=== PATIENT | female | born 2005 | race Two or more races ===

== ENCOUNTER 2024-05-07 06:35 | Emergency (ER) | payer BC, OTHER ==
[~2024-05-07] VITALS: Ht 154.9 cm; Wt 72.2 kg
[2024-05-07 08:07] LABS: Urine Bacteria FEW /hpf (None Seen); Urine Blood 2+ /uL (Negative); Urine Color Yellow (Yellow); Urine Mucus FEW (None Seen); Urine Protein, UAD 1+ (Negative); Urine Specific Gravity 1.035 (1.001-1.035); Urine Urobilinogen Normal (Negative); Urine WBC 1 /hpf (0 - 5); Urine pH 7.5 (5.0-9.0)
[2024-05-07 08:10] LABS: Urine Clarity Hazy (Clear)
[2024-05-07 08:28] LABS: Basophils # (auto) 0 10 ^3/uL (0-0.2); Basophils % (auto) 0.5 % (0.0-2.0); Eosinophils # (auto) 0 10 ^3/uL (0-0.8); Hematocrit 35.9 % (36.0-46.0); Hemoglobin 12.1 g/dL (12.2-16.2); Lymphocytes # (auto) 0.8 10 ^3/uL (0.4-5.4); Lymphocytes % (auto) 8.3 % (10.0-50.0); Mean Corpuscular Hemoglobin 30.1 pg (28.0-32.0); Mean Corpuscular Hgb Conc. 33.7 g/dL (32.0-36.0); Mean Corpuscular Volume 89.2 fL (80.0-100.0); Monocytes # (auto) 0.3 10 ^3/uL (0-1.3); Monocytes % (auto) 3.3 % (0.0-12.0); Neutrophils % (auto) 87.9 % (37.0-80.0); Red Blood Cells 4.03 10^6/uL (4.0-5.20); Red Cell Distribution Width 14.3 % (11.8-14.3); White Blood Cell 9.1 10^3/uL (4.4-10.8)
[2024-05-07] MEDS: SODIUM CHLORIDE 0.9% 1,000 ML IV ONE (08:37)
[2024-05-07] MEDS: ONDANSETRON HCL 4 MG/2 ML VIAL IV ONE (08:37)
[2024-05-07] MEDS ORDERED: ZOFR4T PO (09:04)
[2024-05-07] MEDS ORDERED: METR-344 PO (09:04)
[2024-05-07] MEDS: MORPHINE SULFATE INJ 2 MG/ml SYRG IV ONE (10:39)
[2024-05-07 10:40] VITALS: BP 115/71; PULSE 92; RESP 20; O2SAT 99
== END 2024-05-07 11:22 | disposition home or self-care (01) ==
LOC: ER 06:35
DX: K52.9 Noninfective gastroenteritis and colitis, unspecified (principal); F17.210 Nicotine dependence, cigarettes, uncomplicated
CPT/HCPCS: 36415; 81001; 85025; 96361; 96374; 96375; 99284; J2270; J2405; J7030

== ENCOUNTER 2024-05-07 23:54 | Emergency (ER) | payer BC ==
[~2024-05-07] VITALS: Ht 175.3 cm; Wt 71.7 kg
[~2024-05-07 23:54] MED LIST: METR-344 PO; ZOFR4T PO
[2024-05-08] VITALS: BP 111/70; PULSE 93; RESP 16; O2SAT 99
[2024-05-08 01:05] LABS: Urine Bacteria None Seen /hpf (None Seen)
[2024-05-08 01:36] LABS: Urine Blood TRACE /uL (Negative); Urine Clarity Clear (Clear); Urine Color Yellow (Yellow); Urine Mucus FEW (None Seen); Urine Protein, UAD 1+ (Negative); Urine Specific Gravity 1.034 (1.001-1.035); Urine Urobilinogen Normal (Negative); Urine WBC 6 /hpf (0 - 5); Urine pH 6.5 (5.0-9.0)
== END 2024-05-08 05:17 | disposition left against medical advice (07) ==
LOC: ER 23:54
DX: R10.10 Upper abdominal pain, unspecified (principal); R11.2 Nausea with vomiting, unspecified; F12.90 Cannabis use, unspecified, uncomplicated; Z53.21 Procedure and treatment not carried out due to patient leaving prior to being seen by health care provider
CPT/HCPCS: 81001

== ENCOUNTER 2024-05-10 10:24 | Emergency (ER) | payer BC ==
[~2024-05-10] VITALS: Ht 157.5 cm; Wt 69.6 kg
[2024-05-10 11:50] VITALS: TEMP 98.3
[2024-05-10] MEDS: SODIUM CHLORIDE 0.9% 1,000 ML IVB ONE (11:56)
[2024-05-10 11:57] LABS: Alanine Aminotransferase 17 U/L (7-40); Albumin 4.6 g/dL (3.2-4.8); Alkaline Phosphatase 151 U/L (46-116); Anion Gap 11 (5-15); Aspartate Aminotransferase 15 U/L (13-40); BUN/Creatinine Ratio 11.9 (10.0-20.0); Blood Urea Nitrogen 10 mg/dL (9-23); Calcium 9.2 mg/dL (8.7-10.4); Carbon Dioxide 23 mmol/L (20-30); Chloride 105 mmol/L (98-107); Glucose 90 mg/dL (74-106); Lipase 29 U/L (12-53); Sodium 139 mmol/L (136-145)
[2024-05-10 11:58] LABS: Bilirubin, Total 0.7 mg/dL (0.2-1.0); Total Protein 7.8 g/dL (5.7-8.2)
[2024-05-10 12:02] VITALS: PULSE 75; RESP 15; O2SAT 95
[2024-05-10] MEDS: PANTOPRAZOLE 40 MG/10 ML VIAL INJ IV ONE (12:02)
[2024-05-10] MEDS: PROCHLORPERAZINE EDISYLATE 5 MG/ML 2ML VIAL IV ONE (12:02)
[2024-05-10 13:13] LABS: Urine Bacteria FEW /hpf (None Seen); Urine Blood Negative /uL (Negative); Urine Clarity Turbid (Clear); Urine Color Yellow (Yellow); Urine Mucus MODERATE (None Seen); Urine Protein, UAD 1+ (Negative); Urine Specific Gravity 1.027 (1.001-1.035); Urine Urobilinogen Normal (Negative); Urine WBC 4 /hpf (0 - 5); Urine pH 6.5 (5.0-9.0)
[2024-05-10] MEDS ORDERED: ZOFR4T PO (13:55)
[2024-05-10] MEDS ORDERED: CIPR-173 PO (13:55)
[2024-05-10] MEDS: POTASSIUM CHL 20 Meq TABLET PO ONE (14:28)
[2024-05-10 14:35] VITALS: BP 124/73; PULSE 81; RESP 16; O2SAT 100
== END 2024-05-10 14:42 | disposition home or self-care (01) ==
LOC: ER 10:24
DX: N39.0 Urinary tract infection, site not specified (principal); R11.2 Nausea with vomiting, unspecified; F15.90 Other stimulant use, unspecified, uncomplicated; Z79.899 Other long term (current) drug therapy
CPT/HCPCS: 36415; 80053; 81001; 81025; 83690; 96361; 96374; 96375; 99284; J0780; J2470; J7030

== ENCOUNTER 2024-06-30 19:29 | Inpatient (IN) | payer BC ==
[~2024-06-30] VITALS: Ht 154.9 cm; Wt 74.8 kg
[2024-06-30] MEDS: SODIUM CHLORIDE 0.9% 1,000 ML IV ONE ×2 (00:32→21:15)
[~2024-06-30 19:29] MED LIST changes: +CIPR-173 PO
[2024-06-30 19:50] LABS: Urine Bacteria None Seen /hpf (None Seen)
[2024-06-30 20:00] LABS: Urine Blood 3+ /uL (Negative); Urine Clarity Clear (Clear); Urine Color Light-Orange (Yellow); Urine Mucus FEW (None Seen); Urine Protein, UAD 1+ (Negative); Urine Urobilinogen Normal (Negative); Urine WBC 25 /hpf (0 - 5)
[2024-06-30 20:45] VITALS: PULSE 80; RESP 18; O2SAT 98
[2024-06-30 21:20] LABS: Basophils # (auto) 0.1 10 ^3/uL (0-0.2); Basophils % (auto) 0.9 % (0.0-2.0); Eosinophils # (auto) 0 10 ^3/uL (0-0.8); Eosinophils % (auto) 0.1 % (0.0-7.0); Hematocrit 36.6 % (36.0-46.0); Hemoglobin 12.1 g/dL (12.2-16.2); Lymphocytes # (auto) 2.4 10 ^3/uL (0.4-5.4); Lymphocytes % (auto) 22.4 % (10.0-50.0); Mean Corpuscular Hemoglobin 29.5 pg (28.0-32.0); Mean Corpuscular Hgb Conc. 33.1 g/dL (32.0-36.0); Mean Corpuscular Volume 89.1 fL (80.0-100.0); Monocytes # (auto) 0.8 10 ^3/uL (0-1.3); Neutrophils # (auto) 7.3 10 ^3/uL (1.6-8.6); Neutrophils % (auto) 68.6 % (37.0-80.0); Platelet Count (auto) 360 10^3/uL (140-450); Red Blood Cells 4.11 10^6/uL (4.0-5.20); Red Cell Distribution Width 14.7 % (11.8-14.3); White Blood Cell 10.6 10^3/uL (4.4-10.8)
[2024-06-30 21:37] LABS: Alanine Aminotransferase 23 U/L (7-40); Alkaline Phosphatase 149 U/L (46-116); Anion Gap 10 (5-15); Aspartate Aminotransferase 18 U/L (13-40); BUN/Creatinine Ratio 12.4 (10.0-20.0); Blood Urea Nitrogen 12 mg/dL (9-23); Calcium 9.8 mg/dL (8.7-10.4); Carbon Dioxide 22 mmol/L (20-30); Chloride 105 mmol/L (98-107); Glucose 94 mg/dL (74-106); Potassium 3.5 mmol/L (3.5-5.1); Sodium 137 mmol/L (136-145)
[2024-06-30 21:38] LABS: Bilirubin, Total 0.8 mg/dL (0.2-1.0); Total Protein 8.3 g/dL (5.7-8.2)
[2024-07-01] MEDS ORDERED: HYDROcodone-ACET 5/325MG TAB PO PRN
[2024-07-01] MEDS ORDERED: NITROGLYCERIN 0.4 MG SL TAB SL PRN
[2024-07-01] MEDS ORDERED: ACETAMINOPHEN 325 MG TAB PO PRN
[2024-07-01] MEDS ORDERED: MORPHINE SULFATE INJ 2 MG/ml SYRG IV PRN
[2024-07-01] MEDS ORDERED: DOCUSATE SOD 100 MG CAP PO PRN
[2024-07-01] MEDS: cefTRIAXone 1GM/50ML D5W 50 ML IV ONE (00:30)
[2024-07-01] MEDS: ONDANSETRON HCL 4 MG/2 ML VIAL IV ONE (00:30)
[2024-07-01] MEDS: MORPHINE SULFATE INJ 2 MG/ml SYRG IV ONE (00:32)
[2024-07-01 02:54] VITALS: BP 125/84; PULSE 75; RESP 18; TEMP 98.3; O2SAT 98
[2024-07-01] MEDS ORDERED: PANT40TA2 PO (03:13)
[2024-07-01] MEDS: D5W/SOD CHLO 0.9% 1,000 ML IV SCH (03:15)
[2024-07-01] MEDS: ONDANSETRON HCL 4 MG/2 ML VIAL IV PRN (04:41)
[2024-07-01] MEDS: MORPHINE SULFATE INJ 2 MG/ml SYRG IV PRN (04:54)
[2024-07-01 05:00] VITALS: BP 116/84; PULSE 78; RESP 15; TEMP 98.9; O2SAT 100
[2024-07-01 06:39] LABS: Basophils # (auto) 0 10 ^3/uL (0-0.2); Basophils % (auto) 0.4 % (0.0-2.0); Eosinophils # (auto) 0 10 ^3/uL (0-0.8); Eosinophils % (auto) 0.1 % (0.0-7.0); Hematocrit 32.3 % (36.0-46.0); Hemoglobin 11.3 g/dL (12.2-16.2); Lymphocytes # (auto) 1.5 10 ^3/uL (0.4-5.4); Lymphocytes % (auto) 19.2 % (10.0-50.0); Mean Corpuscular Hemoglobin 31.5 pg (28.0-32.0); Mean Corpuscular Hgb Conc. 34.9 g/dL (32.0-36.0); Mean Corpuscular Volume 90.1 fL (80.0-100.0); Monocytes # (auto) 0.7 10 ^3/uL (0-1.3); Monocytes % (auto) 8.5 % (0.0-12.0); Neutrophils # (auto) 5.6 10 ^3/uL (1.6-8.6); Neutrophils % (auto) 71.8 % (37.0-80.0); Platelet Count (auto) 282 10^3/uL (140-450); Red Blood Cells 3.58 10^6/uL (4.0-5.20); Red Cell Distribution Width 14.6 % (11.8-14.3); White Blood Cell 7.8 10^3/uL (4.4-10.8)
[2024-07-01 06:50] LABS: Alanine Aminotransferase 17 U/L (7-40); Alkaline Phosphatase 125 U/L (46-116); Anion Gap 8 (5-15); BUN/Creatinine Ratio 13.2 (10.0-20.0); Blood Urea Nitrogen 10 mg/dL (9-23); Calcium 8.3 mg/dL (8.7-10.4); Carbon Dioxide 22 mmol/L (20-30); Chloride 109 mmol/L (98-107); Glucose 96 mg/dL (74-106); Potassium 3.3 mmol/L (3.5-5.1); Sodium 139 mmol/L (136-145)
[2024-07-01 06:51] LABS: Albumin 4.2 g/dL (3.2-4.8); Aspartate Aminotransferase 12 U/L (13-40); Bilirubin, Total 0.5 mg/dL (0.2-1.0); Total Protein 6.9 g/dL (5.7-8.2)
[2024-07-01 09:00] VITALS: BP 110/71; PULSE 64; RESP 20; TEMP 97.9; O2SAT 99
[2024-07-01] MEDS: POTASSIUM EFFERVESENT TAB 25 MEQ PO ONE (09:00)
[2024-07-01] MEDS: cefTRIAXone 1GM/50ML D5W 50 ML IV SCH (09:23)
[2024-07-01] MEDS: POTASSIUM CHL 20MEQ/100ML 100 ML IV ONE (11:41)
[2024-07-01 13:00] VITALS: BP 119/75; PULSE 80; RESP 20; TEMP 98.3; O2SAT 98
[2024-07-01 17:00] VITALS: BP 116/79; PULSE 67; RESP 20; TEMP 98.3; O2SAT 96
[2024-07-01 21:00] VITALS: BP 101/52; PULSE 64; RESP 16; TEMP 98.6; O2SAT 98
[2024-07-02 01:00] VITALS: BP 101/68; PULSE 67; RESP 16; TEMP 98.4; O2SAT 97
[2024-07-02 05:00] VITALS: BP 105/70; PULSE 63; RESP 16; TEMP 97.6; O2SAT 97
[2024-07-02 06:31] LABS: Alanine Aminotransferase 14 U/L (7-40); Alkaline Phosphatase 120 U/L (46-116); Anion Gap 10 (5-15); Aspartate Aminotransferase 12 U/L (13-40); Basophils # (auto) 0.1 10 ^3/uL (0-0.2); Basophils % (auto) 0.9 % (0.0-2.0); Calcium 8.5 mg/dL (8.7-10.4); Carbon Dioxide 20 mmol/L (20-30); Chloride 108 mmol/L (98-107); Eosinophils # (auto) 0.1 10 ^3/uL (0-0.8); Eosinophils % (auto) 0.7 % (0.0-7.0); Glucose 95 mg/dL (74-106); Hematocrit 33.5 % (36.0-46.0); Hemoglobin 11.4 g/dL (12.2-16.2); Lymphocytes # (auto) 2.7 10 ^3/uL (0.4-5.4); Lymphocytes % (auto) 39.5 % (10.0-50.0); Mean Corpuscular Hemoglobin 31.2 pg (28.0-32.0); Mean Corpuscular Hgb Conc. 33.9 g/dL (32.0-36.0); Mean Corpuscular Volume 91.9 fL (80.0-100.0); Monocytes # (auto) 0.6 10 ^3/uL (0-1.3); Monocytes % (auto) 8.2 % (0.0-12.0); Neutrophils # (auto) 3.5 10 ^3/uL (1.6-8.6); Neutrophils % (auto) 50.7 % (37.0-80.0); Nucleated Red Blood Cells % 0.1 %; Platelet Count (auto) 268 10^3/uL (140-450); Potassium 3.3 mmol/L (3.5-5.1); Red Blood Cells 3.64 10^6/uL (4.0-5.20); Red Cell Distribution Width 14.4 % (11.8-14.3); Sodium 138 mmol/L (136-145); White Blood Cell 6.8 10^3/uL (4.4-10.8)
[2024-07-02 06:32] LABS: Bilirubin, Total 0.7 mg/dL (0.2-1.0); Total Protein 6.6 g/dL (5.7-8.2)
[2024-07-02 06:36] LABS: BUN/Creatinine Ratio 6.9 (10.0-20.0); Blood Urea Nitrogen < 5 mg/dL (9-23)
[2024-07-02 09:00] VITALS: BP 111/76; PULSE 71; RESP 16; TEMP 98.4; O2SAT 97
[2024-07-02] MEDS: POTASSIUM CHLORIDE 40 MEQ, LIDOCAINE 1% (LOCAL ANESTH.) 4 ML in SODIUM CHL 0.9% 250 ML IV ONE (11:08)
[2024-07-02 12:59] LABS: Hepatitis B Surface Antibody Negative (Negative)
[2024-07-02 13:00] VITALS: BP 124/81; PULSE 57; RESP 17; TEMP 98.3; O2SAT 98
[2024-07-02 13:01] LABS: Hepatitis B Surface Antigen Negative (Negative)
[2024-07-02 13:23] LABS: Hepatitis C Antibody Negative (Negative)
[2024-07-02] MEDS: PANTOPRAZOLE 40 MG/10 ML VIAL INJ IV ONE (13:48)
[2024-07-02] MEDS: metroNIDAZOLE 500MG/100ML 100 ML IV SCH (15:40)
[2024-07-02 17:00] VITALS: BP 116/70; PULSE 63; RESP 17; TEMP 98.5; O2SAT 98
[2024-07-02 21:00] VITALS: BP 130/93; PULSE 85; RESP 22; TEMP 98; O2SAT 98
[2024-07-03 01:00] VITALS: BP 109/71; PULSE 60; RESP 22; TEMP 97.4; O2SAT 100
[2024-07-03 05:00] VITALS: BP 112/75; PULSE 61; RESP 22; TEMP 97.6; O2SAT 99
[2024-07-03 06:26] LABS: Basophils # (auto) 0 10 ^3/uL (0-0.2); Basophils % (auto) 0.7 % (0.0-2.0); Eosinophils # (auto) 0.1 10 ^3/uL (0-0.8); Hematocrit 36.6 % (36.0-46.0); Hemoglobin 12.2 g/dL (12.2-16.2); Lymphocytes # (auto) 1.9 10 ^3/uL (0.4-5.4); Lymphocytes % (auto) 30.9 % (10.0-50.0); Mean Corpuscular Hemoglobin 29.8 pg (28.0-32.0); Mean Corpuscular Hgb Conc. 33.3 g/dL (32.0-36.0); Mean Corpuscular Volume 89.7 fL (80.0-100.0); Monocytes # (auto) 0.5 10 ^3/uL (0-1.3); Monocytes % (auto) 7.6 % (0.0-12.0); Neutrophils # (auto) 3.6 10 ^3/uL (1.6-8.6); Neutrophils % (auto) 59.8 % (37.0-80.0); Platelet Count (auto) 293 10^3/uL (140-450); Red Blood Cells 4.08 10^6/uL (4.0-5.20); Red Cell Distribution Width 14.7 % (11.8-14.3)
[2024-07-03 06:39] LABS: INR 1.09 (0.9-1.15); Partial Thromboplastin Time 28.8 SEC (24.5-34.5); Prothrombin Time 11.5 sec (9.3-11.8)
[2024-07-03 06:47] LABS: Chloride 106 mmol/L (98-107); Potassium 3.1 mmol/L (3.5-5.1); Sodium 139 mmol/L (136-145)
[2024-07-03 06:48] LABS: Anion Gap 8 (5-15); Calcium 9.4 mg/dL (8.7-10.4); Carbon Dioxide 25 mmol/L (20-30)
[2024-07-03 06:53] LABS: Glucose 89 mg/dL (74-106)
[2024-07-03 06:54] LABS: Magnesium 2.2 mg/dL (1.6-2.6)
[2024-07-03 06:55] LABS: BUN/Creatinine Ratio 6.8 (10.0-20.0); Blood Urea Nitrogen < 5 mg/dL (9-23)
[2024-07-03 07:06] LABS: RPR Non Reactive (Non Reactive)
[2024-07-03 08:05] VITALS: BP 145/73; PULSE 71; RESP 18; TEMP 98.4; O2SAT 97
[2024-07-03] MEDS: POTASSIUM CHLORIDE 60 MEQ, LIDOCAINE 1% (LOCAL ANESTH.) 6 ML in SODIUM CHL 0.9% 500 ML IV ONE (08:15)
[2024-07-03] MEDS: PANTOPRAZOLE 40 MG/10 ML VIAL INJ IV SCH (09:16)
[2024-07-03 12:05] VITALS: BP 137/89; PULSE 63; RESP 18; TEMP 98.3; O2SAT 97
[2024-07-03] MEDS ORDERED: PANT40TA2 PO (15:24)
[2024-07-03 16:10] VITALS: BP 123/92; PULSE 77; RESP 18; TEMP 98.2; O2SAT 98
[2024-07-03 17:16] VITALS: BP 137/89; PULSE 63; RESP 18; TEMP 98.3; O2SAT 97
== END 2024-07-03 18:47 | disposition home or self-care (01) | DRG 392 ==
LOC: ER 19:29 → OVERFLOW 23:50 → CENTRAL 07-01 02:25
PROVIDERS: ADMIT Internal Medicine; ATTEND Emergency Medicine
DX: K52.9 Noninfective gastroenteritis and colitis, unspecified (principal); N39.0 Urinary tract infection, site not specified; D64.9 Anemia, unspecified; F12.10 Cannabis abuse, uncomplicated; E87.6 Hypokalemia; E87.8 Other disorders of electrolyte and fluid balance, not elsewhere classified; E66.9 Obesity, unspecified; Z79.2 Long term (current) use of antibiotics; Z79.899 Other long term (current) drug therapy; Z83.3 Family history of diabetes mellitus; Z87.440 Personal history of urinary (tract) infections; Z90.49 Acquired absence of other specified parts of digestive tract; Z71.51 Drug abuse counseling and surveillance of drug abuser; Z68.31 Body mass index [BMI] 31.0-31.9, adult
CPT/HCPCS: 36415; 74176; 76705; 80048; 80053; 81001; 81025; 83735; 85025; 85610; 85730; 86592; 86703; 86706; 86803; 87086; 87340; 99291; G0378; J2001; J2405; J2470; J3480; J3490; J7042

== ENCOUNTER 2024-09-06 19:29 | Emergency (ER) | payer BC ==
[~2024-09-06] VITALS: Ht 157.5 cm; Wt 71.1 kg
[~2024-09-06 19:29] MED LIST changes: +PANT40TA2 PO
--- NOTE | 2024-09-06 20:00 | ED.PDOC ---
GI ASSESSMENT HPI Comments 18 year old female came to ER due to abdominal pain. Patient states for the past 2 days she has been having intermittent episodes of left lower quadrant abdominal pain, associated with bouts of nausea, vomiting and loose non bloody diarrhea. States she could not keep anything in. Was given Zofran but offered no relief. Denies being . Denies any abdominal surgeries, Chief Complaint: Abdominal Pain Time Seen by MD: 19:58 Primary Care Provider: UNKNOWN Reviewed Notes: Nurses Notes Allergies: Coded Allergies: NO KNOWN ALLERGIES (Unverified , 05/07/24) Home Meds Active Scripts Pantoprazole Sodium Sesquihydr (Protonix) 40 Mg Tab, 40 MG PO DAILY for 30 Days, #30 TAB Prov:KARLEY CANDELARIO MD 07/03/24 Ciprofloxacin Hcl (Cipro) 500 Mg Tab, 1 TAB PO BID, #14 TAB Prov:ALEX OLIVER MD 05/10/24 Ondansetron Odt 4MG Tab (ZOFRAN PO) 4 Mg Tb, 4 MG PO DAILY for 5 Days, #5 TAB ODT TAB-DISSOLVE IN MOUTH, THEN SWALLOW Prov:ALEX OLIVER MD 05/10/24 Metronidazole (Flagyl) 500 Mg Tab, 1 TAB PO TID for 5 Days, #15 TAB Prov:CISCO MONTANEZ MD 05/07/24 Reported Medications Pantoprazole Sodium Sesquihydr (Protonix) 40 Mg Tab, PO DAILY, #30 TAB 07/01/24 Information Source: Patient Mode of Arrival: Ambulatory Timing: Hours Duration: Since onset Prehospital treatment: None Quality: Aching Vomitus: Watery Stool: Loose, Watery Severity: Moderate Recent: Possible spoiled food Recent Hx of: None Pain Location: LLQ Modifying Factors: Nothing Associated sign and symptoms: Nausea, Vomiting, Diarrhea, Abdominal Pain Past Medical History PAST MEDICAL HISTORY: UTI'S Surgical History: Denies all surgeries 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 Family History Family History: Family hx of DM Social History Smoker: Non-Smoker Alcohol: Occasionally Drugs: Marijuana Lives In: Home Constitutional: denies: chills, diaphoresis, fatigue, fever, malaise, sweats, weakness, others EENTM: denies: blurred vision, double vision, ear bleeding, ear discharge, ear drainage, ear pain, ear ringing, eye pain, eye redness, hearing loss, mouth pain, mouth swelling, nasal discharge, nose bleeding, nose congestion, nose mervin n, photophobia, tearing, throat pain, throat swelling, voice changes, others Respiratory: denies: cough, hemoptysis, orthopnea, SOB at rest, shortness of breath, SOB with excertion, stridor, wheezing, others Cardiovascular: denies: chest pain, dizzy spells, diaphoresis, Dyspnea on exertion, edema, irregular heart beat, left arm pain, lightheadedness, palpitations, PND, syncope, others Gastrointestinal: reports: abdominal pain, diarrhea, nausea, vomiting; denies: abdomen distended, blood streaked bowels, constipated, dysphagia, difficulty swallowing, hematemesis, melena, poor appetite, poor fluid intake, rectal bleeding, rectal pain, others Genitourinary: denies: abnormal vagina bleeding, burning, dyspareunia, dysuria, flank pain, frequency, hematuria, incontinence, pain, , vagina discharge, urgency, others Neurological: denies: dizziness, fainting, headache, left sided numbness, left sided weakness, numbness, paresthesia, pre-existing deficit, right sided numbness, right sided weakness, seizure, speech problems, tingling, tremors, weakness, others Musculoskeletal: denies: back pain, gout, joint pain, joint swelling, muscle pain, muscle stiffness, neck pain, others Integumetry: denies: bruises, change in color, change in hair/nails, dryness, laceration, lesions, lumps, rash, wounds, others Allergic/Immunocompromised: denies: Difficulty Healing, Frequent Infections, Hives, Itching, others Hematologic/Lymphatic: denies: anemia, blood clots, easy bleeding, easy bruising, swollen glands, others Endocrine: denies: excessive hunger, excessive sweating, excessive thirst, excessive urination, flushing, intolerance to cold, intolerance to heat, unexplained weight gain, unexplained weight loss, others Psychiatric: denies: anxiety, bipolar disorder, depression, hopeless, panic disorder, schizophrenia, sleepless, suicidal, others Physical Exam General Appearance: No Apparent Distress, Normal HEENT: Normal ENT Inspection, Pharynx Normal, TMs Normal Neck: Full Range of Motion, Non-Tender, Normal, Normal Inspection Respiratory: Chest Non-Tender, Lungs Clear, No Accessory Muscle Use, No Respiratory Distress, Normal Breath Sounds Cardiovascular: No Edema, No JVD, No Murmur, No Gallop, Normal Peripheral Pulses, Regular Rate/Rhythm Breast Exam: Deferred Gastrointestinal: LLQ, No Organomegaly, No Pulsatile Mass, Normal Bowel Sounds, Soft, Tenderness Genitalia: Deferred Pelvic: Deferred Rectal: Deferred Extremities: No calf tenderness, Normal capillary refill, Normal inspection, Normal range of motion, Non-tender, No pedal edema Musculoskeletal : Apperance: Normal Neurologic: Alert, services tech II-XII nml as Tested, No Motor Deficits, Normal Affect, Normal Mood, No Sensory Deficits Cerebellar Function: Normal Reflexes: Normal Skin: Dry, Normal Color, Warm Lymphatic: No Adenopathy Was a procedure done? Was a procedure done?: No GI differential Dx Differential Diagnosis: Diverticular disease, Gastritis/PUD, Gastroenteritis, Ovarian cyst/torsion, Pancreatitis, UTI, Urolithiasis, Dehydration X-Ray, Labs, Meds, VS Vital Signs Date Time Temp Pulse Resp B/P (MAP) Pulse Ox O2 Delivery O2 Flow Rate FiO2 09/06/24 22:28 Room Air* 0 21 09/06/24 22:19 98.9 72 18 114/69 (84) 98 98.9 09/06/24 19:36 99.3 112 18 109/67 (81) 99 Lab Test 09/06/24 20:10 09/06/24 19:42 Range/Units White Blood Count 11.5 H 4.4-10.8 10^3/uL Red Blood Count 4.28 4.0-5.20 10^6/uL Hemoglobin 12.4 12.2-16.2 g/dL Hematocrit 37.5 36.0-46.0 % Mean Corpuscular Volume 87.6 80.0-100.0 fL Mean Corpuscular Hemoglobin 28.8 28.0-32.0 pg Mean Corpuscular Hemoglobin Concent 32.9 32.0-36.0 g/dL Red Cell Distribution Width 14.7 H 11.8-14.3 % Platelet Count 372 140-450 10^3/uL Mean Platelet Volume 8.5 6.9-10.8 fL Neutrophils (%) (Auto) 80.4 H 37.0-80.0 % Lymphocytes (%) (Auto) 11.8 10.0-50.0 % Monocytes (%) (Auto) 7.5 0.0-12.0 % Eosinophils (%) (Auto) 0.0 0.0-7.0 % Basophils (%) (Auto) 0.3 0.0-2.0 % Neutrophils # (Auto) 9.3 H 1.6-8.6 10 ^3/uL Lymphocytes # (Auto) 1.4 0.4-5.4 10 ^3/uL Monocytes # (Auto) 0.9 0-1.3 10 ^3/uL Eosinophils # (Auto) 0 0-0.8 10 ^3/uL Basophils # (Auto) 0 0-0.2 10 ^3/uL Nucleated Red Blood Cells 0.0 % Sodium Level 140 136-145 mmol/L Potassium Level 3.2 L 3.5-5.1 mmol/L Chloride Level 102 98-107 mmol/L Carbon Dioxide Level 26 20-31 mmol/L Anion Gap 12 5-15 Blood Urea Nitrogen 12 9-23 mg/dL Creatinine 0.82 0.550-1.02 mg/dL Glomerular Filtration Rate Calc 106 >90 mL/min BUN/Creatinine Ratio 14.6 10.0-20.0 Serum Glucose 107 H 74-106 mg/dL Calcium Level 9.8 8.7-10.4 mg/dL Urine Color Yellow Yellow Urine Clarity Clear Clear Urine pH 6.0 5.0-9.0 Urine Specific [place] 1.033 1.001-1.035 Urine Protein 1+ H Negative Urine Ketones 4+ H Negative Urine Blood 3+ H Negative /uL Urine Nitrite Negative Negative Urine Bilirubin Negative Negative Urine Urobilinogen Normal Negative mg/dL Urine Leukocyte Esterase Trace Negative /uL Urine RBC 115 0 - 4 /hpf Urine WBC 5 0 - 5 /hpf Urine Squamous Epithelial Cells Few <5 /hpf Urine Bacteria None seen None Seen /hpf Urine Mucus Few None Seen Urine Glucose Normal Normal mg/dL Current Medications Medications (Trade) Dose Ordered Sig/Nikki Route Start Time Stop Time Status Last Admin Sodium Chloride 1,000 ml @ 1,000 mls/hr Q1H ONCE IV 09/06/24 20:00 09/06/24 21:04 DC 09/06/24 22:22 Ondansetron HCl (Zofran) 4 mg ONCE ONCE IV 09/06/24 20:00 11/14/24 20:01 DC 09/06/24 22:23 Famotidine (Pepcid Injection) 20 mg ONCE ONCE IV 09/06/24 20:00 09/06/24 20:01 DC 09/06/24 22:23 Ketorolac Tromethamine (Toradol Injection) 15 mg ONCE ONCE IV 09/06/24 20:00 09/06/24 20:01 DC 09/06/24 22:23 Time of 1ST Reevaluation: 19:53 Reevaluation 1ST: Unchanged Patient Education/Counseling: Diagnosis, Treatment Family Education/Counseling: No Family Present Departure 1 Departure Time of Disposition: 23:08 (Patient with diagnosed with COVID less than a week ago. Patient's symptoms are consistent with a viral syndrome. Patient went benign labs and benign UA. We will discharge patient home with outpatient follow up) Impression: Primary Impression: Acute viral syndrome Additional Impressions: COVID-19 Nausea and vomiting Qualified Codes: R11.2 - Nausea with vomiting, unspecified Abdominal pain Qualified Codes: R10.84 - Generalized abdominal pain Disposition: 01 HOME / SELF CARE / HOMELESS Condition: Stable Additional Instructions: You likely have a viral illness. It is important to stay well rested and well hydrated. You can take Tylenol and Motrin as needed for pain and fever. For a sore throat you can drink warm tea with honey. You can take [id number] pseudoephedrine for nasal congestion. He should follow up with your regular doctor within 1 week to ensure you are doing better. If your symptoms worsen or you have any other concerns please return to the emergency room. Discharged With: Self Critical Care Note Critical Care Time?: No Stability Stability form required: No Heart Score Heart Score: Heart Score Response (Comments) Value History N/A 0 EKG N/A 0 Age N/A 0 Risk Factors N/A 0 Troponin N/A 0 Total 0 I personally scribed for TISHA LANDRY MD ([email or web address]) on 09/06/24 at 20:00. Electronically submitted by Steve Edwards ([facility]). TISHA LANDRY MD Sep 06, 2024 20:00
[2024-09-06 20:14] LABS: Urine Bacteria None Seen /hpf (None Seen)
[2024-09-06 20:38] LABS: Urine Blood 3+ /uL (Negative); Urine Clarity Clear (Clear); Urine Color Yellow (Yellow); Urine Mucus FEW (None Seen); Urine Protein, UAD 1+ (Negative); Urine Specific Gravity 1.033 (1.001-1.035); Urine Urobilinogen Normal (Negative); Urine WBC 5 /hpf (0 - 5)
[2024-09-06 20:40] LABS: Basophils # (auto) 0 10 ^3/uL (0-0.2); Basophils % (auto) 0.3 % (0.0-2.0); Eosinophils # (auto) 0 10 ^3/uL (0-0.8); Hematocrit 37.5 % (36.0-46.0); Hemoglobin 12.4 g/dL (12.2-16.2); Lymphocytes # (auto) 1.4 10 ^3/uL (0.4-5.4); Lymphocytes % (auto) 11.8 % (10.0-50.0); Mean Corpuscular Hemoglobin 28.8 pg (28.0-32.0); Mean Corpuscular Hgb Conc. 32.9 g/dL (32.0-36.0); Mean Corpuscular Volume 87.6 fL (80.0-100.0); Monocytes # (auto) 0.9 10 ^3/uL (0-1.3); Monocytes % (auto) 7.5 % (0.0-12.0); Neutrophils # (auto) 9.3 10 ^3/uL (1.6-8.6); Neutrophils % (auto) 80.4 % (37.0-80.0); Platelet Count (auto) 372 10^3/uL (140-450); Red Blood Cells 4.28 10^6/uL (4.0-5.20); Red Cell Distribution Width 14.7 % (11.8-14.3); White Blood Cell 11.5 10^3/uL (4.4-10.8)
[2024-09-06 20:50] LABS: Chloride 102 mmol/L (98-107); Potassium 3.2 mmol/L (3.5-5.1); Sodium 140 mmol/L (136-145)
[2024-09-06 20:51] LABS: Anion Gap 12 (5-15); Carbon Dioxide 26 mmol/L (20-31)
[2024-09-06 20:52] LABS: Calcium 9.8 mg/dL (8.7-10.4)
[2024-09-06 20:56] LABS: BUN/Creatinine Ratio 14.6 (10.0-20.0); Blood Urea Nitrogen 12 mg/dL (9-23); Glucose 107 mg/dL (74-106)
[2024-09-06] MEDS: SODIUM CHLORIDE 0.9% 1,000 ML IV ONE (22:22)
[2024-09-06] MEDS: KETOROLAC TROMETH 30 MG/ML 1ML VIAL IV ONE (22:23)
[2024-09-06] MEDS: FAMOTIDINE (10MG/ML) 2ML VL IV ONE (22:23)
[2024-09-06] MEDS: ONDANSETRON HCL 4 MG/2 ML VIAL IV ONE (22:23)
[2024-09-06 23:25] VITALS: BP 106/70; PULSE 70; RESP 16; TEMP 99.1; O2SAT 99
== END 2024-09-06 23:55 | disposition home or self-care (01) ==
LOC: ER 19:29
DX: U07.1 COVID-19 (principal); B34.9 Viral infection, unspecified; R11.2 Nausea with vomiting, unspecified; R10.9 Unspecified abdominal pain
CPT/HCPCS: 36415; 80048; 81001; 85025; 96361; 96374; 96375; 99284; J1885; J2405; J3490; J7030

== ENCOUNTER 2024-10-04 08:55 | Inpatient (IN) | payer BC ==
[~2024-10-04] VITALS: Ht 157.5 cm; Wt 75.1 kg
--- NOTE | 2024-10-04 09:09 | ED.PDOC ---
GI ASSESSMENT HPI Comments 18 y.o pale appearing female presents to the ED for a chief complaint of abdominal pain associated with nausea, vomiting, diarrhea, and SOB that started 2 days ago. Patient reports pain has been constant, localized to the mid upper region that does not radiate and has no modifying factors. Patient denies eating any out of her usual, hematuria, bloody stool, hematemesis, fever, chills. Chief Complaint: Nausea/Vomiting Time Seen by MD: 09:02 Primary Care Provider: UNKNOWN Reviewed Notes: Nurses Notes, Medications, Allergies Allergies: Coded Allergies: NO KNOWN ALLERGIES (Unverified , 05/07/24) Home Meds Active Scripts Pantoprazole Sodium Sesquihydr (Protonix) 40 Mg Tab, 40 MG PO DAILY for 30 Days, #30 TAB Prov:KARLEY CANDELARIO MD 07/03/24 Ciprofloxacin Hcl (Cipro) 500 Mg Tab, 1 TAB PO BID, #14 TAB Prov:ALEX OLIVER MD 05/10/24 Ondansetron Odt 4MG Tab (ZOFRAN PO) 4 Mg Tb, 4 MG PO DAILY for 5 Days, #5 TAB ODT TAB-DISSOLVE IN MOUTH, THEN SWALLOW Prov:ALEX OLIVER MD 05/10/24 Metronidazole (Flagyl) 500 Mg Tab, 1 TAB PO TID for 5 Days, #15 TAB Prov:CISCO MONTANEZ MD 05/07/24 Reported Medications Pantoprazole Sodium Sesquihydr (Protonix) 40 Mg Tab, PO DAILY, #30 TAB 07/01/24 Information Source: Patient Mode of Arrival: Ambulatory Timing: Days (2) Duration: Since onset Quality: Aching Vomitus: Hard Stool: Loose Severity: Moderate Recent: None Recent Hx of: None Pain Location: Diffuse, Epigastric Modifying Factors: Nothing Associated sign and symptoms: Nausea, Vomiting, Diarrhea, Abdominal Pain Past Medical History PAST MEDICAL HISTORY: UTI'S Surgical History: Denies all surgeries 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 Family History Family History: Family hx of DM Social History Smoker: Non-Smoker Alcohol: Occasionally Drugs: Marijuana Lives In: Home Constitutional: denies: chills, diaphoresis, fatigue, fever, malaise, sweats, weakness, others EENTM: denies: blurred vision, double vision, ear bleeding, ear discharge, ear drainage, ear pain, ear ringing, eye pain, eye redness, hearing loss, mouth pain, mouth swelling, nasal discharge, nose bleeding, nose congestion, nose pain, photophobia, tearing, throat pain, throat swelling, voice changes, others Respiratory: reports: shortness of breath; denies: cough, hemoptysis, orthopnea, SOB at rest, SOB with excertion, stridor, wheezing, others Cardiovascular: denies: chest pain, dizzy spells, diaphoresis, Dyspnea on exertion, edema, irregular heart beat, left arm pain, lightheadedness, palpitations, PND, syncope, others Gastrointestinal: reports: abdominal pain, diarrhea, nausea, vomiting; denies: abdomen distended, blood streaked bowels, constipated, dysphagia, difficulty swallowing, hematemesis, melena, poor appetite, poor fluid intake, rectal bleeding, rectal pain, others Genitourinary: denies: abnormal vagina bleeding, burning, dyspareunia, dysuria, flank pain, frequency, hematuria, incontinence, pain, , vagina discharge, urgency, others Neurological: denies: dizziness, fainting, headache, left sided numbness, left sided weakness, numbness, paresthesia, pre-existing deficit, right sided numbness, right sided weakness, seizure, speech problems, tingling, tremors, weakness, others Musculoskeletal: denies: back pain, gout, joint pain, joint swelling, muscle pain, muscle stiffness, neck pain, others Integumetry: reports: change in color (pale appearing ); denies: bruises, sheron nge in hair/nails, dryness, laceration, lesions, lumps, rash, wounds, others Allergic/Immunocompromised: denies: Difficulty Healing, Frequent Infections, Hives, Itching, others Hematologic/Lymphatic: denies: anemia, blood clots, easy bleeding, easy bruising, swollen glands, others Endocrine: denies: excessive hunger, excessive sweating, excessive thirst, excessive urination, flushing, intolerance to cold, intolerance to heat, unexplained weight gain, unexplained weight loss, others Psychiatric: denies: anxiety, bipolar disorder, depression, hopeless, panic disorder, schizophrenia, sleepless, suicidal, others All Other Systems: Reviewed and Negative Physical Exam General Appearance: Moderate Distress HEENT: Normal ENT Inspection, Pharynx Normal, TMs Normal Neck: Full Range of Motion, Non-Tender, Normal, Normal Inspection Respiratory: Chest Non-Tender, Lungs Clear, No Accessory Muscle Use, No Respiratory Distress, Normal Breath Sounds Cardiovascular: No Edema, No JVD, No Murmur, No Gallop, Normal Peripheral Pulses, Regular Rate/Rhythm Breast Exam: Deferred Gastrointestinal: No Organomegaly, Non Tender, No Pulsatile Mass, Normal Bowel Sounds, Soft Genitalia: Deferred Pelvic: Deferred Rectal: Deferred Extremities: No calf tenderness, Normal capillary refill, Normal inspection, Normal range of motion, Non-tender, No pedal edema Musculoskeletal : Apperance: Normal Neurologic: Alert, counting machine operator II-XII nml as Tested, No Motor Deficits, Normal Affect, Normal Mood, No Sensory Deficits Cerebellar Function: NOT DONE Reflexes: NOT DONE Skin: Pallor Peripheral Pulses: 3+ Radial (R), 3+ Radial (L) Lymphatic: No Adenopathy Was a procedure done? Was a procedure done?: No GI differential Dx Differential Diagnosis: Constipation, Diverticular disease, Esophagitis, Gastritis/PUD, Gastroenteritis, UTI, Dehydration, Electrolyte Imbalance, Food Poisoning, , Viral X-Ray, Labs, Meds, VS Vital Signs Date Time Temp Pulse Resp B/P (MAP) Pulse Ox O2 Delivery O2 Flow Rate FiO2 10/04/24 09:31 84 16 125/63 10/04/24 09:12 84 18 96 Room Air 10/04/24 09:12 84 18 125/63 (83) 98 10/04/24 09:02 97.9 84 18 108/65 (79) 99 Lab Test 10/04/24 11:04 10/04/24 09:25 Range/Units Hepatitis A IgM Antibody Pending Hepatitis B Surface Antigen Pending Hepatitis B Core IgM Antibody Pending Hepatitis C Antibody Pending HIV (1&2) Antibody Pending White Blood Count 11.7 H 4.4-10.8 10^3/uL Red Blood Count 4.15 4.0-5.20 10^6/uL Hemoglobin 12.0 L 12.2-16.2 g/dL Hematocrit 36.5 36.0-46.0 % Mean Corpuscular Volume 87.9 80.0-100.0 fL Mean Corpuscular Hemoglobin 28.8 28.0-32.0 pg Mean Corpuscular Hemoglobin Concent 32.8 32.0-36.0 g/dL Red Cell Distribution Width 15.1 H 11.8-14.3 % Platelet Count 329 140-450 10^3/uL Mean Platelet Volume 8.8 6.9-10.8 fL Neutrophils (%) (Auto) 86.0 H 37.0-80.0 % Lymphocytes (%) (Auto) 10.9 10.0-50.0 % Monocytes (%) (Auto) 2.8 0.0-12.0 % Eosinophils (%) (Auto) 0.1 0.0-7.0 % Basophils (%) (Auto) 0.2 0.0-2.0 % Neutrophils # (Auto) 10.0 H 1.6-8.6 10 ^3/uL Lymphocytes # (Auto) 1.3 0.4-5.4 10 ^3/uL Monocytes # (Auto) 0.3 0-1.3 10 ^3/uL Eosinophils # (Auto) 0 0-0.8 10 ^3/uL Basophils # (Auto) 0 0-0.2 10 ^3/uL Nucleated Red Blood Cells 0.0 % Sodium Level 139 136-145 mmol/L Potassium Level 3.4 L 3.5-5.1 mmol/L Chloride Level 104 98-107 mmol/L Carbon Dioxide Level 20 20-31 mmol/L Anion Gap 15 5-15 Blood Urea Nitrogen 9 9-23 mg/dL Creatinine 0.77 0.550-1.02 mg/dL Glomerular Filtration Rate Calc 114 >90 mL/min BUN/Creatinine Ratio 11.7 10.0-20.0 Serum Glucose 161 H 74-106 mg/dL Calcium Level 10.2 8.7-10.4 mg/dL Current Medications Medications (Trade) Dose Ordered Sig/Nikki Route Start Time Stop Time Status Last Admin Sodium Chloride 1,000 ml @ 1,000 mls/hr Q1H ONCE IV 10/04/24 09:30 10/04/24 10:29 DC 10/04/24 09:29 Morphine Sulfate 2 mg ONCE ONCE IV 10/04/24 09:30 10/04/24 09:31 DC 10/04/24 09:31 Ondansetron HCl (Zofran) 4 mg ONCE ONCE IV 10/04/24 09:30 10/04/24 09:31 DC 10/04/24 09:30 Patient alert. Complaining of abdominal pain. Vitals stable. Answering all questions. Establish intravenous access. Was given fluids. Was given morphine. Was given Zofran. Reviewed her history. Explained to the patient. Continue cardiac monitoring. Time of 1ST Reevaluation: 09:08 Reevaluation 1ST: Unchanged Patient Education/Counseling: Diagnosis, Treatment, Prognosis Family Education/Counseling: No Family Present Additional Information I reviewed the following notes from the pt's past medical encounters: 09/06/24- acute viral syndrome 06/30/24- acute abdominal pain The following tests were ordered, and results were reviewed by me: PHA and LAB Reviewed Results- LAB I reviewed and agreed with the following test results read by other providers: (xray, CT, US) I discussed treatments and results with medical personnel and patient Departure 1 Departure Time of Disposition: 09:19 Impression: Primary Impression: Acute abdominal pain Additional Impressions: Nausea and vomiting Qualified Codes: R11.2 - Nausea with vomiting, unspecified Gastroenteritis Disposition: ADMITTED INPATIENT Admit to: Med Surg Condition: Guarded Critical Care Note Critical Care Time?: Yes (45 min-critical care time only) Stability Stability form required: No I personally scribed for CISCO MONTANEZ MD ([email or web address]) on 10/04/24 at 09:09. Electronically submitted by Rubia Dasilva ([facility]). I personally scribed for CISCO MONTANEZ MD ([email or web address]) on 10/04/24 at 10:59. Electronically submitted by Rubia Dasilva ([facility]). I personally scribed for CISCO MONTANEZ MD ([email or web address]) on 10/04/24 at 11:51. Electronically submitted by Rubia Dasilva ([facility]). CISCO MONTANEZ MD Oct 04, 2024 09:09
[2024-10-04] MEDS: SODIUM CHLORIDE 0.9% 1,000 ML IV ONE ×2 (09:26→09:29)
[2024-10-04] MEDS: ONDANSETRON HCL 4 MG/2 ML VIAL IV ONE (09:30)
[2024-10-04] MEDS: MORPHINE SULFATE INJ 2 MG/ml SYRG IV ONE (09:31)
[2024-10-04 09:51] LABS: Basophils # (auto) 0 10 ^3/uL (0-0.2); Basophils % (auto) 0.2 % (0.0-2.0); Eosinophils # (auto) 0 10 ^3/uL (0-0.8); Eosinophils % (auto) 0.1 % (0.0-7.0); Hematocrit 36.5 % (36.0-46.0); Lymphocytes # (auto) 1.3 10 ^3/uL (0.4-5.4); Lymphocytes % (auto) 10.9 % (10.0-50.0); Mean Corpuscular Hemoglobin 28.8 pg (28.0-32.0); Mean Corpuscular Hgb Conc. 32.8 g/dL (32.0-36.0); Mean Corpuscular Volume 87.9 fL (80.0-100.0); Monocytes # (auto) 0.3 10 ^3/uL (0-1.3); Monocytes % (auto) 2.8 % (0.0-12.0); Platelet Count (auto) 329 10^3/uL (140-450); Red Blood Cells 4.15 10^6/uL (4.0-5.20); Red Cell Distribution Width 15.1 % (11.8-14.3); White Blood Cell 11.7 10^3/uL (4.4-10.8)
[2024-10-04 10:31] LABS: Anion Gap 15 (5-15); Carbon Dioxide 20 mmol/L (20-31); Chloride 104 mmol/L (98-107); Sodium 139 mmol/L (136-145)
[2024-10-04 10:32] LABS: Calcium 10.2 mg/dL (8.7-10.4)
[2024-10-04 10:37] LABS: BUN/Creatinine Ratio 11.7 (10.0-20.0); Blood Urea Nitrogen 9 mg/dL (9-23)
[2024-10-04 10:38] LABS: Glucose 161 mg/dL (74-106); Potassium 3.4 mmol/L (3.5-5.1)
[2024-10-04 12:15] LABS: Hepatitis B Surface Antigen Negative (Negative)
[2024-10-04 12:18] LABS: Urine Bacteria None Seen /hpf (None Seen)
[2024-10-04 12:36] LABS: Hepatitis A Ab IgM Negative; Hepatitis B Core IgM Negative (Negative)
[2024-10-04 12:37] LABS: Hepatitis C Antibody Negative (Negative)
[2024-10-04 13:06] LABS: Amphetamine Screen, Urine Neg (NEGATIVE); Barbiturate Scree,Urine Neg (NEGATIVE); Benzodiazephine Screen, Urine Neg (NEGATIVE); Cannabinoid Screen, Urine Pos (NEGATIVE); Cocaine Screen, Urine Neg (NEGATIVE); Opiate Scree,Urine Pos (NEGATIVE); Phencyclidine Screen, Urine Neg (NEGATIVE)
[2024-10-04 13:09] LABS: Urine Blood 3+ /uL (Negative); Urine Clarity Clear (Clear); Urine Mucus FEW (None Seen); Urine Protein, UAD 1+ (Negative); Urine Specific Gravity 1.046 (1.001-1.035); Urine Urobilinogen Normal (Negative); Urine WBC 1 /hpf (0 - 5); Urine pH 6.5 (5.0-9.0)
[2024-10-04 13:10] LABS: Urine Color Yellow (Yellow)
[2024-10-04] MEDS ORDERED: LORazepam 0.5 MG TAB PO PRN (13:30)
[2024-10-04] MEDS ORDERED: DOCUSATE SOD 100 MG CAP PO PRN (13:30)
[2024-10-04] MEDS ORDERED: ACETAMINOPHEN 325 MG TAB PO PRN (13:30)
[2024-10-04] MEDS ORDERED: HYDROcodone-ACET 5/325MG TAB PO PRN (13:30)
[2024-10-04] MEDS ORDERED: TEMAZEPAM 15 MG CAP PO PRN (13:30)
[2024-10-04] MEDS ORDERED: MAALOX PLUS or MAALOX 30 ML PO PRN (13:30)
--- NOTE | 2024-10-04 13:44 | DVHHP2 ---
History of Present Illness Reason for Visit: Stomach pain History of Present Illness 18 year old with no stated past medical history other than recurrent UTIs comes to the ED for evaluation of severe abdominal pain nausea vomiting and diarrhea for the past 2 days patient states that she feels the pain mostly in the right upper quadrant it does not radiate or go anywhere but it does have association with having pain and diarrhea patient denies any other acute distress was evaluated in the ED and recommended that the patient should be admitted for further evaluation she does have a history of both smoking marijuana and using other [id number] medications the plan as of now is to admit for further evaluation and management inpatient Review of Systems Constitutional: Yes: Weakness; No: Fever, Chills, Sweats, Malaise, Other Eyes: No: Pain, Vision change, Conjunctivae inflammation, Eyelid inflammation, Other, Redness ENT: No: Ear pain, Ear discharge, Nose pain, Nose discharge, Nose congestion, Mouth pain, Mouth swelling, Throat pain, Throat swelling, Other Respiratory: No: Cough, Dry, Shortness of breath, SOB with excertion, Wheezing, Hemoptysis, Pleuritic Pain, Sputum, Wheezing, Other Cardiovascular: No: Chest Pain, Palpitations, Orthopnea, Paroxysmal Noc. Dyspnea, Edema, Lt Headedness, Other Gastrointestinal: Nausea, Vomiting, Abdominal Pain; No: Diarrhea, Constipation, Melena, Hematochezia, Other Genitourinary: No Dysuria, No Frequency, No Incontinence, No Hematuria, No Retention, No Other Musculoskeletal: No: other, neck pain, shoulder pain, arm pain, back pain, hand pain, leg pain, foot pain Skin: No: Rash, Lesions, Jaundice, Bruising, Other Neurological: No: Weakness, Numbness, Incoordination, Change in speech, Confusion, Seizures, Other Allergies: Coded Allergies: NO KNOWN ALLERGIES (Unverified , 05/07/24) Exam Vital Signs Vital Signs Date Time Temp Pulse Resp B/P (MAP) Pulse Ox O2 Delivery O2 Flow Rate FiO2 10/04/24 09:31 84 16 125/63 10/04/24 09:12 96 Room Air 10/04/24 09:02 97.9 General Appearance: Alert, Oriented X3, Cooperative HEENT: Atraumatic, PERRLA Respiratory: Clear to auscultation, Normal air movement Cardiovascular: Regular rate, Normal S1 Abdominal: Normal bowel sounds, Soft, No tenderness Extremities: No clubbing, No cyanosis Skin: No rashes, No breakdown Neuro: Normal gait, Normal speech Psych/Mental Status: Mood NL Labs/Xrays Labs Test 10/04/24 11:15 10/04/24 11:04 10/04/24 09:25 Range/Units Urine Color Yellow Yellow Urine Clarity Clear Clear Urine pH 6.5 5.0-9.0 Urine Specific [place] 1.046 H 1.001-1.035 Urine Protein 1+ H Negative Urine Ketones 3+ H Negative Urine Blood 3+ H Negative /uL Urine Nitrite Negative Negative Urine Bilirubin Negative Negative Urine Urobilinogen Normal Negative mg/dL Urine Leukocyte Esterase Negative Negative /uL Urine RBC 603 0 - 4 /hpf Urine WBC 1 0 - 5 /hpf Urine Squamous Epithelial Cells Few <5 /hpf Urine Bacteria None seen None Seen /hpf Urine Mucus Few None Seen Urine Glucose Trace Normal mg/dL Urine Opiates Screen Pos NEGATIVE Urine Fentanyl Screen Neg NEGATIVE Urine Barbiturates Screen Neg NEGATIVE Urine Phencyclidine Screen Neg NEGATIVE Urine Amphetamines Screen Neg NEGATIVE Urine Benzodiazepines Screen Neg NEGATIVE Urine Cocaine Screen Neg NEGATIVE Urine Cannabinoids Screen Pos NEGATIVE Hepatitis A IgM Antibody Negative Hepatitis B Surface Antigen Negative Negative Hepatitis B Core IgM Antibody Negative Negative Hepatitis C Antibody Negative Negative HIV (1&2) Antibody Negative Negative White Blood Count 11.7 H 4.4-10.8 10^3/uL Red Blood Count 4.15 4.0-5.20 10^6/uL Hemoglobin 12.0 L 12.2-16.2 g/dL Hematocrit 36.5 36.0-46.0 % Mean Corpuscular Volume 87.9 80.0-100.0 fL Mean Corpuscular Hemoglobin 28.8 28.0-32.0 pg Mean Corpuscular Hemoglobin Concent 32.8 32.0-36.0 g/dL Red Cell Distribution Width 15.1 H 11.8-14.3 % Platelet Count 329 140-450 10^3/uL Mean Platelet Volume 8.8 6.9-10.8 fL Neutrophils (%) (Auto) 86.0 H 37.0-80.0 % Lymphocytes (%) (Auto) 10.9 10.0-50.0 % Monocytes (%) (Auto) 2.8 0.0-12.0 % Eosinophils (%) (Auto) 0.1 0.0-7.0 % Basophils (%) (Auto) 0.2 0.0-2.0 % Neutrophils # (Auto) 10.0 H 1.6-8.6 10 ^3/uL Lymphocytes # (Auto) 1.3 0.4-5.4 10 ^3/uL Monocytes # (Auto) 0.3 0-1.3 10 ^3/uL Eosinophils # (Auto) 0 0-0.8 10 ^3/uL Basophils # (Auto) 0 0-0.2 10 ^3/uL Nucleated Red Blood Cells 0.0 % Sodium Level 139 136-145 mmol/L Potassium Level 3.4 L 3.5-5.1 mmol/L Chloride Level 104 98-107 mmol/L Carbon Dioxide Level 20 20-31 mmol/L Anion Gap 15 5-15 Blood Urea Nitrogen 9 9-23 mg/dL Creatinine 0.77 0.550-1.02 mg/dL Glomerular Filtration Rate Calc 114 >90 mL/min BUN/Creatinine Ratio 11.7 10.0-20.0 Serum Glucose 161 H 74-106 mg/dL Calcium Level 10.2 8.7-10.4 mg/dL Assessment/Plan Assessment/Plan Admit to [facility] Suspected UTI Acute abdominal pain unknown etiology hepatitis panel is pending Possible infectious gastroenteritis IV hydration P.r.n. medications for pain management IV antibiotics for coverage Plan discussed with: Patient My Orders Orders - ROBB HENSLEY MD Procedure Category Date Status Time Test, Urine LAB 10/04/24 In Process 13:22 Metronidazole PHA 10/04/24 Logged 500mg/100ml (Flagyl 13:30 Pantoprazole PHA 10/04/24 Logged (Protonix) 13:30 Abdomen Complete US 10/04/24 Logged Sonogram 13:23 Admit ADMIT 10/04/24 Transmitted 13:23 Code Status CODE 10/04/24 Transmitted 13:23 Vital Signs VOLODYMYR 10/04/24 In Process 13:23 Review Orders With VOLODYMYR 10/04/24 In Process Adm. 13:23 Regular Diet DIET 10/04/24 Transmitted Lunch Sodium Chloride 0.9% PHA 10/04/24 Logged 13:30 Lorazepam Tablet PHA 10/04/24 Logged (Ativan Tablet) 13:30 Alum & Mag PHA 10/04/24 Logged Hydrox-Simethicone 13:[address] [facility] 10/04/24 Logged Capsule (Colace 13:30 Acetaminophen Tablet PHA 10/04/24 Logged (Tylenol Tablet) 13:30 Temazepam (Restoril) PHA 10/04/24 Logged 13:30 Notify Md Of Changes [facility] 10/04/24 In Process From Base 13:23 Advance Directive VOLODYMYR 10/04/24 In Process 13:23 Basic Metabolic Panel LAB 10/05/24 Verified 04:00 Complete Blood Count LAB 10/05/24 Verified 04:00 Patient Condition ORDERS 10/04/24 Transmitted 13:[address] [facility] 10/04/24 In Process 13:23 Hydrocodone-Acet [facility] 10/04/24 Logged 5/325mg Tab ([place] 13:[address] [facility] 10/04/24 Transmitted (Zofran) 13:30 Morphine 2mg Iv Q4hprn [facility] 10/04/24 Transmitted 13:30 Notify Md Of Changes [facility] 10/04/24 In Process From Base 13:23 Oxygen By Nasal RT 10/04/24 Transmitted Cannula 13:23 Problem List: (1) Vomiting (2) UTI (urinary tract infection) (3) Abdominal pain (4) Acute abdominal pain (5) Gastroenteritis (6) Nausea and vomiting Date of Service: Oct 04, 2024 Billing Provider: ROBB HENSLEY MD Common Visit Codes: 72750-[id number] INP/OBS CARE (HIGH) ROBB HENSLEY MD Oct 04, 2024 13:44
--- NOTE | 2024-10-04 14:22 | DVH ---
_ Procedure: US ABDOMEN COMPLETE SONOGRAM Study Date and Requested Time: 10/04/2024 02:01 PM History: focus ruq pain evaluation Comparison: CT abdomen and pelvis 06/30/2024 Technique: Multiple high resolution soriaon-scale images obtained of the abdomen with color Doppler for evaluation of the abdominal aorta, inferior vena cava, and portal vein as indicated. Findings: Liver normal in size, measuring 13.7 cm in length, with homogenous echotexture and normal contours. N o evidence of focal hepatic lesions, intrahepatic or extrahepatic ductal dilatation. Common bile duct measures 0.3 cm in diameter. Gallbladder unremarkable with no evidence of abnormal wall thickening, gallstones, biliary sludge, or pericholecystic fluid. Negative sonographic Oliver's sign. Pancreas is unremarkable. Spleen normal in size, measuring 9.5 cm in length, with homogenous echotexture and normal contours. Right kidney measures 11 cm in length. Left kidney measures 11.3 cm in length. Normal renal contours, echotexture, and cortical thickness bilaterally. No evidence of hydronephrosis, calculi, cystic or s olid renal lesions. Partially visualized aorta and inferior vena cava are unremarkable. No evidence of ascites. Impression: Unremarkable sonographic study of the abdomen.
[2024-10-04] MEDS: metroNIDAZOLE 500MG/100ML 100 ML IV SCH (16:46)
[2024-10-04] MEDS: PANTOPRAZOLE 40 MG/10 ML VIAL INJ IV SCH (16:47)
[2024-10-04 17:30] VITALS: BP 121/78; PULSE 95; RESP 18; TEMP 98.5; O2SAT 98
[2024-10-04 18:00] VITALS: BP 121/78; PULSE 95; RESP 18; TEMP 98.5; O2SAT 98
[2024-10-04] MEDS: SODIUM CHLORIDE 0.9% 1,000 ML IV SCH (19:37)
[2024-10-04] MEDS: ONDANSETRON HCL 4 MG/2 ML VIAL IV PRN (20:21)
[2024-10-04] MEDS: MORPHINE SULFATE INJ 2 MG/ml SYRG IV PRN (20:23)
[2024-10-04 21:00] VITALS: BP 109/67; PULSE 72; RESP 20; TEMP 98.2; O2SAT 98
[2024-10-05 01:00] VITALS: BP 94/54; PULSE 74; RESP 20; TEMP 98.3; O2SAT 98
[2024-10-05 05:00] VITALS: BP 127/86; PULSE 101; RESP 20; TEMP 97.6; O2SAT 99
[2024-10-05 07:53] LABS: Chloride 106 mmol/L (98-107); Sodium 138 mmol/L (136-145)
[2024-10-05 07:54] LABS: Anion Gap 9 (5-15); Carbon Dioxide 23 mmol/L (20-31)
[2024-10-05 07:59] LABS: BUN/Creatinine Ratio 10.3 (10.0-20.0); Glucose 106 mg/dL (74-106)
[2024-10-05 08:01] LABS: Blood Urea Nitrogen 7 mg/dL (9-23); Potassium 3.2 mmol/L (3.5-5.1)
[2024-10-05 08:09] LABS: Basophils # (auto) 0 10 ^3/uL (0-0.2); Basophils % (auto) 0.4 % (0.0-2.0); Eosinophils # (auto) 0 10 ^3/uL (0-0.8); Hematocrit 33.4 % (36.0-46.0); Lymphocytes # (auto) 0.7 10 ^3/uL (0.4-5.4); Lymphocytes % (auto) 8.4 % (10.0-50.0); Mean Corpuscular Hgb Conc. 32.9 g/dL (32.0-36.0); Mean Corpuscular Volume 88.4 fL (80.0-100.0); Monocytes # (auto) 0.4 10 ^3/uL (0-1.3); Monocytes % (auto) 4.8 % (0.0-12.0); Neutrophils # (auto) 7.5 10 ^3/uL (1.6-8.6); Neutrophils % (auto) 86.4 % (37.0-80.0); Platelet Count (auto) 281 10^3/uL (140-450); Red Blood Cells 3.78 10^6/uL (4.0-5.20); White Blood Cell 8.7 10^3/uL (4.4-10.8)
[2024-10-05] MEDS ORDERED: CEPH500C PO (08:24)
[2024-10-05] MEDS ORDERED: ONDA-188 PO (08:24)
[2024-10-05 09:00] VITALS: BP 120/86; PULSE 67; RESP 16; TEMP 98.3; O2SAT 99
[2024-10-05] MEDS: POTASSIUM EFFERVESENT TAB 25 MEQ PO ONE (10:01)
[2024-10-05] MEDS: cefTRIAXone 1GM/50ML D5W 50 ML IV ONE (10:02)
[2024-10-05 11:11] LABS: Alanine Aminotransferase 14 U/L (7-40); Albumin 4.6 g/dL (3.2-4.8); Anion Gap 11 (5-15); Aspartate Aminotransferase 19 U/L (13-40); BUN/Creatinine Ratio 8.5 (10.0-20.0); Blood Alcohol < 3.0 mg/dL (<10); Calcium 9.4 mg/dL (8.7-10.4); Carbon Dioxide 21 mmol/L (20-31); Chloride 105 mmol/L (98-107); Glucose 106 mg/dL (74-106); Magnesium 2.1 mg/dL (1.6-2.6); Sodium 137 mmol/L (136-145); Total Protein 7.6 g/dL (5.7-8.2)
[2024-10-05 11:12] LABS: Blood Urea Nitrogen 6 mg/dL (9-23); Potassium 3.3 mmol/L (3.5-5.1)
[2024-10-05 11:13] LABS: Alkaline Phosphatase 126 U/L (46-116)
[2024-10-05 11:26] LABS: Bilirubin, Total 0.5 mg/dL (0.2-1.0)
[2024-10-05 13:00] VITALS: BP 127/79; PULSE 88; RESP 16; TEMP 97.9; O2SAT 99
[2024-10-05 13:47] VITALS: BP 120/86; PULSE 67; RESP 16; TEMP 98.3; O2SAT 99
--- NOTE | 2024-10-05 14:52 | DVHDSRES ---
Discharge Summary Date of Admission Resident Creating Document: DANIS CLARK RESIDENT Oct 04, 2024 at 13:23 Date of Discharge: Oct 05, 2024 Admitting Diagnosis # Likely Acute gastroenteritis # Leukocytosis likely reactive # Probable UTI Labs/Diagnostic Data: Laboratory Results Test 10/05/24 10:29 10/05/24 07:12 10/04/24 11:15 10/04/24 11:04 Sodium Level 137 mmol/L (136-145) Potassium Level 3.3 mmol/L (3.5-5.1) Chloride Level 105 mmol/L (98-107) Carbon Dioxide Level 21 mmol/L (20-31) Anion Gap 11 (5-15) Blood Urea Nitrogen 6 mg/dL (9-23) Creatinine 0.71 mg/dL (0.550-1.02) Glomerular Filtration Rate Calc 126 mL/min (>90) BUN/Creatinine Ratio 8.5 (10.0-20.0) Serum Glucose 106 mg/dL (74-106) Lactic Acid Level 1.2 mmol/L (0.4-2.0) Calcium Level 9.4 mg/dL (8.7-10.4) Magnesium Level 2.1 mg/dL (1.6-2.6) Total Bilirubin 0.5 mg/dL (0.2-1.0) Aspartate Amino Transferase (AST) 19 U/L (13-40) Alanine Aminotransferase (ALT) 14 U/L (7-40) Alkaline Phosphatase 126 U/L (46-116) Total Protein 7.6 g/dL (5.7-8.2) Albumin 4.6 g/dL (3.2-4.8) Vitamin B12 Level 482 pg/mL (211-911) Vitamin D 25-Hydroxy 7.2 ng/mL (30.0-100) Thyroid Stimulating Hormone (TSH) 0.24 uIU/mL (0.55-4.78) Plasma/Serum Blood Alcohol < 3.0 mg/dL (<10) White Blood Count 8.7 10^3/uL (4.4-10.8) Red Blood Count 3.78 10^6/uL (4.0-5.20) Hemoglobin 11.0 g/dL (12.2-16.2) Hematocrit 33.4 % (36.0-46.0) Mean Corpuscular Volume 88.4 fL (80.0-100.0) Mean Corpuscular Hemoglobin 29.0 pg (28.0-32.0) Mean Corpuscular Hemoglobin Concent 32.9 g/dL (32.0-36.0) Red Cell Distribution Width 15.0 % (11.8-14.3) Platelet Count 281 10^3/uL (140-450) Mean Platelet Volume 8.9 fL (6.9-10.8) Neutrophils (%) (Auto) 86.4 % (37.0-80.0) Lymphocytes (%) (Auto) 8.4 % (10.0-50.0) Monocytes (%) (Auto) 4.8 % (0.0-12.0) Eosinophils (%) (Auto) 0.0 % (0.0-7.0) Basophils (%) (Auto) 0.4 % (0.0-2.0) Neutrophils # (Auto) 7.5 10 ^3/uL (1.6-8.6) Lymphocytes # (Auto) 0.7 10 ^3/uL (0.4-5.4) Monocytes # (Auto) 0.4 10 ^3/uL (0-1.3) Eosinophils # (Auto) 0 10 ^3/uL (0-0.8) Basophils # (Auto) 0 10 ^3/uL (0-0.2) Nucleated Red Blood Cells 0.0 % Urine Color Yellow (Yellow) Urine Clarity Clear (Clear) Urine pH 6.5 (5.0-9.0) Urine Specific [place] 1.046 (1.001-1.035) Urine Protein 1+ (Negative) Urine Ketones 3+ (Negative) Urine Blood 3+ /uL (Negative) Urine Nitrite Negative (Negative) Urine Bilirubin Negative (Negative) Urine Urobilinogen Normal mg/dL (Negative) Urine Leukocyte Esterase Negative /uL (Negative) Urine RBC 603 /hpf (0 - 4) Urine WBC 1 /hpf (0 - 5) Urine Squamous Epithelial Cells Few /hpf (<5) Urine Bacteria None seen /hpf (None Seen) Urine Mucus Few (None Seen) Urine Glucose Trace mg/dL (Normal) Urine Test Negative (Negative) Urine Opiates Screen Pos (NEGATIVE) Urine Fentanyl Screen Neg (NEGATIVE) Urine Barbiturates Screen Neg (NEGATIVE) Urine Phencyclidine Screen Neg (NEGATIVE) Urine Amphetamines Screen Neg (NEGATIVE) Urine Benzodiazepines Screen Neg (NEGATIVE) Urine Cocaine Screen Neg (NEGATIVE) Urine Cannabinoids Screen Pos (NEGATIVE) Hepatitis A IgM Antibody Negative Hepatitis B Surface Antigen Negative (Negative) Hepatitis B Core IgM Antibody Negative (Negative) Hepatitis C Antibody Negative (Negative) HIV (1&2) Antibody Negative (Negative) Other Laboratory Tests 10/05/24 10:29 10/05/24 07:12 Brief Hx & Hospital Course: Mariely Gaffney is a 18-year-old female with no significant past medical or surgical history who presented to the ED with chief complaints of abdominal pain, vomiting, and diarrhea for three days prior to admission. The patient reported that she started having menses and took Midol for pain, which was followed by severe nausea, vomiting, and non-bloody diarrhea. She visited [facility], where she was diagnosed with a UTI and received Keflex, but her symptoms did not resolve, prompting her visit to the ED. On assessment, the patient denied fever, chest pain, palpitations, shortness of breath, diaphoresis, and other acute associated symptoms. She reported being sexually active with one male partner and using protection. Patient diagnosed as probable acute gastroenteritis with reactive leukocytosis, probable UTI. She is received intravenous fluids (IVF), Flagyl, and Rocephin. A stool culture was ordered, and an abdominal ultrasound showed no acute changes. The patient was seen and examined at the bedside, reporting improvement in her symptoms since admission and no new complaints. hypokalemia, which is being repleted. Supportive treatment and monitored lab. patient condition was improved, hemodynamically stable and in condition to be discharged home with optimal medical treatment. Patient will advised about healthy lifestyle habits including diet, exercise to follow up with PCP General Appearance: Alert, Oriented X3, Cooperative, Not in acute distress HEENT: Atraumatic, Mucous membranes moist/pink Respiratory: Clear to auscultation, Normal air movement, No added sounds Cardiovascular: Regular rate, Normal S1, Normal S2, No murmurs Abdominal: Generalized abdominal tenderness along with suprapubic tenderness Extremities: No edema, Normal pulses, No tenderness/swelling Skin: No Significant rash Neuro: Normal speech, sensorimotor deficits none Psych/Mental Status: Mental status NL, Mood NL Nurse was there as sharperone during examination Operations or Procedures Abdominal ultrasound showed no acute sonographic changes. Condition at Discharge: Stable Final Diagnosis/Problems List # Likely Acute gastroenteritis # Leukocytosis likely reactive # Probable UTI # Hypokalemia # Vit D deficiency Discharge Disposition: Home Discharge Instruct/Medications Diet: See Comment Diet comment: Gradually advance diet as tolerated Activity: No Restrictions, As Tolerated Follow Up/Referral: pcp Medications: per emr Discharge Statement: "Patient was advised to return to the ER or call 911 if any headaches, dizziness, shortness of breath, chest pain, abdominal pain, bleeding, fevers, or worsening of medical condition. Patient was counseled about treatment plan, medications, possible side effects, patientverbalized understanding. All questions were answered to the best of my ability. This discharge took greater then 30 minutes in planning, reviewing documentation, counseling the patient, and discussing with other team members." ASSESSMENT ASSESSMENT Assessment Probable gastroenteritis DANIS CLARK RESIDENT Oct 05, 2024 14:52
[2024-10-05] MEDS ORDERED: ERGOCALCIFEROL 50,000 UNIT(1.25MG) CAP PO SCH (15:00)
[2024-10-05] MEDS ORDERED: ERGO1CAP23 PO (15:56)
[2024-10-06] MEDS ORDERED: cefTRIAXone 1GM/50ML D5W 50 ML IV SCH (09:00)
== END 2024-10-05 14:38 | disposition home or self-care (01) | DRG 690 ==
LOC: ER 08:55 → OVERFLOW 13:23 → WEST WING 17:06
PROVIDERS: ADMIT Internal Medicine Geriatric Medicine; ATTEND Emergency Medicine
DX: N39.0 Urinary tract infection, site not specified (principal); K52.9 Noninfective gastroenteritis and colitis, unspecified; D72.829 Elevated white blood cell count, unspecified; F12.90 Cannabis use, unspecified, uncomplicated; E87.6 Hypokalemia; E55.9 Vitamin D deficiency, unspecified; Z87.440 Personal history of urinary (tract) infections; Z83.3 Family history of diabetes mellitus
CPT/HCPCS: 36415; 76700; 80048; 80053; 80074; 80307; 80320; 81001; 81025; 82306; 82607; 83605; 83735; 84443; 85025; 86703; 99291; G0378; J2405; J2470; J3490

== ENCOUNTER 2025-04-19 10:13 | Emergency (ER) | payer BC ==
[~2025-04-19] VITALS: Ht 154.9 cm; Wt 75.1 kg
[~2025-04-19 10:13] MED LIST changes: +CEPH500C PO; -CIPR-173 PO; +ERGO1CAP23 PO; -METR-344 PO; +ONDA-188 PO; -PANT40TA2 PO; -ZOFR4T PO
--- NOTE | 2025-04-19 10:35 | ECG ---
[facility] Test Date: 2025-04-19 Test Time: 10:34:28 Pat Name: SONY MARIE Department: ER Room: Gender: F Guest Services Lead: ELISEO : 2005 Requested By: CHARLES VILLALBA Order Number: [id number] Reading MD: Manny Medina Measurements Intervals [place] Rate: 94 P: 67 MN: 117 QRS: 70 QRSD: 74 T: 46 QT: 351 QTc: 439 Interpretive Statements Sinus rhythm Borderline short MN interval Electronically Signed On 04-20-2025 20:12:19 PDT by Manny Medina Please click the below link to view image of tracing.
--- NOTE | 2025-04-19 10:36 | ED.PDOC ---
GI ASSESSMENT HPI Comments Ronda: HPI: Glo Historian. 19y F who presents to the ED for chief complaint of nausea, vomiting and diarrhea. - pt states she has been having nausea, vomiting and diarrhea for the past 3 days - pt states she has started to mid epigastric chest pressure and came to the ED for evaluation - pt states she has been having 15x episodes of vomiting daily in this time period describing the vomiting as yellow and greenish in color - pt has been having diarrhea with 10x episodes daily for the past 3 days describing the diarrhea as brownish in color - pt denies any sick contacts or changes to diet - pt otherwise states she did visit [facility] 1x month prior - pt has been to multiple times for similar symptoms and hospitalized with the following discharge summary: - Mariely Marie is a 18-year-old female with no significant past medical or surgical history who presented to the ED with chief complaints of abdominal pain, vomiting, and diarrhea for three days prior to admission. The patient reported that she started having menses and took Midol for pain, which was f ollowed by severe nausea, vomiting, and non-bloody diarrhea. She visited [facility], where she was diagnosed with a UTI and received Keflex, but her symptoms did not resolve, prompting her visit to the ED. On assessment, the patient denied fever, chest pain, palpitations, shortness of breath, diaphoresis, and other acute associated symptoms. She reported being sexually active with one male partner and using protection. Patient diagnosed as probable acute gastroenteritis with reactive leukocytosis, probable UTI. She is received intravenous fluids (IVF), Flagyl, and Rocephin. A stool culture was ordered, and an abdominal ultrasound showed no acute changes. The patient was seen and examined at the bedside, reporting improvement in her symptoms since admission and no new complaints. hypokalemia, which is being repleted. Supportive treatment and monitored lab. patient condition was improved, hemodynamically stable and in condition to be discharged home with optimal medical treatment. Patient will advised about healthy lifestyle habits including diet, exercise to follow up with PCP. Past Medical history: denies Past surgical history:denies allergies: denies medications: denies social history: denies tobacco use, denies ETOH use, endorses drug use (marijuana) REVIEW OF SYSTEMS: CONSTITUTIONAL: Denies acute: fever, diaphoresis, chills, generalized weakness. HEAD: Denies acute: headache, photophobia Eyes: Denies acute: Double vision, vision loss, eye pain, eye discharge. EARS: Denies acute: tinnitus, hearing loss, ear discharge, ear pain, THROAT: Denies acute: sore throat, swelling, difficulty swallowing , pain with swallowing, change in voice. NECK: Denies acute: neck pain, neck swelling, stiff neck. HEART: Denies acute : palpitations, LUNGS: Denies acute: SOB, wheezing, cough, hemoptysis ABDOMEN: Denies acute: melena , hematemesis, hematochezia SKIN: Denies acute: rash, redness, lesions, itchiness. EXTREMITIES: Denies acute: calf pain, numbness, tingling, weakness, denies pain in extremity. Denies acute: Low back pain. Neuro: Denies acute: focal neurological deficit, motor or sensory focal neurological deficit, tremors, seizure like activity, confusion, dizziness, change in mental status, loss of bowel or bladder function, cauda equina like symptoms. : Denies acute: dysuria, hematuria, flank pain, increase in urinary frequency. PSYCH: Denies acute: hallucination, suicidal ideation, homicidal ideation. FEMALE: Denies acute: abnormal vaginal bleeding, foul odor, unusual discharge. PHYSICAL EXAM: General: -----mild---acute distress, awake and alert. Head: normocephalic, atraumatic. Neck: supple, trachea is midline, no swelling. Throat: Normal phonation. Eyes:, no erythema, no purulent discharge, no proptosis, no icterus. Heart: regular rate, regular rhythm, no significant murmur appreciated. Lungs: no apparent respiratory distress, Able to speak in full sentences. No wheezing, no rhonchi, no crackles. No stridors Clear to auscultation bilaterally. Abdomen: non tender to palpation, non distended, soft, no guarding, no rebound, + bowel sounds. Neuro: Awake, Alert, oriented to name, self, situation, follows commands GCS=15. Speech is normal. Skin: no petechia, no purpura, no cyanosis, non-pale, not jaundice. Lower extremities: --no - Pitting edema no deformity, no focal swelling, no calf TTP. Makes eye contact. moves all four extremities. Face: no apparent facial droop. Ambulating in the ED independently. ED COURSE: DISCLAIMER: This medical document was created using an electronic medical record system with voice recognition software and computerized dictation system. Although this document has been carefully reviewed, there might still be some phonetic and typographical errors. Occasional wrong-word or "sound-alike" substitutions may have occurred due to the inherent limitations of voice recognition software. These areas are purely typographical due to imperfections of the software programs and do not reflect any compromise in the patient's medical care. Please read the chart carefully and recognize, using context, where these substitutions have occurred. Time Seen by MD: 10:18 Primary Care Provider: UNKNOWN Reviewed Notes: Nurses Notes, Allergies Allergies: Coded Allergies: NO KNOWN ALLERGIES (Unverified , 05/07/24) Home Meds Active Scripts Ondansetron Odt 4MG Tab (ZOFRAN PO) 4 Mg Tb, 4 MG PO Q8HPRN PRN for 3 Days, #9 TAB ODT TAB-DISSOLVE IN MOUTH, THEN SWALLOW Prov:CHARLES VILLALBA DO 04/19/25 Ergocalciferol (VITAMIN D 12137 UNIT) 50,[address] [place], [address] UNIT PO QWEEKLY for 30 Days, #10 CAP Prov:YESSICA AWAD RESIDENT 10/05/24 Reported Medications Ondansetron HCl (Ondansetron Hydrochloride) 4 Mg Tab, 1 TAB PO DAILY 10/05/24 Cephalexin Monohydrate (Cephalexin) 500 Mg Cap, 1 CAP PO QID 10/05/24 Information Source: Patient Mode of Arrival: Ambulatory Past Medical History PAST MEDICAL HISTORY: UTI'S Surgical History: Denies all surgeries DIRECTOR PAID MEDIA History: No Pertinent DIRECTOR PAID MEDIA History Family History Family History: Family hx of DM Social History Smoker: Non-Smoker Alcohol: Occasionally Drugs: Marijuana Lives In: Home Was a procedure done? Was a procedure done?: No GI differential Dx Differential Diagnosis: Gastritis/PUD, Gastroenteritis, Hepatitis, Food Poisoning, Bacterial, Parasitic, Viral, Other (DDX include Diverticulitis, colitis, gastroenteritis, acute abdomen, SBO, enteritis, constipation, volvulus, appendicitis, Gallbladder disease, choledocolithiasis, ascending cholangitis, pancreatitis, intraAbdominal mass/neoplasm, hepatitis, UTI, pylonephritis, kidney stone, aneurysm, dissection, Inflammatory bowel disease, gastroparesis, ischemic bowel, ovarian torsion, ovarian cyst/mass, tubo-ovarian abscess, , ectopic , PID, STD.) X-Ray, Labs, Meds, VS Vital Signs Date Time Temp Pulse Resp B/P (MAP) Pulse Ox O2 Delivery O2 Flow Rate FiO2 04/19/25 14:05 98.6 96 16 107/68 (81) 98 98.6 04/19/25 11:06 84 19 98 Room Air* 0 21 04/19/25 10:39 86 16 100 Room Air 04/19/25 10:39 98.7 86 16 117/72 (87) 100 98.7 04/19/25 10:34 94 04/19/25 10:21 98.0 109 14 109/62 (78) 97 98.0 Lab Test 04/19/25 12:18 04/19/25 10:55 Range/Units Urine Color Light-yellow Yellow Urine Clarity Turbid H Clear Urine pH 7.5 5.0-9.0 Urine Specific Cope 1.025 1.001-1.035 Urine Protein Trace H Negative Urine Ketones 1+ H Negative Urine Blood 2+ H Negative /uL Urine Nitrite Negative Negative Urine Bilirubin Negative Negative Urine Urobilinogen Normal Negative mg/dL Urine Leukocyte Esterase Negative Negative /uL Urine RBC 171 0 - 4 /hpf Urine Microscopic WBC 3 0-5 /HPF Urine Squamous Epithelial Cells Few <5 /hpf Urine Bacteria None seen None Seen /hpf Urine Mucus Few None Seen Urine Glucose Normal Normal mg/dL Urine Test Negative Negative Urine Opiates Screen Neg NEGATIVE Urine Fentanyl Screen Neg NEGATIVE Urine Barbiturates Screen Neg NEGATIVE Urine Phencyclidine Screen Neg NEGATIVE Urine Amphetamines Screen Neg NEGATIVE Urine Benzodiazepines Screen Neg NEGATIVE Urine Cocaine Screen Neg NEGATIVE Urine Cannabinoids Screen Pos NEGATIVE White Blood Count 11.2 H 4.4-10.8 10^3/uL Red Blood Count 4.55 4.0-5.20 10^6/uL Hemoglobin 12.9 12.2-16.2 g/dL Hematocrit 39.4 36.0-46.0 % Mean Corpuscular Volume 86.6 80.0-100.0 fL Mean Corpuscular Hemoglobin 28.4 28.0-32.0 pg Mean Corpuscular Hemoglobin Concent 32.8 32.0-36.0 g/dL Red Cell Distribution Width 15.2 H 11.8-14.3 % Platelet Count 403 140-450 10^3/uL Mean Platelet Volume 7.9 6.9-10.8 fL Neutrophils (%) (Auto) 87.8 H 37.0-80.0 % Lymphocytes (%) (Auto) 8.6 L 10.0-50.0 % Monocytes (%) (Auto) 3.2 0.0-12.0 % Eosinophils (%) (Auto) 0.0 0.0-7.0 % Basophils (%) (Auto) 0.4 0.0-2.0 % Neutrophils # (Auto) 9.9 H 1.6-8.6 10 ^3/uL Lymphocytes # (Auto) 1.0 0.4-5.4 10 ^3/uL Monocytes # (Auto) 0.4 0-1.3 10 ^3/uL Eosinophils # (Auto) 0 0-0.8 10 ^3/uL Basophils # (Auto) 0 0-0.2 10 ^3/uL Nucleated Red Blood Cells 0.0 % Sodium Level 139 136-145 mmol/L Potassium Level 3.2 L 3.5-5.1 mmol/L Chloride Level 104 98-107 mmol/L Carbon Dioxide Level 24 20-31 mmol/L Anion Gap 11 5-15 Blood Urea Nitrogen 12 9-23 mg/dL Creatinine 0.71 0.550-1.02 mg/dL Glomerular Filtration Rate Calc 125 >90 mL/min BUN/Creatinine Ratio 16.9 10.0-20.0 Serum Glucose 109 H 74-106 mg/dL Lactic Acid Level 1.7 0.4-2.0 mmol/L Calcium Level 9.0 8.7-10.4 mg/dL Total Bilirubin 0.4 0.2-1.0 mg/dL Aspartate Amino Transferase (AST) 22 <34 U/L Alanine Aminotransferase (ALT) 22 7-40 U/L Alkaline Phosphatase 161 H 46-116 U/L Total Protein 8.3 H 5.7-8.2 g/dL Albumin 4.9 H 3.2-4.8 g/dL Lipase 27 12-53 U/L [facility] [id number] [facility] [address] Ph: [phone] DIAGNOSTIC IMAGING Diagnostic Imaging Report : [id number] Signed PATIENT: CHARLETTE MARIECCT: [id number] UNIT: [id number] : 2005 LOC: ER ROOM / BED: / AGE / SEX: 19 / F ADM STATUS: REG ER SERVICE 1024 ORDERING PHYSICIAN: CHARLES VILLALBA DO PROCEDURE(s): ABPL - CT AB PEL WO CON-NO ORAL OR IV REASON: n/v/d epig pain ORDER NUMBER(s): [id number], ACCESSION NUMBER(s): [id number] Exam: CT CT AB PEL WO CON-NO ORAL OR IV History: n/v/d epig pain Comparison Study: CT CT AB PEL WO CON-NO ORAL OR IV on DOS: 06/30/24 Technique: Multidetector spiral CT of the abdomen and pelvis was performed from lung bases to pubic symphysis. Imaging was performed without IV contrast. Axial, coronal and sagittal multiplanar reformats were obtained from the axial data set by the technologist. Radiation dose : Abdomen/Pelvis: CTDIvol 10 mGy, DLP 543 mGy*cm. Findings: Evaluation of solid organs is limited due to lack of intravenous contrast use. Lung Bases: No acute or significant lung base finding. Normal heart size. No pleural or pericardial effusion. Liver: The liver is normal in size. No focal lesions. Gallbladder and biliary Tree: Unremarkable Spleen: Unremarkable Pancreas: The pancreas is grossly normal in appearance. Adrenal Glands: Unremarkable Kidneys: Kidneys are grossly normal without calculi or hydronephrosis. Bladder: Grossly unremarkable for degree of distention. Bowel: The stomach is grossly normal in appearance. Small bowel and colon are normal in caliber and distribution. Normal appendix is visualized in the right lower quadrant without findings of appendicitis. Ascites: Absent Lymphadenopathy: No mesenteric, retroperitoneal or periportal lymphadenopathy. Abdominal wall and Mesentery: Unremarkable. Vasculature: The visualized abdominal aorta is normal in size and caliber. Evaluation of abdominal and pelvic vessels is limited due to lack of intravenous contrast. Pelvic Organs: Unremarkable Musculoskeletal: No aggressive focal bony lesions, acute fractures or dislocation. IMPRESSION: 1. No acute abdominal or pelvic findings. Radiation optimization: All CT scans at this facility use at least one of these dose optimization techniques: Automated exposure control mA and/or kV adjustment per patient size (includes targeted exams where dose is matched to clinical indication) or iterative reconstruction. HS:Y ATED BY: SKINNY FRIED MD DICTATED DATE/TIME: 04/19/25 1347 SIGNED BY: SKINNY FRIED MD SIGNED DATE/TIME: 04/19/25 134 CC: Time of 1ST Reevaluation: 00:00 Reevaluation 1ST: N/A Patient Education/Counseling: Diagnosis, Treatment Family Education/Counseling: No Family Present Departure 1 Departure Time of Disposition: 14:51 Impression: Primary Impression: Nausea vomiting and diarrhea Disposition: 01 HOME / SELF CARE / HOMELESS Condition: Stable Additional Instructions: Additional instructions: You MUST follow-up with your primary care/family doctor in 1 to 2 days. If you are unable to see your primary care/family doctor, please return to our emergency room for re-assessment and re-evaluation in 1 to 2 days. Return to the emergency room here in our facility or to the nearest ER [facility] if your symptoms change or worsen. CONSULTATIONS: you MUST Follow-up for consultation as soon as possible with: -gastroenterology in 1-2 days. Please call for appointment. You MUST call the consultants office yourself to make an appointment. You may need to arrange that through your insurance and/or your primary/family doctor. If you are unable to see the applications development consultant in 1 to 2 days, you must return to our emergency room (or any other ER of your choice) for re-assessment and re- evaluation. Adequate fluid hydration. Avoid fatty greasy spicy food. Avoid caffeinated products. Avoid NSAIDs. Avoid marijuana. Below is a copy of your radiological report for follow up: [place] [address] Ph: [phone] DIAGNOSTIC IMAGING Diagnostic Imaging Report : [id number] Signed PATIENT: MARIELY MARIE ACCT: [id number] UNIT: [id number] : 2005 LOC: ER ROOM / BED: / AGE / SEX: 19 / F ADM STATUS: REG ER SERVICE 1024 ORDERING PHYSICIAN: CHARLES VILLALBA DO PROCEDURE(s): ABPL - CT AB PEL WO CON-NO ORAL OR IV REASON: n/v/d epig pain ORDER NUMBER(s): [id number], ACCESSION NUMBER(s): [id number] Exam: CT CT AB PEL WO CON-NO ORAL OR IV History: n/v/d epig pain Comparison Study: CT CT AB PEL WO CON-NO ORAL OR IV on DOS: 06/30/24 Technique: Multidetector spiral CT of the abdomen and pelvis was performed from lung bases to pubic symphysis. Imaging was performed without IV contrast. Axial, coronal and sagittal multiplanar reformats were obtained from the axial data set by the technologist. Radiation dose : Abdomen/Pelvis: CTDIvol 10 mGy, DLP 543 mGy*cm. Findings: Evaluation of solid organs is limited due to lack of intravenous contrast use. Lung Bases: No acute or significant lung base finding. Normal heart size. No pl eural or pericardial effusion. Liver: The liver is normal in size. No focal lesions. Gallbladder and biliary Tree: Unremarkable Spleen: Unremarkable Pancreas: The pancreas is grossly normal in appearance. Adrenal Glands: Unremarkable Kidneys: Kidneys are grossly normal without calculi or hydronephrosis. Bladder: Grossly unremarkable for degree of distention. Bowel: The stomach is grossly normal in appearance. Small bowel and colon are normal in caliber and distribution. Normal appendix is visualized in the right lower quadrant without findings of appendicitis. Ascites: Absent Lymphadenopathy: No mesenteric, retroperitoneal or periportal lymphadenopathy. Abdominal wall and Mesentery: Unremarkable. Vasculature: The visualized abdominal aorta is normal in size and caliber. Evaluation of abdominal and pelvic vessels is limited due to lack of intravenous contrast. Pelvic Organs: Unremarkable Musculoskeletal: No aggressive focal bony lesions, acute fractures or dislocation. IMPRESSION: 1. No acute abdominal or pelvic findings. Radiation optimization: All CT scans at this facility use at least one of these dose optimization techniques: Automated exposure control mA and/or kV adjustment per patient size (includes targeted exams where dose is matched to clinical indication) or iterative reconstruction. HS:Y ATED BY: SKINNY FRIED MD DICTATED DATE/TIME: 04/19/25 1347 SIGNED BY: SKINNY FRIED MD SIGNED DATE/TIME: 04/19/25 1347 CC: e-Prescriptions Ondansetron Odt 4MG Tab (ZOFRAN PO) 4 Mg Tb 4 MG PO Q8HPRN PRN for 3 Days, #9 TAB ODT TAB-DISSOLVE IN MOUTH, THEN SWALLOW Prov: CHARLES VILLALBA DO 04/19/25 Discharged With: Self Critical Care Note Critical Care Time?: No Heart Score Heart Score: Heart Score Response (Comments) Value History Slightly Suspicious 0 EKG Normal 0 Age <45 0 Risk Factors No known risk factors 0 Troponin Normal limit 0 Total 0 I personally scribed for CHARLES VILLALBA DO ([email or web address]) on 04/19/25 at 10:36. Electronically submitted by Christian Abernathy ([email or web address] I personally scribed for CHARLES VILLALBA DO ([email or web address]) on 04/19/25 at 10:51. Electronically submitted by Christian Abernathy ([email or web address] I personally scribed for CHARLES VILLALBA DO ([email or web address]) on 04/19/25 at 14:53. Electronically submitted by Christian Abernathy ([email or web address]). I personally scribed for CHARLES VILLALBA DO ([email or web address]) on 04/19/25 at 21:41. Electronically submitted by Christian Abernathy ([email or web address]). CHARLES VILLALBA DO Apr 19, 2025 10:36
[2025-04-19] MEDS: SODIUM CHLORIDE 0.9% 1,000 ML IV ONE (10:54)
[2025-04-19] MEDS: ONDANSETRON HCL 4 MG/2 ML VIAL IV ONE (10:57)
[2025-04-19 11:06] VITALS: PULSE 84; RESP 19; O2SAT 98
[2025-04-19 11:09] LABS: Basophils # (auto) 0 10 ^3/uL (0-0.2); Basophils % (auto) 0.4 % (0.0-2.0); Eosinophils # (auto) 0 10 ^3/uL (0-0.8); Hematocrit 39.4 % (36.0-46.0); Hemoglobin 12.9 g/dL (12.2-16.2); Lymphocytes % (auto) 8.6 % (10.0-50.0); Mean Corpuscular Hemoglobin 28.4 pg (28.0-32.0); Mean Corpuscular Hgb Conc. 32.8 g/dL (32.0-36.0); Mean Corpuscular Volume 86.6 fL (80.0-100.0); Monocytes # (auto) 0.4 10 ^3/uL (0-1.3); Monocytes % (auto) 3.2 % (0.0-12.0); Neutrophils # (auto) 9.9 10 ^3/uL (1.6-8.6); Neutrophils % (auto) 87.8 % (37.0-80.0); Platelet Count (auto) 403 10^3/uL (140-450); Red Blood Cells 4.55 10^6/uL (4.0-5.20); Red Cell Distribution Width 15.2 % (11.8-14.3); White Blood Cell 11.2 10^3/uL (4.4-10.8)
[2025-04-19 11:27] LABS: Alanine Aminotransferase 22 U/L (7-40); Anion Gap 11 (5-15); Aspartate Aminotransferase 22 U/L (<34); BUN/Creatinine Ratio 16.9 (10.0-20.0); Blood Urea Nitrogen 12 mg/dL (9-23); Carbon Dioxide 24 mmol/L (20-31); Chloride 104 mmol/L (98-107); Lipase 27 U/L (12-53); Sodium 139 mmol/L (136-145)
[2025-04-19 11:28] LABS: Bilirubin, Total 0.4 mg/dL (0.2-1.0)
[2025-04-19 11:31] LABS: Albumin 4.9 g/dL (3.2-4.8); Alkaline Phosphatase 161 U/L (46-116); Glucose 109 mg/dL (74-106); Potassium 3.2 mmol/L (3.5-5.1); Total Protein 8.3 g/dL (5.7-8.2)
[2025-04-19 12:19] LABS: Urine Bacteria None Seen /hpf (None Seen)
[2025-04-19 12:37] LABS: Urine Blood 2+ /uL (Negative); Urine Clarity Turbid (Clear); Urine Color Light-Yellow (Yellow); Urine Mucus FEW (None Seen); Urine Protein, UAD TRACE (Negative); Urine Specific Gravity 1.025 (1.001-1.035); Urine Squamous Epithelial Cell FEW /hpf (<5); Urine Urobilinogen Normal (Negative); Urine WBC 3 /HPF (0-5); Urine pH 7.5 (5.0-9.0)
[2025-04-19] MEDS: POTASSIUM CHL 20 Meq TABLET PO ONE (13:12)
--- NOTE | 2025-04-19 13:49 | DVH ---
Exam: CT CT AB PEL WO CON-NO ORAL OR IV History: n/v/d epig pain Comparison Study: CT CT AB PEL WO CON-NO ORAL OR IV on DOS: 06/30/24 Technique: Multidetector spiral CT of the abdomen and pelvis was performed from lung bases to pubic symphysis. Imaging was performed without IV contrast. Axial, coronal and sagittal multiplanar reform ats were obtained from the axial data set by the technologist. Radiation dose : Abdomen/Pelvis: CTDIvol 10 mGy, DLP 543 mGy*cm. Findings: Evaluation of solid organs is limited due to lack of intravenous contrast use. Lung Bases: No acute or significant lung base finding. Normal heart size. No pleural or pericardial effusion. Liver: The liver is normal in size. No focal lesions. Gallbladder and biliary Tree: Unremarkable Spleen: Unremarkable Pancreas: The pancreas is grossly normal in appearance. Adrenal Glands: Unremarkable Kidneys: Kidneys are grossly normal without calculi or hydronephrosis. Bladder: Grossly unremarkable for degree of distention. Bowel: The stomach is grossly normal in appearance. Small bowel and colon are normal in caliber and d istribution. Normal appendix is visualized in the right lower quadrant without findings of appendicit is. Ascites: Absent Lymphadenopathy: No mesenteric, retroperitoneal or periportal lymphadenopathy. Abdominal wall and Mesentery: Unremarkable. Vasculature: The visualized abdominal aorta is normal in size and caliber. Evaluation of abdominal a nd pelvic vessels is limited due to lack of intravenous contrast. Pelvic Organs: Unremarkable Musculoskeletal: No aggressive focal bony lesions, acute fractures or dislocation. IMPRESSION: 1. No acute abdominal or pelvic findings. Radiation optimization: All CT scans at this facility use at least one of these dose optimization kilo hniques: Automated exposure control mA and/or kV adjustment per patient size (includes targeted exams where dose is matched to clinical indication) or iterative reconstruction. HS:Y
[2025-04-19 14:05] VITALS: BP 107/68; PULSE 96; RESP 16; TEMP 98.6; O2SAT 98
[2025-04-19] MEDS ORDERED: ZOFR4T PO (14:52)
[2025-04-19 15:14] LABS: Amphetamine Screen, Urine Neg (NEGATIVE); Barbiturate Scree,Urine Neg (NEGATIVE); Benzodiazephine Screen, Urine Neg (NEGATIVE); Cannabinoid Screen, Urine Pos (NEGATIVE); Cocaine Screen, Urine Neg (NEGATIVE); Opiate Scree,Urine Neg (NEGATIVE); Phencyclidine Screen, Urine Neg (NEGATIVE)
== END 2025-04-19 14:58 | disposition home or self-care (01) ==
LOC: ER 10:13
DX: R11.2 Nausea with vomiting, unspecified (principal); R19.7 Diarrhea, unspecified; F12.90 Cannabis use, unspecified, uncomplicated; Z79.899 Other long term (current) drug therapy
CPT/HCPCS: 36415; 74176; 80053; 80307; 81001; 81025; 83605; 83690; 85025; 93005; 96361; 96374; 99285; J2405; J7030

== ENCOUNTER 2025-08-04 11:32 | Emergency (ER) | payer BC ==
[~2025-08-04] VITALS: Ht 157.5 cm; Wt 72.1 kg
[~2025-08-04 11:32] MED LIST changes: +ZOFR4T PO
--- NOTE | 2025-08-04 11:51 | ED.PDOC ---
GI ASSESSMENT HPI Comments 19 y/o F, presents to the ED for CC of nausea/vomiting. Patient states, she has been experiencing symptoms of nausea/vomiting with associated abdominal pain x1day. Patient reports, recent marijuana usage. Patient denies hematemesis, diarrhea, fever, chills, or fatigue. No other associated symptoms, modifiers, recent injuries or sick contacts present at this time. Chief Complaint: Nausea/Vomiting Time Seen by MD: 11:47 Primary Care Provider: UNKNOWN Reviewed Notes: Nurses Notes, Medications, Allergies Allergies: Coded Allergies: NO KNOWN ALLERGIES (Unverified , 05/07/24) Home Meds Active Scripts Pantoprazole Sodium Sesquihydr (Protonix) 40 Mg Tab, 40 MG PO DAILY, #30 TAB Prov:ALEX OLIVER MD 08/04/25 Ondansetron Odt 4MG Tab (ZOFRAN PO) 4 Mg Tb, 4 MG PO Q8HPRN PRN for 3 Days, #9 TAB ODT TAB-DISSOLVE IN MOUTH, THEN SWALLOW Prov:ALEX OLIVER MD 08/04/25 Ergocalciferol (VITAMIN D 56876 UNIT) 50,000 [place], [address] UNIT PO QWEEKLY for 30 Days, #10 CAP Prov:YESSICA AWAD 10/05/24 Reported Medications Ondansetron HCl (Ondansetron Hydrochloride) 4 Mg Tab, 1 TAB PO DAILY 10/05/24 Cephalexin Monohydrate (Cephalexin) 500 Mg Cap, 1 CAP PO QID 10/05/24 Information Source: Patient Mode of Arrival: Ambulatory Timing: Days Duration: Since onset Prehospital treatment: None Vomitus: Watery Stool: Normal Severity: Moderate Recent: None Recent Hx of: None Pain Location: Epigastric Modifying Factors: Nothing Associated sign and symptoms: Nausea, Vomiting, Abdominal Pain Past Medical History PAST MEDICAL HISTORY: UTI'S Surgical History: Denies all surgeries ARTISAN PLASTERER History: No Pertinent ARTISAN PLASTERER History Family History Family History: Family hx of DM Social History Smoker: Non-Smoker Alcohol: Occasionally Drugs: Marijuana Lives In: Home Constitutional: denies: chills, diaphoresis, fatigue, fever, malaise, sweats, weakness, others EENTM: denies: blurred vision, double vision, ear bleeding, ear discharge, ear drainage, ear pain, ear ringing, eye pain, eye redness, hearing loss, mouth pain, mouth swelling, nasal discharge, nose bleeding, nose congestion, nose pain, photophobia, tearing, throat pain, throat swelling, voice changes, others Respiratory: denies: cough, hemoptysis, orthopnea, SOB at rest, shortness of breath, SOB with excertion, stridor, wheezing, others Cardiovascular: denies: chest pain, dizzy spells, diaphoresis, Dyspnea on exertion, edema, irregular heart beat, left arm pain, lightheadedness, palpitations, PND, syncope, others Gastrointestinal: reports: abdominal pain; denies: abdomen distended, blood streaked bowels, constipated, diarrhea, dysphagia, difficulty swallowing, hematemesis, melena, nausea, poor appetite, poor fluid intake, rectal bleeding, rectal pain, vomiting, others Genitourinary: denies: abnormal vagina bleeding, burning, dyspareunia, dysuria, flank pain, frequency, hematuria, incontinence, pain, , vagina discharge, urgency, others Neurological: denies: dizziness, fainting, headache, left sided numbness, left sided weakness, numbness, paresthesia, pre-existing deficit, right sided numbness, right sided weakness, seizure, speech problems, tingling, tremors, weakness, others Musculoskeletal: denies: back pain, gout, joint pain, joint swelling, muscle pain, muscle stiffness, neck pain, others Integumetry: denies: bruises, change in color, change in hair/nails, dryness, laceration, lesions, lumps, rash, wounds, others Allergic/Immunocompromised: denies: Difficulty Healing, Frequent Infections, Hives, Itching, others Hematologic/Lymphatic: denies: anemia, blood clots, easy bleeding, easy bruising, swollen glands, others Endocrine: denies: excessive hunger, excessive sweating, excessive thirst, excessive urination, flushing, intolerance to cold, intolerance to heat, unexplained weight gain, unexplained weight loss, others Psychiatric: denies: anxiety, bipolar disorder, depression, hopeless, panic disorder, schizophrenia, sleepless, suicidal, others All Other Systems: Reviewed and Negative Physical Exam General Appearance: Moderate Distress HEENT: Normal ENT Inspection, Pharynx Normal, TMs Normal Neck: Full Range of Motion, Non-Tender, Normal, Normal Inspection Respiratory: Chest Non-Tender, Lungs Clear, No Accessory Muscle Use, No Respiratory Distress, Normal Breath Sounds Cardiovascular: No Edema, No JVD, No Murmur, No Gallop, Normal Peripheral Pulses, Regular Rate/Rhythm Breast Exam: Deferred Gastrointestinal: Epigastric, No Organomegaly, No Pulsatile Mass, Normal Bowel Sounds, Soft, Tenderness Genitalia: Deferred Pelvic: Deferred Rectal: Deferred Extremities: No calf tenderness, Normal capillary refill, Normal inspection, Normal range of motion, Non-tender, No pedal edema Musculoskeletal : Apperance: Normal Neurologic: Alert, forestry fire aid II-XII nml as Tested, No Motor Deficits, Normal Affect, Normal Mood, No Sensory Deficits Cerebellar Function: Normal Reflexes: Normal Skin: Dry, Normal Color, Warm Lymphatic: No Adenopathy Was a procedure done? Was a procedure done?: No GI differential Dx Differential Diagnosis: Gastritis/PUD, Gastroenteritis, Drug toxicity, Electrolyte Imbalance X-Ray, Labs, Meds, VS Vital Signs Date Time Temp Pulse Resp B/P (MAP) Pulse Ox O2 Delivery O2 Flow Rate FiO2 08/04/25 12:02 96.6 87 18 130/41 (70) 99 96.6 08/04/25 11:33 96.6 87 18 130/41 99 96.6 Lab Test 08/04/25 15:04 08/04/25 12:38 Range/Units Urine Color Yellow Yellow Urine Clarity Turbid H Clear Urine pH 6.0 5.0-9.0 Urine Specific [place] 1.032 1.001-1.035 Urine Protein 1+ H Negative Urine Ketones 4+ H Negative Urine Blood Negative Negative /uL Urine Nitrite Negative Negative Urine Bilirubin Negative Negative Urine Urobilinogen Normal Negative mg/dL Urine Leukocyte Esterase 1+ Negative /uL Urine RBC 2 0 - 4 /hpf Urine Microscopic WBC 5 0-5 /HPF Urine Squamous Epithelial Cells Mod <5 /hpf Urine Bacteria None seen None Seen /hpf Urine Mucus Few None Seen Urine Glucose Trace Normal mg/dL Urine Test Negative Negative Urine Opiates Screen Neg NEGATIVE Urine Fentanyl Screen Neg NEGATIVE Urine Barbiturates Screen Neg NEGATIVE Urine Phencyclidine Screen Neg NEGATIVE Urine Amphetamines Screen Neg NEGATIVE Urine Benzodiazepines Screen Neg NEGATIVE Urine Cocaine Screen Neg NEGATIVE Urine Cannabinoids Screen Pos NEGATIVE White Blood Count 11.2 H 4.4-10.8 10^3/uL Red Blood Count 4.22 4.0-5.20 10^6/uL Hemoglobin 12.0 L 12.2-16.2 g/dL Hematocrit 36.7 36.0-46.0 % Mean Corpuscular Volume 87.0 80.0-100.0 fL Mean Corpuscular Hemoglobin 28.3 28.0-32.0 pg Mean Corpuscular Hemoglobin Concent 32.6 32.0-36.0 g/dL Red Cell Distribution Width 15.3 H 11.8-14.3 % Platelet Count 337 140-450 10^3/uL Mean Platelet Volume 9.1 6.9-10.8 fL Neutrophils (%) (Auto) 91.7 H 37.0-80.0 % Lymphocytes (%) (Auto) 5.6 L 10.0-50.0 % Monocytes (%) (Auto) 2.4 0.0-12.0 % Eosinophils (%) (Auto) 0.0 0.0-7.0 % Basophils (%) (Auto) 0.3 0.0-2.0 % Neutrophils # (Auto) 10.3 H 1.6-8.6 10 ^3/uL Lymphocytes # (Auto) 0.6 0.4-5.4 10 ^3/uL Monocytes # (Auto) 0.3 0-1.3 10 ^3/uL Eosinophils # (Auto) 0 0-0.8 10 ^3/uL Basophils # (Auto) 0 0-0.2 10 ^3/uL Nucleated Red Blood Cells 0.0 % Sodium Level 142 136-145 mmol/L Potassium Level 4.0 3.5-5.1 mmol/L Chloride Level 105 98-107 mmol/L Carbon Dioxide Level 22 20-31 mmol/L Anion Gap 15 5-15 Blood Urea Nitrogen 11 9-23 mg/dL Creatinine 0.82 0.550-1.02 mg/dL Glomerular Filtration Rate Calc 105 >90 mL/min BUN/Creatinine Ratio 13.4 10.0-20.0 Serum Glucose 178 H 74-106 mg/dL Calcium Level 9.4 8.7-10.4 mg/dL Total Bilirubin 0.7 0.2-1.0 mg/dL Aspartate Amino Transferase (AST) 20 13-40 U/L Alanine Aminotransferase (ALT) 19 7-40 U/L Alkaline Phosphatase 145 H 46-116 U/L Total Protein 7.9 5.7-8.2 g/dL Albumin 4.9 H 3.2-4.8 g/dL Current Medications Medications (Trade) Dose Ordered Sig/Nikki Route Start Time Stop Time Status Last Admin Sodium Chloride 1,000 ml @ 1,000 mls/hr Q1H ONCE IV 08/04/25 12:00 08/04/25 12:59 DC 08/04/25 11:54 Prochlorperazine Edisylate (Compazine Inj) 10 mg ONCE ONCE IV 08/04/25 12:00 08/04/25 12:01 DC 08/04/25 11:54 Pantoprazole Sodium (Protonix) 40 mg ONCE ONCE IV 08/04/25 12:00 08/04/25 12:01 DC 08/04/25 11:54 The patient's CBC shows an elevated white blood cell count 11.2 The rest of the CBC is within normal limits The chemistry panel is within normal limits. An IV Hep-Lock was established and the patient was given a 1 L bolus of normal saline The patient was given Compazine 10 mg IV push The patient was given Protonix 40 mg IV push Time of 1ST Reevaluation: 11:13 Reevaluation 1ST: Unchanged Patient Education/Counseling: Diagnosis, Treatment, Prognosis, Need For Follow Up Family Education/Counseling: No Family Present SEPSIS Sepsis Screen Date sepsis recognized/suspect: Aug 04, 2025 Time Sepsis recognized/suspect: 7 Recent Procedure: No On Antibiotic Therapy: No Respiratory Rate >20: No Heart Rate >90: No Temp<36 C (96.8 F) or >38.3 C: No SBP <90 or MAP <65 mmHG: No New Acute Mental Status Change: No Is the patient on CPAP, BIPAP,: No Physician Orders Heplock Iv (08/04/25 11:47) Vital Signs Date Time Temp Pulse Resp B/P (MAP) Pulse Ox O2 Delivery O2 Flow Rate FiO2 08/04/25 12:02 96.6 87 18 130/41 (70) 99 96.6 08/04/25 11:33 96.6 87 18 130/41 99 96.6 Laboratory Tests Test 08/04/25 12:38 White Blood Count 11.2 10^3/uL (4.4-10.8) H Medications Medications Dose Ordered Sig/Nikki Route Start Time Stop Time Status Last Admin Dose Admin Pantoprazole Sodium 40 mg ONCE ONCE IV 08/04/25 12:00 08/04/25 12:01 DC 08/04/25 11:54 Prochlorperazine Edisylate 10 mg ONCE ONCE IV 08/04/25 12:00 08/04/25 12:01 DC 08/04/25 11:54 Sodium Chloride 1,000 ml @ 1,000 mls/hr Q1H ONCE IV 08/04/25 12:00 08/04/25 12:59 DC 08/04/25 11:54 Departure 1 Departure Time of Disposition: 17:32 Impression: Primary Impression: Cannabinoid hyperemesis syndrome Additional Impression: Abdominal pain Qualified Codes: R10.9 - Unspecified abdominal pain Disposition: HOME / SELF CARE / HOMELESS Condition: Fair e-Prescriptions Pantoprazole Sodium Sesquihydr (Protonix) 40 Mg Tab 40 MG PO DAILY, #30 TAB Prov: ALEX OLIVER MD 08/04/25 Ondansetron Odt 4MG Tab (ZOFRAN PO) 4 Mg Tb 4 MG PO Q8HPRN PRN for 3 Days, #9 TAB ODT TAB-DISSOLVE IN MOUTH, THEN SWALLOW Prov: ALEX OLIVER MD 08/04/25 Discharged With: Self Critical Care Note Critical Care Time?: No Stability Stability form required: No Heart Score Heart Score: Heart Score Response (Comments) Value History N/A 0 EKG N/A 0 Age N/A 0 Risk Factors N/A 0 Troponin N/A 0 Total 0 I personally scribed for ALEX OLIVER MD ([email or web address]) on 08/04/25 at 11:51. Electronically submitted by Madison Roberts [email or web address]). ALEX OLIVER MD Aug 04, 2025 11:51
[2025-08-04] MEDS: PANTOPRAZOLE 40 MG/10 ML VIAL INJ IV ONE (11:54)
[2025-08-04] MEDS: SODIUM CHLORIDE 0.9% 1,000 ML IV ONE (11:54)
[2025-08-04] MEDS: PROCHLORPERAZINE EDISYLATE 5 MG/ML 2ML VIAL IV ONE (11:54)
[2025-08-04 12:55] LABS: Hematocrit 36.7 % (36.0-46.0); Hemoglobin 12.0 g/dL (12.2-16.2); Mean Corpuscular Hemoglobin 28.3 pg (28.0-32.0); Mean Corpuscular Volume 87.0 fL (80.0-100.0); Nucleated Red Blood Cells % 0.0 %
[2025-08-04 13:11] LABS: Alanine Aminotransferase 19 U/L (7-40); Anion Gap 15 (5-15); BUN/Creatinine Ratio 13.4 (10.0-20.0); Bilirubin, Total 0.7 mg/dL (0.2-1.0); Blood Urea Nitrogen 11 mg/dL (9-23); Calcium 9.4 mg/dL (8.7-10.4); Carbon Dioxide 22 mmol/L (20-31); Chloride 105 mmol/L (98-107); Potassium 4.0 mmol/L (3.5-5.1); Sodium 142 mmol/L (136-145); Total Protein 7.9 g/dL (5.7-8.2)
[2025-08-04 13:42] LABS: Albumin 4.9 g/dL (3.2-4.8); Alkaline Phosphatase 145 U/L (46-116); Glucose 178 mg/dL (74-106)
[2025-08-04 15:23] LABS: Urine Protein, UAD 1+ (Negative)
[2025-08-04 15:44] LABS: Cannabinoid Screen, Urine Pos (NEGATIVE)
[2025-08-04 15:50] LABS: Amphetamine Screen, Urine Neg (NEGATIVE); Barbiturate Scree,Urine Neg (NEGATIVE); Benzodiazephine Screen, Urine Neg (NEGATIVE); Cocaine Screen, Urine Neg (NEGATIVE); Opiate Scree,Urine Neg (NEGATIVE); Phencyclidine Screen, Urine Neg (NEGATIVE)
[2025-08-04] MEDS ORDERED: ZOFR4T PO (17:34)
[2025-08-04] MEDS ORDERED: PANT40TA2 PO (17:34)
[2025-08-04 17:41] VITALS: BP 126/72; PULSE 68; RESP 16; TEMP 98.3; O2SAT 97
== END 2025-08-04 17:42 | disposition home or self-care (01) ==
LOC: ER 11:32
DX: R11.16 Cannabis hyperemesis syndrome (principal); R10.9 Unspecified abdominal pain; R11.2 Nausea with vomiting, unspecified; F12.90 Cannabis use, unspecified, uncomplicated; Z79.899 Other long term (current) drug therapy
CPT/HCPCS: 36415; 80053; 80307; 81001; 81025; 85025; 96361; 96374; 96375; 99284; J0780; J2470; J7030

== ENCOUNTER 2025-08-06 07:44 | Inpatient (IN) | payer BC ==
[~2025-08-06] VITALS: Ht 157.5 cm; Wt 74.3 kg
[~2025-08-06 07:44] MED LIST changes: +PANT40TA2 PO
--- NOTE | 2025-08-06 08:06 | ED.PDOC ---
GI ASSESSMENT HPI Comments 19 y/o F, presents to the ED for CC of nausea/vomiting. Patient states, she has been experiencing symptoms of nausea/vomiting with associated abdominal pain and hematemesis x3 days. Patient reports, recent marijuana usage, but has not used it since her initial visit 2 days ago. Patient denies diarrhea, fever, chills, or fatigue. No other associated symptoms, modifiers, recent injuries or sick contacts present at this time. Chief Complaint: Abdominal Pain Time Seen by MD: 08:05 Primary Care Provider: UNKNOWN Reviewed Notes: Nurses Notes, Medications, Allergies Allergies: Coded Allergies: NO KNOWN ALLERGIES (Unverified , 05/07/24) Home Meds Active Scripts Pantoprazole Sodium Sesquihydr (Protonix) 40 Mg Tab, 40 MG PO DAILY, #30 TAB Prov:ALEX OLIVER MD 08/04/25 Ondansetron Odt 4MG Tab (ZOFRAN PO) 4 Mg Tb, 4 MG PO Q8HPRN PRN for 3 Days, #9 TAB ODT TAB-DISSOLVE IN MOUTH, THEN SWALLOW Prov:ALEX OLIVER MD 08/04/25 Ergocalciferol (VITAMIN D 33748 UNIT) 50,000 [place], [address] UNIT PO QWEEKLY for 30 Days, #10 CAP Prov:YESSICA AWAD RESIDENT 10/05/24 Reported Medications Ondansetron HCl (Ondansetron Hydrochloride) 4 Mg Tab, 1 TAB PO DAILY 10/05/24 Cephalexin Monohydrate (Cephalexin) 500 Mg Cap, 1 CAP PO QID 10/05/24 Information Source: Patient Mode of Arrival: Ambulatory Timing: Days Duration: Since onset Prehospital treatment: None Quality: Aching Vomitus: Watery, Bright Red Bood Stool: Normal Severity: Moderate Recent: Other (Marijuana use) Recent Hx of: None Pain Location: Epigastric Modifying Factors: Nothing Associated sign and symptoms: Nausea, Vomiting, Hematemesis, Abdominal Pain Past Medical History PAST MEDICAL HISTORY: UTI'S Surgical History: Denies all surgeries PENCIL MAKER History: No Pertinent PENCIL MAKER History Family History Family History: Family hx of DM Social History Smoker: Non-Smoker Alcohol: Occasionally Drugs: Marijuana Lives In: Home Constitutional: denies: chills, diaphoresis, fatigue, fever, malaise, sweats, weakness, others EENTM: denies: blurred vision, double vision, ear bleeding, ear discharge, ear drainage, ear pain, ear ringing, eye pain, eye redness, hearing loss, mouth pain, mouth swelling, nasal discharge, nose bleeding, nose congestion, nose pain, photophobia, tearing, throat pain, throat swelling, voice changes, others Respiratory: denies: cough, hemoptysis, orthopnea, SOB at rest, shortness of breath, SOB with excertion, stridor, wheezing, others Cardiovascular: denies: chest pain, dizzy spells, diaphoresis, Dyspnea on exertion, edema, irregular heart beat, left arm pain, lightheadedness, palpitations, PND, syncope, others Gastrointestinal: reports: abdominal pain, hematemesis, nausea, vomiting; denies: abdomen distended, blood streaked bowels, constipated, diarrhea, dysphagia, difficulty swallowing, melena, poor appetite, poor fluid intake, rectal bleeding, rectal pain, others Genitourinary: denies: abnormal vagina bleeding, burning, dyspareunia, dysuria, flank pain, frequency, hematuria, incontinence, pain, , vagina discharge, urgency, others Neurological: denies: dizziness, fainting, headache, left sided numbness, left sided weakness, numbness, paresthesia, pre-existing deficit, right sided numbness, right sided weakness, seizure, speech problems, tingling, tremors, weakness, others Musculoskeletal: denies: back pain, gout, joint pain, joint swelling, muscle pain, muscle stiffness, neck pain, others Integumetry: denies: bruises, change in color, change in hair/nails, dryness, laceration, lesions, lumps, rash, wounds, others Allergic/Immunocompromised: denies: Difficulty Healing, Frequent Infections, Hives, Itching, others Hematologic/Lymphatic: denies: anemia, blood clots, easy bleeding, easy bruising, swollen glands, others Endocrine: denies: excessive hunger, excessive sweating, excessive thirst, excessive urination, flushing, intolerance to cold, intolerance to heat, unexplained weight gain, unexplained weight loss, others Psychiatric: denies: anxiety, bipolar disorder, depression, hopeless, panic disorder, schizophrenia, sleepless, suicidal, others All Other Systems: Reviewed and Negative Physical Exam General Appearance: Moderate Distress HEENT: Normal ENT Inspection, Pharynx Normal, TMs Normal Neck: Full Range of Motion, Non-Tender, Normal, Normal Inspection Respiratory: Chest Non-Tender, Lungs Clear, No Accessory Muscle Use, No Respiratory Distress, Normal Breath Sounds Cardiovascular: No Edema, No JVD, No Murmur, No Gallop, Normal Peripheral Pulses, Regular Rate/Rhythm Breast Exam: Deferred Gastrointestinal: Epigastric, No Organomegaly, No Pulsatile Mass, Normal Bowel Sounds, Soft, Tenderness Genitalia: Deferred Pelvic: Deferred Rectal: Deferred Extremities: No calf tenderness, Normal capillary refill, Normal inspection, Normal range of motion, Non-tender, No pedal edema Musculoskeletal : Apperance: Normal Neurologic: Alert, autoglazier II-XII nml as Tested, No Motor Deficits, Normal Affect, Normal Mood, No Sensory Deficits Cerebellar Function: Normal Reflexes: Normal Skin: Dry, Normal Color, Warm Lymphatic: No Adenopathy Was a procedure done? Was a procedure done?: No GI differential Dx Differential Diagnosis: Gastroenteritis, Pancreatitis, UTI, Electrolyte Imbalance, Food Poisoning X-Ray, Labs, Meds, VS Vital Signs Date Time Temp Pulse Resp B/P (MAP) Pulse Ox O2 Delivery O2 Flow Rate FiO2 08/06/25 08:41 92 18 96 Room Air 08/06/25 08:41 102 18 114/81 (92) 96 08/06/25 07:45 98.2 114 18 118/94 96 98.2 Lab Test 08/06/25 08:16 08/06/25 08:15 Range/Units Urine Color Yellow Yellow Urine Clarity Turbid H Clear Urine pH 6.0 5.0-9.0 Urine Specific [place] 1.025 1.001-1.035 Urine Protein 1+ H Negative Urine Ketones 3+ H Negative Urine Blood Negative Negative /uL Urine Nitrite Negative Negative Urine Bilirubin Negative Negative Urine Urobilinogen Normal Negative mg/dL Urine Leukocyte Esterase Negative Negative /uL Urine RBC 3 0 - 4 /hpf Urine Microscopic WBC 4 0-5 /HPF Urine Squamous Epithelial Cells Few <5 /hpf Urine Bacteria None seen None Seen /hpf Urine Mucus Moderate None Seen Urine Glucose Normal Normal mg/dL White Blood Count 11.1 H 4.4-10.8 10^3/uL Red Blood Count 4.38 4.0-5.20 10^6/uL Hemoglobin 12.3 12.2-16.2 g/dL Hematocrit 37.4 36.0-46.0 % Mean Corpuscular Volume 85.4 80.0-100.0 fL Mean Corpuscular Hemoglobin 28.1 28.0-32.0 pg Mean Corpuscular Hemoglobin Concent 32.9 32.0-36.0 g/dL Red Cell Distribution Width 15.1 H 11.8-14.3 % Platelet Count 312 140-450 10^3/uL Mean Platelet Volume 8.9 6.9-10.8 fL Neutrophils (%) (Auto) 86.2 H 37.0-80.0 % Lymphocytes (%) (Auto) 9.1 L 10.0-50.0 % Monocytes (%) (Auto) 4.4 0.0-12.0 % Eosinophils (%) (Auto) 0.0 0.0-7.0 % Basophils (%) (Auto) 0.3 0.0-2.0 % Neutrophils # (Auto) 9.6 H 1.6-8.6 10 ^3/uL Lymphocytes # (Auto) 1.0 0.4-5.4 10 ^3/uL Monocytes # (Auto) 0.5 0-1.3 10 ^3/uL Eosinophils # (Auto) 0 0-0.8 10 ^3/uL Basophils # (Auto) 0 0-0.2 10 ^3/uL Nucleated Red Blood Cells 0.0 % Sodium Level 134 #L 136-145 mmol/L Potassium Level 3.0 L 3.5-5.1 mmol/L Chloride Level 97 L 98-107 mmol/L Carbon Dioxide Level 21 20-31 mmol/L Anion Gap 16 H 5-15 Blood Urea Nitrogen 9 9-23 mg/dL Creatinine 0.81 0.550-1.02 mg/dL Glomerular Filtration Rate Calc 107 >90 mL/min BUN/Creatinine Ratio 11.1 10.0-20.0 Serum Glucose 100 74-106 mg/dL Calcium Level 9.2 8.7-10.4 mg/dL The patient's CBC shows an elevated white blood cell count of 11.1 The rest of the CBC is within normal limits The chemistry panel shows hypokalemia at 3.0 At this time, the patient is being admitted to the hospitalist. The patient is still having intractable pain and vomiting The patient was given potassium as a 20 mEq K rider The patient understands and agrees with the management Images Reviewed?: Images reviewed and evaluated by me Time of 1ST Reevaluation: 08:50 Reevaluation 1ST: Unchanged Patient Education/Counseling: Diagnosis, Treatment, Prognosis Family Education/Counseling: No Family Present SEPSIS Sepsis Screen Date sepsis recognized/suspect: Aug 06, 2025 Time Sepsis recognized/suspect: 0745 Recent Procedure: No On Antibiotic Therapy: No Respiratory Rate >20: No Heart Rate >90: Yes Temp<36 C (96.8 F) or >38.3 C: No SBP <90 or MAP <65 mmHG: No New Acute Mental Status Change: No Is the patient on CPAP, BIPAP,: No Physician Orders Sodium Chloride 0.9% (08/06/25 08:15) Heplock Iv (08/06/25 08:01) Vital Signs Date Time Temp Pulse Resp B/P (MAP) Pulse Ox O2 Delivery O2 Flow Rate FiO2 08/06/25 08:41 92 18 96 Room Air 08/06/25 08:41 102 18 114/81 (92) 96 08/06/25 07:45 98.2 114 18 118/94 96 98.2 Laboratory Tests Test 08/06/25 08:15 White Blood Count 11.1 10^3/uL (4.4-10.8) H Departure 1 Departure Time of Disposition: 08:49 Impression: Primary Impression: Intractable abdominal pain Additional Impressions: Intractable vomiting Cannabis use disorder Hypokalemia Dehydration Disposition: 09 ADMITTED INPATIENT Admit to: Med Surg Condition: Fair Critical Care Note Critical Care Time?: No Stability Stability form required: Yes Unstable for transfer: ED Physician Assesment (Clinical assesment) Heart Score Heart Score: Heart Score Response (Comments) Value History N/A 0 EKG N/A 0 Age N/A 0 Risk Factors N/A 0 Troponin N/A 0 Total 0 I personally scribed for ALEX OLIVER MD ([email or web address]) on 08/06/25 at 08:06. Electronically submitted by Miki Moy ([email or web address]). ALEX OLIVER MD Aug 06, 2025 08:06
[2025-08-06] MEDS: SODIUM CHLORIDE 0.9% 1,000 ML IVB ONE (08:15)
[2025-08-06 08:32] LABS: Hematocrit 37.4 % (36.0-46.0); Hemoglobin 12.3 g/dL (12.2-16.2); Mean Corpuscular Hemoglobin 28.1 pg (28.0-32.0); Mean Corpuscular Volume 85.4 fL (80.0-100.0); Nucleated Red Blood Cells % 0.0 %
[2025-08-06 08:36] LABS: Anion Gap 16 (5-15); Calcium 9.2 mg/dL (8.7-10.4); Carbon Dioxide 21 mmol/L (20-31)
[2025-08-06 08:40] LABS: Urine Protein, UAD 1+ (Negative)
[2025-08-06 08:41] LABS: BUN/Creatinine Ratio 11.1 (10.0-20.0); Blood Urea Nitrogen 9 mg/dL (9-23); Glucose 100 mg/dL (74-106)
[2025-08-06 08:42] LABS: Chloride 97 mmol/L (98-107); Potassium 3.0 mmol/L (3.5-5.1); Sodium 134 mmol/L (136-145)
[2025-08-06] MEDS ORDERED: MORPHINE SULFATE INJ 2 MG/ml SYRG IV PRN (09:00)
[2025-08-06] MEDS ORDERED: ONDANSETRON HCL 4 MG/2 ML VIAL IV PRN (09:00)
[2025-08-06] MEDS ORDERED: ACETAMINOPHEN 325 MG TAB PO PRN (09:00)
[2025-08-06] MEDS ORDERED: HYDROcodone-ACET 5/325MG TAB PO PRN (09:00)
--- NOTE | 2025-08-06 09:12 | DVHHP2 ---
History of Present Illness Reason for Visit: Nausea and vomiting History of Present Illness Mariely Gaffney is a 19-year-old female with past medical history of UTIs and marijuana use who presents to the ED with nausea and vomiting x 3 days. Patient also reports vomiting streaks of blood for the last 2 days. She does not recall how many times she has vomited since the initial episode. She reports that she uses vape and marijuana. She reports that she uses marijuana twice per week for the last year. She reports that this is the 1st time these symptoms have, about. Her last marijuana use was 2 days prior to her having the nausea and vomiting. Patient denies any recent trauma or injury, recent sick contacts, recent travels, recent ingestion of spoiled food, chest pain, shortness of breath, fever, chills, lightheadedness, weakness, dizziness, or urinary symptoms. Renal/: UTI Past Surgical History: None Family History: None Smoke: # pack years (Vape) ALCOHOL: none Drugs: Marijuana Lives: with Family Domestic Violence: Neg Review of Systems Gastrointestinal: Nausea, Vomiting, Abdominal Pain, Other (Hematemesis) Allergies: Coded Allergies: NO KNOWN ALLERGIES (Unverified , 05/07/24) Exam Vital Signs Vital Signs Date Time Temp Pulse Resp B/P (MAP) Pulse Ox O2 Delivery O2 Flow Rate FiO2 08/06/25 08:41 92 18 96 Room Air 08/06/25 08:41 114/81 (92) 08/06/25 07:45 98.2 98.2 General Appearance: Alert, Oriented X3, Cooperative, No acute distress HEENT: Atraumatic, PERRLA, EOMI, Mucous membr. moist/pink Respiratory: Clear to auscultation, Normal air movement Cardiovascular: Normal S1, Normal S2, No murmurs Abdominal: Normal bowel sounds, Soft Extremities: No clubbing, No cyanosis, No edema, Normal pulses Skin: No significant lesion Neuro: Normal gait, Normal speech, Strength at 5/5 X4 ext, Normal tone, Sensation intact Psych/Mental Status: Mental status NL, Mood NL Labs/Xrays Labs Test 08/06/25 08:16 08/06/25 08:15 Range/Units Urine Color Yellow Yellow Urine Clarity Turbid H Clear Urine pH 6.0 5.0-9.0 Urine Specific [place] 1.025 1.001-1.035 Urine Protein 1+ H Negative Urine Ketones 3+ H Negative Urine Blood Negative Negative /uL Urine Nitrite Negative Negative Urine Bilirubin Negative Negative Urine Urobilinogen Normal Negative mg/dL Urine Leukocyte Esterase Negative Negative /uL Urine RBC 3 0 - 4 /hpf Urine Microscopic WBC 4 0-5 /HPF Urine Squamous Epithelial Cells Few <5 /hpf Urine Bacteria None seen None Seen /hpf Urine Mucus Moderate None Seen Urine Glucose Normal Normal mg/dL White Blood Count 11.1 H 4.4-10.8 10^3/uL Red Blood Count 4.38 4.0-5.20 10^6/uL Hemoglobin 12.3 12.2-16.2 g/dL Hematocrit 37.4 36.0-46.0 % Mean Corpuscular Volume 85.4 80.0-100.0 fL Mean Corpuscular Hemoglobin 28.1 28.0-32.0 pg Mean Corpuscular Hemoglobin Concent 32.9 32.0-36.0 g/dL Red Cell Distribution Width 15.1 H 11.8-14.3 % Platelet Count 312 140-450 10^3/uL Mean Platelet Volume 8.9 6.9-10.8 fL Neutrophils (%) (Auto) 86.2 H 37.0-80.0 % Lymphocytes (%) (Auto) 9.1 L 10.0-50.0 % Monocytes (%) (Auto) 4.4 0.0-12.0 % Eosinophils (%) (Auto) 0.0 0.0-7.0 % Basophils (%) (Auto) 0.3 0.0-2.0 % Neutrophils # (Auto) 9.6 H 1.6-8.6 10 ^3/uL Lymphocytes # (Auto) 1.0 0.4-5.4 10 ^3/uL Monocytes # (Auto) 0.5 0-1.3 10 ^3/uL Eosinophils # (Auto) 0 0-0.8 10 ^3/uL Basophils # (Auto) 0 0-0.2 10 ^3/uL Nucleated Red Blood Cells 0.0 % Sodium Level 134 #L 136-145 mmol/L Potassium Level 3.0 L 3.5-5.1 mmol/L Chloride Level 97 L 98-107 mmol/L Carbon Dioxide Level 21 20-31 mmol/L Anion Gap 16 H 5-15 Blood Urea Nitrogen 9 9-23 mg/dL Creatinine 0.81 0.550-1.02 mg/dL Glomerular Filtration Rate Calc 107 >90 mL/min BUN/Creatinine Ratio 11.1 10.0-20.0 Serum Glucose 100 74-106 mg/dL Calcium Level 9.2 8.7-10.4 mg/dL EXAM: CT CT AB PEL WO CON-NO ORAL OR IV HISTORY: n/v COMPARISON: CT CT AB PEL WO CON-NO ORAL OR IV on DOS: 04/19/25, CT CT AB PEL WO CON-NO ORAL OR IV on DOS: 06/30/24 TECHNIQUE: Helical CT images of the abdomen and pelvis were performed without IV contrast. Sagittal and coronal reformatted images were obtained. This CT exam was performed using one or more of the following dose reduction techniques: Automated exposure control, adjustment of the mA and/or kv according to patient size, or the use of iterative reconstruction techniques. Radiation Dose: Abdomen/Pelvis: CTDIvol 7.81 mGy, DLP 388.39 mGy*cm. FINDINGS: CT abdomen: The lung bases are clear. The heart is not enlarged. The noncontrast liver, spleen, gallbladder, pancreas, kidneys, and adrenal glands are unremarkable. No abdominal aortic aneurysm. CT pelvis: No abnormal bowel dilatation or free air. There is low volume free fluid in the pelvis. The urinary bladder is unremarkable. The appendix does not appear dilated or inflamed. urinary bladder are unremarkable. IMPRESSION: 1. Low volume free fluid in the pelvis, likely physiologic. 2. No evidence of bowel obstruction, acute appendicitis, or other acute process in the abdomen or pelvis. SEPSIS Sepsis Screen Date sepsis recognized/suspect: Aug 06, 2025 Time Sepsis recognized/suspect: 0745 Recent Procedure: No On Antibiotic Therapy: No Respiratory Rate >20: No Heart Rate >90: Yes Temp<36 C (96.8 F) or >38.3 C: No SBP <90 or MAP <65 mmHG: No New Acute Mental Status Change: No Is the patient on CPAP, BIPAP,: No Physician Orders Sodium Chloride 0.9% (08/06/25 08:15) Heplock Iv (08/06/25 08:01) Vital Signs Date Time Temp Pulse Resp B/P (MAP) Pulse Ox O2 Delivery O2 Flow Rate FiO2 08/06/25 08:41 92 18 96 Room Air 08/06/25 08:41 102 18 114/81 (92) 96 08/06/25 07:45 98.2 114 18 118/94 96 98.2 Laboratory Tests Test 08/06/25 08:15 White Blood Count 11.1 10^3/uL (4.4-10.8) H Medications Medications Dose Ordered Sig/Nikki Route Start Time Stop Time Status Last Admin Dose Admin Sodium Chloride 1,000 ml @ 1,000 mls/hr Q1H ONCE IVB 08/06/25 08:15 08/06/25 09:14 08/06/25 08:15 1,000 MLS/HR Assessment/Plan Assessment/Plan Assessment Intractable nausea and vomiting unrelieved with p.o. medications Marijuana use Positive ketones Leukocytosis unclear etiology Hypokalemia Gap open at 16 ruled out DKA Vape use History of UTIs Plan Admit to med surge Antiemetics Pain management CT abdomen and pelvis ordered UA noted UDS Replete lytes UA noted NS 1 L given ED Lactic UDS Blood cultures CT abdomen and pelvis ordered and noted Hemoglobin A1C Accu-Cheks ABG Diet IV fluids IV morphine Home medications reconciled DVT prophylaxis-SCDs PUD prophylaxis PPIs Discussed plan of care with patient and nurse Counseled patient on cessation of vape and marijuana use [id number] Behavior change smoking greater than 10 minutes about use of other options also gave option of nicotine patch [id number] Preventive counseling healthy eating habits, physical activity, and regular checkups Plan discussed with: Patient Date of Service: Aug 06, 2025 Billing Provider: ЮЛИЯ DIANE Common Visit Codes: [id number] INP/OBS CARE (HIGH) Secondary Visit Codes: [id number] COUNSELING IND, [id number] CHNG SMOKING >10MIN ЮЛИЯ DIANE Aug 06, 2025 09:12
[2025-08-06 09:45] LABS: Base Excess -0.9 mmol/L (-2.0-3.0)
--- NOTE | 2025-08-06 09:52 | DVH ---
EXAM: CT CT AB PEL WO CON-NO ORAL OR IV HISTORY: n/v COMPARISON: CT CT AB PEL WO CON-NO ORAL OR IV on DOS: 04/19/25, CT CT AB PEL WO CON-NO ORAL OR IV on D OS: 06/30/24 TECHNIQUE: Helical CT images of the abdomen and pelvis were performed without IV contrast. Sagittal a nd coronal reformatted images were obtained. This CT exam was performed using one or more of the foll owing dose reduction techniques: Automated exposure control, adjustment of the mA and/or kv according to patient size, or the use of iterative reconstruction techniques. Radiation Dose: Abdomen/Pelvis: CTDIvol 7.81 mGy, DLP 388.39 mGy*cm. FINDINGS: CT abdomen: The lung bases are clear. The heart is not enlarged. The noncontrast liver, spleen, gallb ladder, pancreas, kidneys, and adrenal glands are unremarkable. No abdominal aortic aneurysm. CT pelvis: No abnormal bowel dilatation or free air. There is low volume free fluid in the pelvis. The urinary bladder is unremarkable. The appendix does not appear dilated or inflamed. urinary bladde r are unremarkable. IMPRESSION: 1. Low volume free fluid in the pelvis, likely physiologic. 2. No evidence of bowel obstruction, acute appendicitis, or other acute process in the abdomen or pel vis.
[2025-08-06] MEDS: SODIUM CHLORIDE 0.9% 1,000 ML IV SCH (10:09)
[2025-08-06] MEDS: PANTOPRAZOLE 40 MG/10 ML VIAL INJ IV ONE (10:11)
[2025-08-06] MEDS: POTASSIUM CHL 20 Meq TABLET PO ONE (10:11)
[2025-08-06] MEDS: PROCHLORPERAZINE EDISYLATE 5 MG/ML 2ML VIAL IV ONE (10:13)
[2025-08-06] MEDS: KETOROLAC TROMETH 30 MG/ML 1ML VIAL IV ONE (10:15)
[2025-08-06 10:49] LABS: Amphetamine Screen, Urine Neg (NEGATIVE); Barbiturate Scree,Urine Neg (NEGATIVE); Benzodiazephine Screen, Urine Neg (NEGATIVE); Cannabinoid Screen, Urine Pos (NEGATIVE); Cocaine Screen, Urine Neg (NEGATIVE); Opiate Scree,Urine Neg (NEGATIVE); Phencyclidine Screen, Urine Neg (NEGATIVE)
[2025-08-06] MEDS: PANTOPRAZOLE 40 MG/10 ML VIAL INJ IV SCH (16:45)
[2025-08-07] MEDS ORDERED: MORPHINE SULFATE INJ 2 MG/ml SYRG IV PRN (05:30)
[2025-08-07] MEDS: HYDROcodone-ACET 5/325MG TAB PO PRN (05:31)
[2025-08-07] MEDS: ONDANSETRON HCL 4 MG/2 ML VIAL IV PRN (05:33)
[2025-08-07 10:19] VITALS: BP 128/74; PULSE 76; RESP 16; TEMP 98; O2SAT 99
[2025-08-07 12:44] VITALS: BP 130/75; PULSE 94; RESP 18; TEMP 97.7; O2SAT 96
[2025-08-07] MEDS: SODIUM CHLORIDE 0.9% 1,000 ML IV SCH (14:15)
--- NOTE | 2025-08-07 16:31 | DVHPN2 ---
Reviewed: H&P Changes from previous H/P or p: No Changes General: Per HPI Gastrointestinal: Nausea, Vomiting, Abdominal Pain, Other (Hematemesis) Objective Vitals Vital Signs Date Time Temp Pulse Resp B/P (MAP) Pulse Ox O2 Delivery O2 Flow Rate FiO2 08/07/25 12:44 97.7 94 18 130/75 (93) 96 97.7 08/06/25 08:41 Room Air Intake/Output Intake and Output 08/07/25 07:00 Intake Total 1170 ml Balance 1170 ml Intake IV Total 1170 ml Exam General Appearance: Alert, Oriented X3, Cooperative, No acute distress HEENT: Atraumatic, PERRLA, EOMI, Mucous membr. moist/pink Respiratory: Clear to auscultation, Normal air movement Cardiovascular: Normal S1, Normal S2, No murmurs Abdominal: Normal bowel sounds, Soft Extremities: No clubbing, No cyanosis, No edema, Normal pulses Skin: No significant lesion Neuro: Normal gait, Normal speech, Strength at 5/5 X4 ext, Normal tone, Sensation intact Psych/Mental Status: Mental status NL, Mood NL Medications Current Medications Medications Dose Ordered Sig/Nikki Route Start Time Stop Time Status Last Admin Dose Admin Ceftriaxone Sodium 50 ml @ 100 mls/hr DAILY@09 IV 08/06/25 09:00 08/07/25 09:33 100 MLS/HR Ergocalciferol 50,000 unit QWEEKLY PO 08/13/25 10:00 Pantoprazole Sodium 40 mg DAILY IV 08/06/25 15:30 08/07/25 09:33 40 MG Acetaminophen/ Hydrocodone Bitart 1 tab Q4HP PRN PO 08/07/25 05:30 08/07/25 09:34 1 TAB Ondansetron HCl 4 mg Q4HP PRN IV 08/07/25 05:30 08/07/25 09:33 4 MG Acetaminophen 650 mg Q6HP PRN PO 08/07/25 05:30 Morphine Sulfate 2 mg Q4HPRN PRN IV 08/07/25 05:30 Sodium Chloride 1,000 ml @ 75 mls/hr [id number] IV 08/07/25 14:15 08/07/25 14:15 75 MLS/HR Hydromorphone HCl 0.25 mg Q4HPRN PRN IV 08/07/25 15:00 Laboratory Results Laboratory Tests 08/06/25 08:15 Urinalysis Test 08/06/25 08:16 Urine Color Yellow (Yellow) Urine Clarity Turbid (Clear) H Urine pH 6.0 (5.0-9.0) Urine Specific [place] 1.025 (1.001-1.035) Urine Protein 1+ (Negative) H Urine Ketones 3+ (Negative) H Urine Blood Negative /uL (Negative) Urine Nitrite Negative (Negative) Urine Bilirubin Negative (Negative) Urine Urobilinogen Normal mg/dL (Negative) Urine Leukocyte Esterase Negative /uL (Negative) Urine RBC 3 /hpf (0 - 4) Urine Microscopic WBC 4 /HPF (0-5) Urine Squamous Epithelial Cells Few /hpf (<5) Urine Bacteria None seen /hpf (None Seen) Urine Mucus Moderate (None Seen) Urine Glucose Normal mg/dL (Normal) Microbiology Microbiology Date/Time Source Procedure Growth Status 08/06/25 09:55 Blood Blood Culture - Preliminary NO GROWTH AFTER 24 HOURS OF INCUBATION. Resulted Labs and/or images reviewed: Labs reviewed by me, Image(s) reviewed by me Assessment/Plan Assessment/Plan 19-year-old female with past medical history of UTIs and marijuana use who presents to the ED with nausea and vomiting x 3 days. Patient also reports vomiting streaks of blood for the last 2 days. She does not recall how many times she has vomited since the initial episode. She reports that she uses vape and marijuana. She reports that she uses marijuana twice per week for the last year. She reports that this is the 1st time these symptoms have, about. Her last marijuana use was 2 days prior to her having the nausea and vomiting. Patient denies any recent trauma or injury, recent sick contacts, recent travels, recent ingestion of spoiled food, chest pain, shortness of breath, fever, chills, lightheadedness, weakness, dizziness, or urinary symptoms. 08/07: Patient has been NPO. We will try full liquid diet. Continue IV antibiotics for gastroenteritis. Patient THC positive on UDS endorses only 1 use of smoking/inhalation marijuana blunt. Cannabinoid hyperemesis still possible. Although gastroenteritis likely. Diagnosis Sepsis due to below Gastroenteritis, infectious etiology likely Tachycardia Tachypnea Low-grade leukocytosis Cannabinoid hyperemesis syndrome, possible Starvation ketosis, likely causing gap acidosis DKA ruled out Lactic acidosis ruled out History of UTI Plan: IV antibiotics, ceftriaxone, Flagyl IV fluids Prn analgesia Prn antiemetics Continue other home medications Full liquid diet Med surge Full code Plan discussed with: Patient My Orders Orders - TERRELL SCOTT MD Procedure Category Date Status Time Sodium Chloride 0.9% PHA 08/07/25 In Process 14:15 Full Liq Diet DIET 08/07/25 Transmitted Dinner Hydromorphone PHA 08/07/25 In Process Injection (Dilaudid 15:00 Date of Service: Aug 07, 2025 Billing Provider: TERRELL SCOTT MD Common Visit Codes: [id number] INP/OBS CARE(HIGH) TERRELL SCOTT MD Aug 07, 2025 16:31
[2025-08-07 16:55] VITALS: BP 131/72; PULSE 80; RESP 16; TEMP 97.9; O2SAT 95
[2025-08-07 18:35] VITALS: PULSE 94; RESP 16; O2SAT 97
[2025-08-07] MEDS ORDERED: IBUP-1453 PO (18:46)
[2025-08-07 21:00] VITALS: BP 118/70; PULSE 72; RESP 20; TEMP 98.3; O2SAT 98
[2025-08-07 23:38] VITALS: BP 119/71; PULSE 94; RESP 16; TEMP 98.1; O2SAT 97
[2025-08-08] VITALS (7 sets, daily range): BP systolic 108–136; BP diastolic 70–89; PULSE 64–98; RESP 16–20; TEMP 98–98.5; O2SAT 97–100
[2025-08-08] MEDS: HYDROmorphone HCL 2 MG/ML VL/or syr IV PRN (00:46)
[2025-08-08 06:25] LABS: Hematocrit 35.2 % (36.0-46.0); Hemoglobin 11.7 g/dL (12.2-16.2); Mean Corpuscular Hemoglobin 28.5 pg (28.0-32.0); Mean Corpuscular Volume 85.9 fL (80.0-100.0); Nucleated Red Blood Cells % 0.0 %
[2025-08-08 06:36] LABS: Alanine Aminotransferase 13 U/L (7-40); Albumin 4.3 g/dL (3.2-4.8); Anion Gap 12 (5-15); Carbon Dioxide 24 mmol/L (20-31); Chloride 99 mmol/L (98-107); Glucose 102 mg/dL (74-106); Total Protein 7.3 g/dL (5.7-8.2)
[2025-08-08 06:37] LABS: Alkaline Phosphatase 131 U/L (46-116); BUN/Creatinine Ratio 7.9 (10.0-20.0); Bilirubin, Total 0.6 mg/dL (0.2-1.0); Blood Urea Nitrogen < 5 mg/dL (9-23); Calcium 8.7 mg/dL (8.7-10.4); Potassium 3.0 mmol/L (3.5-5.1); Sodium 135 mmol/L (136-145)
--- NOTE | 2025-08-08 13:00 | DVH ---
Date: 08/08/2025 11:53 AM Examination: XY KUB ABDOMEN SINGLE VIEW History: Upper gastric pain worsening Comparison: None TECHNIQUE: Frontal views of the abdomen was obtained. FINDINGS: Bowel gas pattern is unremarkable. The lung bases are unremarkable. No acute osseous abnormality identified. IMPRESSION: 1. No findings to suggest bowel obstruction. 2. Stool and bowel gas scattered throughout the colon.
--- NOTE | 2025-08-08 13:10 | DVHPN2 ---
Reviewed: H&P Changes from previous H/P or p: No Changes General: Per HPI Gastrointestinal: Nausea, Vomiting, Abdominal Pain, Other (Hematemesis) Objective Vitals Vital Signs Date Time Temp Pulse Resp B/P (MAP) Pulse Ox O2 Delivery O2 Flow Rate FiO2 08/08/25 13:00 98.2 64 20 129/89 (102) 97 98.2 08/07/25 18:35 Room Air* 0 21 Intake/Output Intake and Output 08/08/25 07:00 Intake Total 1550 ml Balance 1550 ml Intake Oral 500 ml IV Total 1050 ml # Voids 5 # Bowel Movements 1 Exam General Appearance: Alert, Oriented X3, Cooperative, No acute distress HEENT: Atraumatic, PERRLA, EOMI, Mucous membr. moist/pink Respiratory: Clear to auscultation, Normal air movement Cardiovascular: Normal S1, Normal S2, No murmurs Abdominal: Normal bowel sounds, Soft Extremities: No clubbing, No cyanosis, No edema, Normal pulses Skin: No significant lesion Neuro: Normal gait, Normal speech, Strength at 5/5 X4 ext, Normal tone, Sensation intact Psych/Mental Status: Mental status NL, Mood NL Medications Current Medications Medications Dose Ordered Sig/Nikki Route Start Time Stop Time Status Last Admin Dose Admin Ceftriaxone Sodium 50 ml @ 100 mls/hr DAILY@09 IV 08/06/25 09:00 08/08/25 09:00 100 MLS/HR Ergocalciferol 50,000 unit QWEEKLY PO 08/13/25 10:00 Pantoprazole Sodium 40 mg DAILY IV 08/06/25 15:30 08/08/25 10:00 40 MG Acetaminophen/ Hydrocodone Bitart 1 tab Q4HP PRN PO 08/07/25 05:30 08/08/25 04:56 1 TAB Ondansetron HCl 4 mg Q4HP PRN IV 08/07/25 05:30 08/08/25 11:04 4 MG Acetaminophen 650 mg Q6HP PRN PO 08/07/25 05:30 Morphine Sulfate 2 mg Q4HPRN PRN IV 08/07/25 05:30 Sodium Chloride 1,000 ml @ 75 mls/hr [id number] IV 08/07/25 14:15 08/08/25 03:36 75 MLS/HR Hydromorphone HCl 0.25 mg Q4HPRN PRN IV 08/07/25 15:00 08/08/25 11:04 0.25 MG Laboratory Results Laboratory Tests 08/08/25 05:14 Chemistry Test 08/08/25 05:14 Albumin 4.3 g/dL (3.2-4.8) Calcium Level 8.7 mg/dL (8.7-10.4) Total Protein 7.3 g/dL (5.7-8.2) LFT Test 08/08/25 05:14 Alanine Aminotransferase (ALT) 13 U/L (7-40) Alkaline Phosphatase 131 U/L (46-116) H Aspartate Amino Transferase (AST) 17 U/L (13-40) Total Bilirubin 0.6 mg/dL (0.2-1.0) Urinalysis Test 08/06/25 08:16 Urine Color Yellow (Yellow) Urine Clarity Turbid (Clear) H Urine pH 6.0 (5.0-9.0) Urine Specific [place] 1.025 (1.001-1.035) Urine Protein 1+ (Negative) H Urine Ketones 3+ (Negative) H Urine Blood Negative /uL (Negative) Urine Nitrite Negative (Negative) Urine Bilirubin Negative (Negative) Urine Urobilinogen Normal mg/dL (Negative) Urine Leukocyte Esterase Negative /uL (Negative) Urine RBC 3 /hpf (0 - 4) Urine Microscopic WBC 4 /HPF (0-5) Urine Squamous Epithelial Cells Few /hpf (<5) Urine Bacteria None seen /hpf (None Seen) Urine Mucus Moderate (None Seen) Urine Glucose Normal mg/dL (Normal) Microbiology Microbiology Date/Time Source Procedure Growth Status 08/06/25 09:55 Blood Blood Culture - Preliminary NO GROWTH AFTER 48 HOURS OF INCUBATION. Resulted Labs and/or images reviewed: Labs reviewed by me, Image(s) reviewed by me Assessment/Plan Assessment/Plan 19-year-old female with past medical history of UTIs and marijuana use who presents to the ED with nausea and vomiting x 3 days. Patient also reports vomiting streaks of blood for the last 2 days. She does not recall how many times she has vomited since the initial episode. She reports that she uses vape and marijuana. She reports that she uses marijuana twice per week for the last year. She reports that this is the 1st time these symptoms have, about. Her last marijuana use was 2 days prior to her having the nausea and vomiting. Patient denies any recent trauma or injury, recent sick contacts, recent travels, recent ingestion of spoiled food, chest pain, shortness of breath, fever, chills, lightheadedness, weakness, dizziness, or urinary symptoms. 08/07: Patient has been NPO. We will try full liquid diet. Continue IV antibiotics for gastroenteritis. Patient THC positive on UDS endorses only 1 use of smoking/inhalation marijuana blunt. Cannabinoid hyperemesis still possible. Although gastroenteritis likely. 08/08: Continues to have pain requiring IV analgesia, to have nausea. She had recently had EGD 1 month ago in [place] where she is found to have H pylori, failed first-line treatment. We will consult GI has been continues and possibly has failed/resistant H pylori. May need repeat EGD. We will continue treatment for gastroenteritis and defer further antibiotic changes to GI. Continue IV, continue Protonix,, continue full liquid diet, Diagnosis : Sepsis due to below Gastroenteritis, infectious etiology likely Tachycardia Tachypnea Low-grade leukocytosis Cannabinoid hyperemesis syndrome, possible Starvation ketosis, likely causing gap acidosis DKA ruled out Lactic acidosis ruled out History of UTI Plan: IV antibiotics, ceftriaxone, Flagyl IV fluids Prn analgesia Prn antiemetics Continue other home medications Full liquid diet Med surge Full code Plan discussed with: Patient My Orders Orders - TERRELL SCOTT MD Procedure Category Date Status Time Sodium Chloride 0.9% PHA 08/07/25 In Process 14:15 Full Liq Diet DIET 08/07/25 Transmitted Dinner Hydromorphone PHA 08/07/25 In Process Injection (Dilaudid 15:00 Kub Abdomen Single XY 08/08/25 Resulted View 11:16 * [facility] [employer] CONS 08/08/25 Transmitted 11:20 Date of Service: Aug 08, 2025 Billing Provider: TERRELL SCOTT MD Common Visit Codes: [id number] INP/OBS CARE(HIGH) TERRELL SCOTT MD Aug 08, 2025 13:10
[2025-08-08] MEDS: POTASSIUM CHLORIDE 40 MEQ, LIDOCAINE 1% (LOCAL ANESTH.) 4 ML in SODIUM CHL 0.9% 250 ML IV ONE (20:33)
--- NOTE | 2025-08-08 22:42 | DVHINCON2 ---
Date of service: Aug 08, [address] Miller Reason for Consultation N/V History of Present Illness Mariely Gaffney is a 19-year-old female with past medical history of UTIs and marijuana use who presents to the ED with nausea and vomiting x 3 days. Patient also reports vomiting streaks of blood for the last 2 days. She does not recall how many times she has vomited since the initial episode. She reports that she uses vape and marijuana. She reports that she uses marijuana twice per week for the last year. She reports that this is the 1st time these symptoms have, about. Her last marijuana use was 2 days prior to her having the nausea and vomiting. Patient denies any recent trauma or injury, recent sick contacts, recent travels, recent ingestion of spoiled food, chest pain, shortness of breath, fever, chills, lightheadedness, weakness, dizziness, or urinary symptoms. Patient does have a history of H.pylori and is having intractable abdominal pain Past Medical History Renal/: UTI Past Surgical History Past Surgical History: None Family History: Diabetes mellitus G8 MOTHER, Onset:Unknown G8 FATHER, Onset:Unknown Allergies: Coded Allergies: NO KNOWN ALLERGIES (Unverified , 05/07/24) Home Meds Active Scripts Pantoprazole Sodium Sesquihydr (Protonix) 40 Mg Tab, 40 MG PO DAILY, #30 TAB Prov:ALEX OLIVER MD 08/04/25 Ondansetron Odt 4MG Tab (ZOFRAN PO) 4 Mg Tb, 4 MG PO Q8HPRN PRN for 3 Days, #9 TAB ODT TAB-DISSOLVE IN MOUTH, THEN SWALLOW Prov:ALEX OLIVER MD 08/04/25 Ergocalciferol (VITAMIN D 09365 UNIT) 50,000 [place], [address] UNIT PO QWEEKLY for 30 Days, #10 CAP Prov:YESSICA AWAD 10/05/24 Reported Medications Ibuprofen (Ibuprofen) 400 Mg Tab, 500 MG PO, MG 08/07/25 Ondansetron HCl (Ondansetron Hydrochloride) 4 Mg Tab, 1 TAB PO DAILY 10/05/24 Cephalexin Monohydrate (Cephalexin) 500 Mg Cap, 1 CAP PO QID 10/05/24 Current Medications Current Medications Medications (Trade) Dose Ordered Sig/Nikki Route PRN Reason Start Time Stop Time Status Last Admin Ergocalciferol (Vitamin D 50,000 Unit) 50,000 unit QWEEKLY PO 08/13/25 10:00 Vital Signs Vital Signs Date Time Temp Pulse Resp B/P (MAP) Pulse Ox O2 Delivery O2 Flow Rate FiO2 08/08/25 21:00 98.4 68 16 136/83 (100) 100 98.4 08/08/25 08:00 Room Air* 0 21 Physical Exam General Appearance: Alert, Oriented X3, Cooperative, No acute distress HEENT: Atraumatic, PERRLA, EOMI, Mucous membr. moist/pink Respiratory: Clear to auscultation, Normal air movement Cardiovascular: Normal S1, Normal S2, No murmurs Abdominal: Normal bowel sounds, Soft Extremities: No clubbing, No cyanosis, No edema, Normal pulses Skin: No significant lesion Neuro: Normal gait, Normal speech, Strength at 5/5 X4 ext, Normal tone, Sensation intact Psych/Mental Status: Mental status NL, Mood NL Labs/Diagnostic Data Labs Test 08/08/25 05:14 08/06/25 09:55 08/06/25 09:40 08/06/25 08:16 Range/Units White Blood Count 8.8 4.4-10.8 10^3/uL Red Blood Count 4.10 4.0-5.20 10^6/uL Hemoglobin 11.7 L 12.2-16.2 g/dL Hematocrit 35.2 L 36.0-46.0 % Mean Corpuscular Volume 85.9 80.0-100.0 fL Mean Corpuscular Hemoglobin 28.5 28.0-32.0 pg Mean Corpuscular Hemoglobin Concent 33.2 32.0-36.0 g/dL Red Cell Distribution Width 15.2 H 11.8-14.3 % Platelet Count 274 140-450 10^3/uL Mean Platelet Volume 9.2 6.9-10.8 fL Neutrophils (%) (Auto) 80.3 H 37.0-80.0 % Lymphocytes (%) (Auto) 13.4 10.0-50.0 % Monocytes (%) (Auto) 5.8 0.0-12.0 % Eosinophils (%) (Auto) 0.1 0.0-7.0 % Basophils (%) (Auto) 0.4 0.0-2.0 % Neutrophils # (Auto) 7.0 1.6-8.6 10 ^3/uL Lymphocytes # (Auto) 1.2 0.4-5.4 10 ^3/uL Monocytes # (Auto) 0.5 0-1.3 10 ^3/uL Eosinophils # (Auto) 0 0-0.8 10 ^3/uL Basophils # (Auto) 0 0-0.2 10 ^3/uL Nucleated Red Blood Cells 0.0 % Sodium Level 135 L 136-145 mmol/L Potassium Level 3.0 L 3.5-5.1 mmol/L Chloride Level 99 98-107 mmol/L Carbon Dioxide Level 24 20-31 mmol/L Anion Gap 12 5-15 Blood Urea Nitrogen < 5 L 9-23 mg/dL Creatinine 0.63 0.550-1.02 mg/dL Glomerular Filtration Rate Calc 130 >90 mL/min BUN/Creatinine Ratio 7.9 L 10.0-20.0 Serum Glucose 102 74-106 mg/dL Calcium Level 8.7 8.7-10.4 mg/dL Total Bilirubin 0.6 0.2-1.0 mg/dL Aspartate Amino Transferase (AST) 17 13-40 U/L Alanine Aminotransferase (ALT) 13 7-40 U/L Alkaline Phosphatase 131 H 46-116 U/L Total Protein 7.3 5.7-8.2 g/dL Albumin 4.3 3.2-4.8 g/dL Lactic Acid Level 1.3 0.4-2.0 mmol/L Blood Gas Specimen Type Arterial Blood Gas Sample Site Right radial Blood Gas Patient Temperature 37.0 Arterial Blood Date Drawn [id number] Arterial Blood pH 7.447 7.350-7.450 Arterial Blood Partial Pressure CO2 33.3 32.0-45.0 mmHg Arterial Blood Partial Pressure O2 88.5 83.0-108.0 mmHg Arterial Blood HCO3 22.5 21.0-28.0 mmol/L Arterial Blood Oxygen Saturation 96.4 94.0-98.0 % Arterial Blood Base Excess -0.9 -2.0-3.0 mmol/L Arterial Blood Oxyhemoglobin 95.5 94.0-98.0 % Arterial Blood Carboxyhemoglobin 0.7 0.5-1.5 % Arterial Blood Methemoglobin 0.2 0.0-1.5 % Atul Test Yes Blood Gas Total Hemoglobin 12.30 12.0-16.0 g/dL Blood Gas Modality Room air FiO2 % 21.0 Urine Color Yellow Yellow Urine Clarity Turbid H Clear Urine pH 6.0 5.0-9.0 Urine Specific [place] 1.025 1.001-1.035 Urine Protein 1+ H Negative Urine Ketones 3+ H Negative Urine Blood Negative Negative /uL Urine Nitrite Negative Negative Urine Bilirubin Negative Negative Urine Urobilinogen Normal Negative mg/dL Urine Leukocyte Esterase Negative Negative /uL Urine RBC 3 0 - 4 /hpf Urine Microscopic WBC 4 0-5 /HPF Urine Squamous Epithelial Cells Few <5 /hpf Urine Bacteria None seen None Seen /hpf Urine Mucus Moderate None Seen Urine Glucose Normal Normal mg/dL Urine Opiates Screen Neg NEGATIVE Urine Fentanyl Screen Neg NEGATIVE Urine Barbiturates Screen Neg NEGATIVE Urine Phencyclidine Screen Neg NEGATIVE Urine Amphetamines Screen Neg NEGATIVE Urine Benzodiazepines Screen Neg NEGATIVE Urine Cocaine Screen Neg NEGATIVE Urine Cannabinoids Screen Pos NEGATIVE Test 08/06/25 08:15 Range/Units Hemoglobin A1c 5.1 <5.7 % A1C Microbiology Date/Time Source Procedure Growth Status 08/06/25 09:55 Blood Blood Culture - Preliminary NO GROWTH AFTER 48 HOURS OF INCUBATION. Resulted CT SCAN ABD PELVIS IMPRESSION: 1. Low volume free fluid in the pelvis, likely physiologic. 2. No evidence of bowel obstruction, acute appendicitis, or other acute process in the abdomen or pelvis. Problems(with codes): (1) Cannabinoid hyperemesis syndrome (2) Intractable vomiting (3) Intractable abdominal pain (4) Abdominal pain (5) Vomiting Plan/Recommendation Plan Protonix 40 mg IV q.12 hours Zofran as needed for nausea Carafate 1 g p.o. twice a day NPO in a.m. Possible endoscopy on 08/09/2025 if patient has persistent symptoms Plan discussed with: Other (Dr Miller) TAMMIE HOWARD MD Aug 08, 2025 22:42
[2025-08-09] VITALS (7 sets, daily range): BP systolic 118–142; BP diastolic 61–93; PULSE 76–115; RESP 16–18; TEMP 97.9–100.1; O2SAT 95–100
[2025-08-09 07:30] LABS: Hematocrit 33.1 % (36.0-46.0); Hemoglobin 11.0 g/dL (12.2-16.2); Mean Corpuscular Hemoglobin 28.6 pg (28.0-32.0); Mean Corpuscular Volume 86.6 fL (80.0-100.0); Nucleated Red Blood Cells % 0.0 %
[2025-08-09 07:49] LABS: Alanine Aminotransferase 14 U/L (7-40); Albumin 4.1 g/dL (3.2-4.8); Alkaline Phosphatase 115 U/L (46-116); Anion Gap 11 (5-15); Bilirubin, Total 0.6 mg/dL (0.2-1.0); Carbon Dioxide 26 mmol/L (20-31); Chloride 102 mmol/L (98-107); Glucose 88 mg/dL (74-106); Potassium 3.7 mmol/L (3.5-5.1); Sodium 139 mmol/L (136-145); Total Protein 6.7 g/dL (5.7-8.2)
[2025-08-09 07:50] LABS: BUN/Creatinine Ratio 7.4 (10.0-20.0); Blood Urea Nitrogen < 5 mg/dL (9-23)
[2025-08-09 07:53] LABS: Calcium 8.6 mg/dL (8.7-10.4)
--- NOTE | 2025-08-09 12:19 | DVHPN2 ---
Reviewed: H&P Changes from previous H/P or p: No Changes General: Per HPI Gastrointestinal: Nausea, Vomiting, Abdominal Pain, Other (Hematemesis) Objective Vitals Vital Signs Date Time Temp Pulse Resp B/P (MAP) Pulse Ox O2 Delivery O2 Flow Rate FiO2 08/09/25 09:18 83 22 138/97 08/09/25 09:00 98.2 97 98.2 08/08/25 20:00 Room Air* 0 21 Intake/Output Intake and Output 08/09/25 06:59 Intake Total 2324 ml Balance 2324 ml Intake Oral 2050 ml IV Total 274 ml # Voids 11 # Bowel Movements 1 Exam General Appearance: Alert, Oriented X3, Cooperative, No acute distress HEENT: Atraumatic, PERRLA, EOMI, Mucous membr. moist/pink Respiratory: Clear to auscultation, Normal air movement Cardiovascular: Normal S1, Normal S2, No murmurs Abdominal: Normal bowel sounds, Soft Extremities: No clubbing, No cyanosis, No edema, Normal pulses Skin: No significant lesion Neuro: Normal gait, Normal speech, Strength at 5/5 X4 ext, Normal tone, Sensation intact Psych/Mental Status: Mental status NL, Mood NL Medications Current Medications Medications Dose Ordered Sig/Nikki Route Start Time Stop Time Status Last Admin Dose Admin Ceftriaxone Sodium 50 ml @ 100 mls/hr DAILY@09 IV 08/06/25 09:00 08/09/25 09:17 100 MLS/HR Ergocalciferol 50,000 unit QWEEKLY PO 08/13/25 10:00 Pantoprazole Sodium 40 mg DAILY IV 08/06/25 15:30 08/09/25 09:17 40 MG Acetaminophen/ Hydrocodone Bitart 1 tab Q4HP PRN PO 08/07/25 05:30 08/08/25 04:56 1 TAB Ondansetron HCl 4 mg Q4HP PRN IV 08/07/25 05:30 08/09/25 09:19 4 MG Acetaminophen 650 mg Q6HP PRN PO 08/07/25 05:30 Morphine Sulfate 2 mg Q4HPRN PRN IV 08/07/25 05:30 Sodium Chloride 1,000 ml @ 75 mls/hr [id number] IV 08/07/25 14:15 08/09/25 04:39 75 MLS/HR Hydromorphone HCl 0.25 mg Q4HPRN PRN IV 08/07/25 15:00 08/09/25 09:18 0.25 MG Laboratory Results Laboratory Tests 08/09/25 06:28 Chemistry Test 08/09/25 06:28 Albumin 4.1 g/dL (3.2-4.8) Calcium Level 8.6 mg/dL (8.7-10.4) L Total Protein 6.7 g/dL (5.7-8.2) LFT Test 08/09/25 06:28 Alanine Aminotransferase (ALT) 14 U/L (7-40) Alkaline Phosphatase 115 U/L (46-116) Aspartate Amino Transferase (AST) 14 U/L (13-40) Total Bilirubin 0.6 mg/dL (0.2-1.0) Urinalysis Test 08/06/25 08:16 08/09/25 06:40 Urine Color Yellow (Yellow) Urine Clarity Turbid (Clear) H Urine pH 6.0 (5.0-9.0) Urine Specific [place] 1.025 (1.001-1.035) Urine Protein 1+ (Negative) H Urine Ketones 3+ (Negative) H Urine Blood Negative /uL (Negative) Urine Nitrite Negative (Negative) Urine Bilirubin Negative (Negative) Urine Urobilinogen Normal mg/dL (Negative) Urine Leukocyte Esterase Negative /uL (Negative) Urine RBC 3 /hpf (0 - 4) Urine Microscopic WBC 4 /HPF (0-5) Urine Squamous Epithelial Cells Few /hpf (<5) Urine Bacteria None seen /hpf (None Seen) Urine Mucus Moderate (None Seen) Urine Glucose Normal mg/dL (Normal) Urine Test See comment (Negative) A Microbiology Microbiology Date/Time Source Procedure Growth Status 08/06/25 09:55 Blood Blood Culture - Preliminary NO GROWTH AFTER 72 HOURS OF INCUBATION. Resulted Labs and/or images reviewed: Labs reviewed by me, Image(s) reviewed by me Assessment/Plan Assessment/Plan 19-year-old female with past medical history of UTIs and marijuana use who presents to the ED with nausea and vomiting x 3 days. Patient also reports vomiting streaks of blood for the last 2 days. She does not recall how many times she has vomited since the initial episode. She reports that she uses vape and marijuana. She reports that she uses marijuana twice per week for the last year. She reports that this is the 1st time these symptoms have, about. Her last marijuana use was 2 days prior to her having the nausea and vomiting. Patient denies any recent trauma or injury, recent sick contacts, recent travels, recent ingestion of spoiled food, chest pain, shortness of breath, fever, chills, lightheadedness, weakness, dizziness, or urinary symptoms. -08/07: Patient has been NPO. We will try full liquid diet. Continue IV antibiotics for gastroenteritis. Patient THC positive on UDS endorses only 1 use of smoking/inhalation marijuana blunt. Cannabinoid hyperemesis still possible. Although gastroenteritis likely. -08/08: Continues to have pain requiring IV analgesia, to have nausea. She had recently had EGD 1 month ago in [place] where she is found to have H pylori, failed first-line treatment. We will consult GI has been continues and possibly has failed/resistant H pylori. May need repeat EGD. We will continue treatment for gastroenteritis and defer further antibiotic changes to GI. Continue IV, continue Protonix,, continue full liquid diet, -08/09: Plan was for EGD, some preop work showing patient is by urine and blood beta hydroxy butyrate. Patient is not excited by the news. We will repeat beta hydroxy butyrate and get a obstetric ultrasound. Continue ceftriaxone. Patient is still having pain epigastric region, still concern for PUD H pylori. Appreciate GI following. 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 pt need EGD and OR preop review shows patient is . --patient does not want family/anyone to find out about the , requesting process chemist consult for plan b options. Gyne recommends to continue all workup as patient does not want . Diagnosis : Sepsis due to below Gastroenteritis, infectious etiology likely Tachycardia Tachypnea Low-grade leukocytosis Cannabinoid hyperemesis syndrome, possible Starvation ketosis, likely causing gap acidosis DKA ruled out Lactic acidosis ruled out History of UTI Plan: IV antibiotics, ceftriaxone, Flagyl IV fluids Prn analgesia Prn antiemetics Continue other home medications Full liquid diet Med surge Full code Plan discussed with: Patient My Orders Orders - TERRELL SCOTT MD Procedure Category Date Status Time Obsterical Limited 08/09/25 Logged 12:08 Date of Service: Aug 09, 2025 Billing Provider: TERRELL SCOTT MD Common Visit Codes: [id number] INP/OBS CARE(HIGH) TERRELL SCOTT MD Aug 09, 2025 12:19
--- NOTE | 2025-08-09 13:02 | DVH ---
OB ULTRASOUND <14 WEEKS: HISTORY: assess for TECHNIQUE: Multiple real-time grayscale sonographic images of the pelvis with duplex Doppler color f low, spectral and M-mode analysis. TRANSDUCERS: Transabdominal and transvaginal COMPARISON: US OB TRANS VAGINAL US on DOS: 08/09/25, CT CT AB PEL WO CON-NO ORAL OR IV on DOS: , CT CT AB PEL WO CON-NO ORAL OR IV on DOS: 04/19/25, US ABDOMEN COMPLETE SONOGRAM on DOS: 10/04/24, CT CT AB PEL WO CON-NO ORAL OR IV on DOS: 06/30/24 FINDINGS: The uterus measures 7.1 x 4.7 x 5.3 cm The cervix is not visualized Right ovary measures 3.1 x 1.3 x 2.1 cm with normal Doppler color flow. Left ovary measures 3.6 x 2.1 x 2.5 cm with normal Doppler color flow. Left ovarian hemorrhagic cyst measures 1.5 cm. No intrauterine is visualized at this time. Endometrium measures 2.1 cm. Small volume pelvic free fluid. IMPRESSION: Thickened endometrium, without visualized gestational sac, pole or cardiac activity. Diff erential considerations include early, normal intrauterine , an anembryonic and sp ontaneous . Recommend correlation with follow-up beta hCG levels. Repeat ultrasound could be performed if clinically indicated.
--- NOTE | 2025-08-09 13:28 | DVHPN2 ---
Visit Coding OBGYN Date of Service: Aug 09, 2025 Billing Provider: ZAKIYA MOTT DO MYSQL DEVELOPER Common Visit Codes: [id number] INP/OBS CARE (HIGH) MYSQL DEVELOPER Consultation Codes: [id number] INPATIENT CONSULT (HIGH) ZAKIYA MOTT DO Aug 09, 2025 13:28
--- NOTE | 2025-08-09 14:03 | DVHINCON2 ---
DATE OF CONSULTATION: 08/09/2025 HISTORY OF PRESENT ILLNESS: The patient is a 19-year-old 1, para 0 admitted for intractable nausea and vomiting. The patient states she was diagnosed with H. pylori. She uses marijuana 3 times a week. She did not know she is . She had endoscopy in [place] which they told her she has H. pylori. She was supposed to get endoscopy; however, the procedure is canceled due to positive . The patient denies having any vaginal bleeding. Last menstrual period was 07/09. She denies having any vaginal bleeding or discharge. PAST MEDICAL HISTORY: UTI. PAST SURGICAL HISTORY: None. SOCIAL HISTORY: Positive for vaping and marijuana. FAMILY HISTORY: None. ALLERGIES: No known drug allergies. REVIEW OF SYSTEMS: Consistent with HPI. PHYSICAL EXAMINATION: VITAL SIGNS: Stable, afebrile. HEENT: Within normal limits. CARDIOVASCULAR: Regular rate and rhythm. LUNGS: Clear to auscultation. BREASTS: Symmetrical, no masses. ABDOMEN: Soft, nontender. PELVIC: External genitalia within normal limits. Vagina normal. Cervix grossly normal. Uterus 8-week size. Adnexa nonpalpable, nontender. EXTREMITIES: No clubbing, cyanosis, or edema. IMPRESSION: * Positive level, early . Cannot establish whether this would be a viable . * Intractable nausea, vomiting due to marijuana. * H. pylori per history. PLAN: * I advised the patient to decide on whether she wants to continue with . If so, then she cannot have any endoscopy. The patient states she does not want to. In either case, repeat beta-hCG in 48 hours is needed to establish the progression of . * I spoke to GI specialist as well who states she will cancel the procedure and this can be done outpatient after the patient decides. At this point, we will sign off. Thank you very much for this consultation. DO JUSTIN Miranda/JUAN JOSE TID: [id number] RECEIPT: [id number]
--- NOTE | 2025-08-09 22:21 | DVHPN2 ---
Progress Note - Dictate Date Seen: Aug 09, 2025 Medical Necessity Reason Pt with a Central, PICC or Fol: No Subjective No new complaints, patient seen at bedside Patient was tentatively scheduled for an endoscopy today However this was canceled as her test was positive Patient has no nausea vomiting today Patient states she does not want to keep her and wants an vital signs Vital Sign Date Time Temp Pulse Resp B/P (MAP) Pulse Ox O2 Delivery O2 Flow Rate FiO2 08/09/25 17:46 100.1 113 18 142/93 (109) 97 100.1 08/09/25 08:00 Room Air* 0 21 Total Intake and Output 08/08/25 08/08/25 08/09/25 15:00 23:00 07:00 Intake Total 1200 ml 1124 ml Balance 1200 ml 1124 ml medications Current Medications Medications Dose Ordered Sig/Nikki Route Start Time Stop Time Status Last Admin Dose Admin Ceftriaxone Sodium 50 ml @ 100 mls/hr DAILY@09 IV 08/06/25 09:00 08/09/25 09:17 100 MLS/HR Ergocalciferol 50,000 unit QWEEKLY PO 08/13/25 10:00 Pantoprazole Sodium 40 mg DAILY IV 08/06/25 15:30 08/09/25 09:17 40 MG Acetaminophen/ Hydrocodone Bitart 1 tab Q4HP PRN PO 08/07/25 05:30 08/08/25 04:56 1 TAB Ondansetron HCl 4 mg Q4HP PRN IV 08/07/25 05:30 08/09/25 09:19 4 MG Acetaminophen 650 mg Q6HP PRN PO 08/07/25 05:30 Morphine Sulfate 2 mg Q4HPRN PRN IV 08/07/25 05:30 Sodium Chloride 1,000 ml @ 75 mls/hr [id number] IV 08/07/25 14:15 08/09/25 04:39 75 MLS/HR Hydromorphone HCl 0.25 mg Q4HPRN PRN IV 08/07/25 15:00 08/09/25 09:18 0.25 MG objective General Appearance: Alert, Oriented X3, Cooperative, No acute distress HEENT: Atraumatic, PERRLA, EOMI, Mucous membr. moist/pink Respiratory: Clear to auscultation, Normal air movement Cardiovascular: Normal S1, Normal S2, No murmurs Abdominal: Normal bowel sounds, Soft Extremities: No clubbing, No cyanosis, No edema, Normal pulses Skin: No significant lesion Neuro: Normal gait, Normal speech, Strength at 5/5 X4 ext, Normal tone, Sensation intact Psych/Mental Status: Mental status NL, Mood NL laboratory and microbiology Laboratory Tests 08/09/25 06:28 Test 08/09/25 06:28 Range/Units Serum Glucose 88 74-106 mg/dL Problems(with codes): (1) Cannabinoid hyperemesis syndrome (2) Vomiting (3) Abdominal pain (4) Cannabis use disorder (5) Intractable abdominal pain (6) Intractable vomiting (7) Dehydration (8) Nausea vomiting and diarrhea Prognosis Plan EGD was canceled today because of positive test I would recommend conservative treatment at this time Patient can take Tums 2-4 tablets daily as needed She can follow up in my office as an outpatient to monitor her clinical symptoms Once again thank you for allowing me to participate in the care of this patient Plan discussed with: Patient, Other (Dr Boone) TAMMIE HOWARD MD Aug 09, 2025 22:21
[2025-08-10] VITALS (7 sets, daily range): BP systolic 110–131; BP diastolic 70–85; PULSE 70–93; RESP 16–20; TEMP 98.2–98.7; O2SAT 98–99
--- NOTE | 2025-08-10 10:10 | DVHPN2 ---
Reviewed: H&P Changes from previous H/P or p: No Changes General: Per HPI Gastrointestinal: Nausea, Vomiting, Abdominal Pain, Other (Hematemesis) Objective Vitals Vital Signs Date Time Temp Pulse Resp B/P (MAP) Pulse Ox O2 Delivery O2 Flow Rate FiO2 08/10/25 08:00 91 20 98 Room Air* 0 21 08/10/25 05:00 98.3 126/85 (99) 98.3 Intake/Output Intake and Output 08/10/25 07:00 Intake Total 915 ml Balance 915 ml Intake Oral 915 ml # Voids 8 Exam General Appearance: Alert, Oriented X3, Cooperative, No acute distress HEENT: Atraumatic, PERRLA, EOMI, Mucous membr. moist/pink Respiratory: Clear to auscultation, Normal air movement Cardiovascular: Normal S1, Normal S2, No murmurs Abdominal: Normal bowel sounds, Soft Extremities: No clubbing, No cyanosis, No edema, Normal pulses Skin: No significant lesion Neuro: Normal gait, Normal speech, Strength at 5/5 X4 ext, Normal tone, Sensation intact Psych/Mental Status: Mental status NL, Mood NL Medications Current Medications Medications Dose Ordered Sig/Nikki Route Start Time Stop Time Status Last Admin Dose Admin Ceftriaxone Sodium 50 ml @ 100 mls/hr DAILY@09 IV 08/06/25 09:00 08/10/25 09:40 100 MLS/HR Ergocalciferol 50,000 unit QWEEKLY PO 08/13/25 10:00 Pantoprazole Sodium 40 mg DAILY IV 08/06/25 15:30 08/10/25 09:40 40 MG Acetaminophen/ Hydrocodone Bitart 1 tab Q4HP PRN PO 08/07/25 05:30 08/08/25 04:56 1 TAB Ondansetron HCl 4 mg Q4HP PRN IV 08/07/25 05:30 08/09/25 09:19 4 MG Acetaminophen 650 mg Q6HP PRN PO 08/07/25 05:30 Morphine Sulfate 2 mg Q4HPRN PRN IV 08/07/25 05:30 Sodium Chloride 1,000 ml @ 75 mls/hr [id number] IV 08/07/25 14:15 08/09/25 19:35 75 MLS/HR Hydromorphone HCl 0.25 mg Q4HPRN PRN IV 08/07/25 15:00 08/10/25 01:15 0.25 MG Laboratory Results Laboratory Tests 08/09/25 06:28 Urinalysis Test 08/06/25 08:16 08/09/25 06:40 Urine Color Yellow (Yellow) Urine Clarity Turbid (Clear) H Urine pH 6.0 (5.0-9.0) Urine Specific [place] 1.025 (1.001-1.035) Urine Protein 1+ (Negative) H Urine Ketones 3+ (Negative) H Urine Blood Negative /uL (Negative) Urine Nitrite Negative (Negative) Urine Bilirubin Negative (Negative) Urine Urobilinogen Normal mg/dL (Negative) Urine Leukocyte Esterase Negative /uL (Negative) Urine RBC 3 /hpf (0 - 4) Urine Microscopic WBC 4 /HPF (0-5) Urine Squamous Epithelial Cells Few /hpf (<5) Urine Bacteria None seen /hpf (None Seen) Urine Mucus Moderate (None Seen) Urine Glucose Normal mg/dL (Normal) Urine Test See comment (Negative) A Microbiology Microbiology Date/Time Source Procedure Growth Status 08/06/25 09:55 Blood Blood Culture - Preliminary NO GROWTH AFTER 72 HOURS OF INCUBATION. Resulted Labs and/or images reviewed: Labs reviewed by me, Image(s) reviewed by me Assessment/Plan Assessment/Plan 19-year-old female with past medical history of UTIs and marijuana use who presents to the ED with nausea and vomiting x 3 days. Patient also reports vomiting streaks of blood for the last 2 days. She does not recall how many times she has vomited since the initial episode. She reports that she uses vape and marijuana. She reports that she uses marijuana twice per week for the last year. She reports that this is the 1st time these symptoms have, about. Her last marijuana use was 2 days prior to her having the nausea and vomiting. Patient denies any recent trauma or injury, recent sick contacts, recent travels, recent ingestion of spoiled food, chest pain, shortness of breath, fever, chills, lightheadedness, weakness, dizziness, or urinary symptoms. -08/07: Patient has been NPO. We will try full liquid diet. Continue IV antibiotics for gastroenteritis. Patient THC positive on UDS endorses only 1 use of smoking/inhalation marijuana blunt. Cannabinoid hyperemesis still possible. Although gastroenteritis likely. -08/08: Continues to have pain requiring IV analgesia, to have nausea. She had recently had EGD 1 month ago in [place] where she is found to have H pylori, failed first-line treatment. We will consult GI has been continues and possibly has failed/resistant H pylori. May need repeat EGD. We will continue treatment for gastroenteritis and defer further antibiotic changes to GI. Continue IV, continue Protonix,, continue full liquid diet, -08/09: Plan was for EGD, some preop work showing patient is by urine and blood beta hydroxy butyrate. Patient is not excited by the news. We will repeat beta hydroxy butyrate and get a obstetric ultrasound. Continue ceftriaxone. Patient is still having pain epigastric region, still concern for PUD H pylori. Appreciate GI following. -initial visit (prior this admit, 2 days BALLISTICS TESTER), pt had negative bHCG and so CT and Xray were done on admit. pt need EGD and OR preop review shows patient is . --patient does not want family/anyone to find out about the , requesting drip molder consult for plan b options. Gyne recommends to continue all workup as patient does not want . 08/10: 2 ultrasounds were done yesterday neither 1 of them able to picking crew supervisor intrauterine . We will repeat beta HCG today. Traffic Signal Repairer recommended to continue inpatient workup as patient does not want the , or abortive measures can be taken after inpatient admission. We will discuss with GI to proceed with EGD. Patient is having cramps, we will treat with ibuprofen and Pepcid as a GI prophylaxis. Diagnosis : Sepsis due to below Gastroenteritis, infectious etiology likely Tachycardia Tachypnea Low-grade leukocytosis Cannabinoid hyperemesis syndrome, possible Starvation ketosis, likely causing gap acidosis DKA ruled out Lactic acidosis ruled out History of UTI Plan: IV antibiotics, ceftriaxone, Flagyl IV fluids Prn analgesia Prn antiemetics Continue other home medications Full liquid diet Med surge Full code Plan discussed with: Patient My Orders Orders - TERRELL SCOTT MD Procedure Category Date Status Time Ob Ultrasound Comp US 08/09/25 Resulted Less 14wks 12:08 * [employer] Consultation CONS 08/09/25 Transmitted 12:20 Ob Trans Vaginal Us US 08/09/25 Resulted 12:48 Mechanical Soft Diet DIET 08/09/25 Transmitted Lunch Date of Service: Aug 10, 2025 Billing Provider: TERRELL SCOTT MD Common Visit Codes: [id number] INP/OBS CARE(HIGH) TERRELL SCOTT MD Aug 10, 2025 10:09
[2025-08-10] MEDS ORDERED: ACETAMINOPHEN 325 MG TAB PO PRN (10:15)
[2025-08-10] MEDS ORDERED: IBUPROFEN 600 MG TAB PO PRN (10:15)
[2025-08-10] MEDS: FAMOTIDINE 20 MG TAB PO ONE (11:00)
[2025-08-10] MEDS ORDERED: POLYETHYLENE GLYCOL 17 GM PWDR PO PRN (11:00)
[2025-08-10] MEDS: FAMOTIDINE 20 MG TAB PO SCH (21:06)
[2025-08-11] VITALS (7 sets, daily range): BP systolic 112–137; BP diastolic 62–87; PULSE 74–118; RESP 16–20; TEMP 97.5–98.5; O2SAT 96–100
--- NOTE | 2025-08-11 10:22 | DVHPN2 ---
Reviewed: H&P Changes from previous H/P or p: No Changes General: Per HPI Gastrointestinal: Nausea, Vomiting, Abdominal Pain, Other Objective Vitals Vital Signs Date Time Temp Pulse Resp B/P (MAP) Pulse Ox O2 Delivery O2 Flow Rate FiO2 08/11/25 09:00 98.1 97 16 123/87 (99) 96 98.1 08/11/25 08:00 Room Air* 0 21 Intake/Output Intake and Output 08/11/25 07:00 Intake Total 1350 ml Balance 1350 ml Intake Oral 1300 ml IV Total 50 ml # Voids 8 # Bowel Movements 2 Exam General Appearance: Alert, Oriented X3, Cooperative, No acute distress HEENT: Atraumatic, PERRLA, EOMI, Mucous membr. moist/pink Respiratory: Clear to auscultation, Normal air movement Cardiovascular: Normal S1, Normal S2, No murmurs Abdominal: Normal bowel sounds, Soft Extremities: No clubbing, No cyanosis, No edema, Normal pulses Skin: No significant lesion Neuro: Normal gait, Normal speech, Strength at 5/5 X4 ext, Normal tone, Sensation intact Psych/Mental Status: Mental status NL, Mood NL Medications Current Medications Medications Dose Ordered Sig/Nikki Route Start Time Stop Time Status Last Admin Dose Admin Ceftriaxone Sodium 50 ml @ 100 mls/hr DAILY@09 IV 08/06/25 09:00 08/11/25 08:30 100 MLS/HR Ergocalciferol 50,000 unit QWEEKLY PO 08/13/25 10:00 Pantoprazole Sodium 40 mg DAILY IV 08/06/25 15:30 08/11/25 09:06 40 MG Acetaminophen/ Hydrocodone Bitart 1 tab Q4HP PRN PO 08/07/25 05:30 08/10/25 21:11 1 TAB Ondansetron HCl 4 mg Q4HP PRN IV 08/07/25 05:30 08/10/25 18:50 4 MG Acetaminophen 650 mg Q6HP PRN PO 08/07/25 05:30 Morphine Sulfate 2 mg Q4HPRN PRN IV 08/07/25 05:30 Sodium Chloride 1,000 ml @ 75 mls/hr [id number] IV 08/07/25 14:15 08/10/25 22:21 75 MLS/HR Hydromorphone HCl 0.25 mg Q4HPRN PRN IV 08/07/25 15:00 08/10/25 13:19 0.25 MG Ibuprofen 600 mg BIDPRN PRN PO 08/10/25 10:15 Acetaminophen 650 mg BIDP PRN PO 08/10/25 10:15 Famotidine 20 mg Q12HR PO 08/10/25 22:00 08/11/25 09:06 20 MG Polyethylene Glycol 17 gm DAILYPRN PRN PO 08/10/25 11:00 Laboratory Results Laboratory Tests 08/09/25 06:28 Urinalysis Test 08/06/25 08:16 08/09/25 06:40 Urine Color Yellow (Yellow) Urine Clarity Turbid (Clear) H Urine pH 6.0 (5.0-9.0) Urine Specific [place] 1.025 (1.001-1.035) Urine Protein 1+ (Negative) H Urine Ketones 3+ (Negative) H Urine Blood Negative /uL (Negative) Urine Nitrite Negative (Negative) Urine Bilirubin Negative (Negative) Urine Urobilinogen Normal mg/dL (Negative) Urine Leukocyte Esterase Negative /uL (Negative) Urine RBC 3 /hpf (0 - 4) Urine Microscopic WBC 4 /HPF (0-5) Urine Squamous Epithelial Cells Few /hpf (<5) Urine Bacteria None seen /hpf (None Seen) Urine Mucus Moderate (None Seen) Urine Glucose Normal mg/dL (Normal) Urine Test See comment (Negative) A Microbiology Microbiology Date/Time Source Procedure Growth Status 08/06/25 09:55 Blood Blood Culture - Final NO GROWTH AFTER 5 DAYS OF INCUBATION. Complete Labs and/or images reviewed: Labs reviewed by me, Image(s) reviewed by me Assessment/Plan Assessment/Plan 19-year-old female with past medical history of UTIs and marijuana use who presents to the ED with nausea and vomiting x 3 days. Patient also reports vomiting streaks of blood for the last 2 days. She does not recall how many times she has vomited since the initial episode. She reports that she uses vape and marijuana. She reports that she uses marijuana twice per week for the last year. She reports that this is the 1st time these symptoms have, about. Her last marijuana use was 2 days prior to her having the nausea and vomiting. Patient denies any recent trauma or injury, recent sick contacts, recent travels, recent ingestion of spoiled food, chest pain, shortness of breath, fever, chills, lightheadedness, weakness, dizziness, or urinary symptoms. -08/07: Patient has been NPO. We will try full liquid diet. Continue IV antibiotics for gastroenteritis. Patient THC positive on UDS endorses only 1 use of smoking/inhalation marijuana blunt. Cannabinoid hyperemesis still possible. Although gastroenteritis likely. -08/08: Continues to have pain requiring IV analgesia, to have nausea. She had recently had EGD 1 month ago in [place] where she is found to have H pylori, failed first-line treatment. We will consult GI has been continues and possibly has failed/resistant H pylori. May need repeat EGD. We will continue treatment for gastroenteritis and defer further antibiotic changes to GI. Continue IV, continue Protonix,, continue full liquid diet, -08/09: Plan was for EGD, some preop work showing patient is by urine and blood beta hydroxy butyrate. Patient is not excited by the news. We will repeat beta hydroxy butyrate and get a obstetric ultrasound. Continue ceftriaxone. Patient is still having pain epigastric region, still concern for PUD H pylori. Appreciate GI following. -initial visit (prior this admit, 2 days ESTIMATING MANAGER), pt had negative bHCG and so CT and Xray were done on admit. pt need EGD and OR preop review shows patient is . --patient does not want family/anyone to find out about the , requesting catheter finisher and inspector consult for plan b options. Gyne recommends to continue all workup as patient does not want . 08/10: 2 ultrasounds were done yesterday neither 1 of them able to pickling drum operator intrauterine . We will repeat beta HCG today. Lean Manager recommended to continue inpatient workup as patient does not want the , or abortive measures can be taken after inpatient admission. We will discuss with GI to proceed with EGD. Patient is having cramps, we will treat with ibuprofen and Pepcid as a GI prophylaxis. 08/11: Plan for EGD GI we will DC thereafter, outpatient follow up with Gynecology for . Diagnosis : Sepsis due to below Gastroenteritis, infectious etiology likely Tachycardia Tachypnea Low-grade leukocytosis Cannabinoid hyperemesis syndrome, possible Starvation ketosis, likely causing gap acidosis DKA ruled out Lactic acidosis ruled out History of UTI Plan: IV antibiotics, ceftriaxone, Flagyl IV fluids Prn analgesia Prn antiemetics Continue other home medications Full liquid diet Med surge Full code Plan discussed with: Patient Date of Service: Aug 11, 2025 Billing Provider: TERRELL SCOTT MD Common Visit Codes: [id number] INP/OBS CARE(HIGH) TERRELL SCOTT MD Aug 11, 2025 10:22
[2025-08-11] MEDS: ACETAMINOPHEN 325 MG TAB PO PRN (22:02)
[2025-08-12 01:00] VITALS: BP 129/77; PULSE 87; RESP 20; TEMP 98.1; O2SAT 99
[2025-08-12 05:00] VITALS: BP 108/75; PULSE 82; RESP 20; TEMP 97.9; O2SAT 98
[2025-08-12 07:26] LABS: Hematocrit 35.9 % (36.0-46.0); Hemoglobin 11.5 g/dL (12.2-16.2); Mean Corpuscular Hemoglobin 28.6 pg (28.0-32.0); Mean Corpuscular Volume 88.9 fL (80.0-100.0); Nucleated Red Blood Cells % 0.1 %
[2025-08-12 07:44] LABS: Anion Gap 12 (5-15); Carbon Dioxide 23 mmol/L (20-31); Chloride 104 mmol/L (98-107); Potassium 3.8 mmol/L (3.5-5.1); Sodium 139 mmol/L (136-145)
[2025-08-12 07:47] LABS: Calcium 8.5 mg/dL (8.7-10.4)
[2025-08-12 07:50] LABS: Glucose 85 mg/dL (74-106)
[2025-08-12 07:58] LABS: BUN/Creatinine Ratio 8.2 (10.0-20.0); Blood Urea Nitrogen < 5 mg/dL (9-23)
[2025-08-12 08:00] VITALS: PULSE 98; RESP 17; O2SAT 99
[2025-08-12] MEDS ORDERED: SUCR1TAB31 PO (08:50)
[2025-08-12] MEDS ORDERED: FAMO20TA10 PO (08:50)
--- NOTE | 2025-08-12 08:54 | DVHDS2 ---
Discharge Summary Date of Admission Aug 06, 2025 at 10:28 Date of Discharge: Aug 12, 2025 Labs/Diagnostic Data: Laboratory Results Test 08/12/25 06:12 08/09/25 06:40 08/09/25 06:28 08/06/25 09:55 White Blood Count 8.9 10^3/uL (4.4-10.8) Red Blood Count 4.04 10^6/uL (4.0-5.20) Hemoglobin 11.5 g/dL (12.2-16.2) Hematocrit 35.9 % (36.0-46.0) Mean Corpuscular Volume 88.9 fL (80.0-100.0) Mean Corpuscular Hemoglobin 28.6 pg (28.0-32.0) Mean Corpuscular Hemoglobin Concent 32.1 g/dL (32.0-36.0) Red Cell Distribution Width 15.6 % (11.8-14.3) Platelet Count 272 10^3/uL (140-450) Mean Platelet Volume 8.6 fL (6.9-10.8) Neutrophils (%) (Auto) 63.5 % (37.0-80.0) Lymphocytes (%) (Auto) 28.1 % (10.0-50.0) Monocytes (%) (Auto) 6.4 % (0.0-12.0) Eosinophils (%) (Auto) 1.5 % (0.0-7.0) Basophils (%) (Auto) 0.5 % (0.0-2.0) Neutrophils # (Auto) 5.6 10 ^3/uL (1.6-8.6) Lymphocytes # (Auto) 2.5 10 ^3/uL (0.4-5.4) Monocytes # (Auto) 0.6 10 ^3/uL (0-1.3) Eosinophils # (Auto) 0.1 10 ^3/uL (0-0.8) Basophils # (Auto) 0 10 ^3/uL (0-0.2) Nucleated Red Blood Cells 0.1 % Sodium Level 139 mmol/L (136-145) Potassium Level 3.8 mmol/L (3.5-5.1) Chloride Level 104 mmol/L (98-107) Carbon Dioxide Level 23 mmol/L (20-31) Anion Gap 12 (5-15) Blood Urea Nitrogen < 5 mg/dL (9-23) Creatinine 0.61 mg/dL (0.550-1.02) Glomerular Filtration Rate Calc 131 mL/min (>90) BUN/Creatinine Ratio 8.2 (10.0-20.0) Serum Glucose 85 mg/dL (74-106) Calcium Level 8.5 mg/dL (8.7-10.4) Urine Test See comment (Negative) Total Bilirubin 0.6 mg/dL (0.2-1.0) Aspartate Amino Transferase (AST) 14 U/L (13-40) Alanine Aminotransferase (ALT) 14 U/L (7-40) Alkaline Phosphatase 115 U/L (46-116) Total Protein 6.7 g/dL (5.7-8.2) Albumin 4.1 g/dL (3.2-4.8) Beta HCG, Quantitative 129.3 mIU/mL (1.5-4.2) Lactic Acid Level 1.3 mmol/L (0.4-2.0) Test 08/06/25 09:40 08/06/25 08:16 08/06/25 08:15 Blood Gas Specimen Type Arterial Blood Gas Sample Site Right radial Blood Gas Patient Temperature 37.0 Arterial Blood Date Drawn [id number] Arterial Blood pH 7.447 (7.350-7.450) Arterial Blood Partial Pressure CO2 33.3 mmHg (32.0-45.0) Arterial Blood Partial Pressure O2 88.5 mmHg (83.0-108.0) Arterial Blood HCO3 22.5 mmol/L (21.0-28.0) Arterial Blood Oxygen Saturation 96.4 % (94.0-98.0) Arterial Blood Base Excess -0.9 mmol/L (-2.0-3.0) Arterial Blood Oxyhemoglobin 95.5 % (94.0-98.0) Arterial Blood Carboxyhemoglobin 0.7 % (0.5-1.5) Arterial Blood Methemoglobin 0.2 % (0.0-1.5) Atul Test Yes Blood Gas Total Hemoglobin 12.30 g/dL (12.0-16.0) Blood Gas Modality Room air FiO2 % 21.0 Urine Color Yellow (Yellow) Urine Clarity Turbid (Clear) Urine pH 6.0 (5.0-9.0) Urine Specific [place] 1.025 (1.001-1.035) Urine Protein 1+ (Negative) Urine Ketones 3+ (Negative) Urine Blood Negative /uL (Negative) Urine Nitrite Negative (Negative) Urine Bilirubin Negative (Negative) Urine Urobilinogen Normal mg/dL (Negative) Urine Leukocyte Esterase Negative /uL (Negative) Urine RBC 3 /hpf (0 - 4) Urine Microscopic WBC 4 /HPF (0-5) Urine Squamous Epithelial Cells Few /hpf (<5) Urine Bacteria None seen /hpf (None Seen) Urine Mucus Moderate (None Seen) Urine Glucose Normal mg/dL (Normal) Urine Opiates Screen Neg (NEGATIVE) Urine Fentanyl Screen Neg (NEGATIVE) Urine Barbiturates Screen Neg (NEGATIVE) Urine Phencyclidine Screen Neg (NEGATIVE) Urine Amphetamines Screen Neg (NEGATIVE) Urine Benzodiazepines Screen Neg (NEGATIVE) Urine Cocaine Screen Neg (NEGATIVE) Urine Cannabinoids Screen Pos (NEGATIVE) Hemoglobin A1c 5.1 % A1C (<5.7) Other Laboratory Tests 08/12/25 06:12 Brief Hx & Hospital Course: 19-year-old female with past medical history of UTIs and marijuana use who presents to the ED with nausea and vomiting x 3 days. Patient also reports vomiting streaks of blood for the last 2 days. She does not recall how many times she has vomited since the initial episode. She reports that she uses vape and marijuana. She reports that she uses marijuana twice per week for the last year. She reports that this is the 1st time these symptoms have, about. Her last marijuana use was 2 days prior to her having the nausea and vomiting. Patient denies any recent trauma or injury, recent sick contacts, recent travels, recent ingestion of spoiled food, chest pain, shortness of breath, fever, chills, lightheadedness, weakness, dizziness, or urinary symptoms. -08/07: Patient has been NPO. We will try full liquid diet. Continue IV antibiotics for gastroenteritis. Patient THC positive on UDS endorses only 1 use of smoking/inhalation marijuana blunt. Cannabinoid hyperemesis still possible. Although gastroenteritis likely. -08/08: Continues to have pain requiring IV analgesia, to have nausea. She had recently had EGD 1 month ago in [place] where she is found to have H pylori, failed first-line treatment. We will consult GI has been continues and possibly has failed/resistant H pylori. May need repeat EGD. We will continue treatment for gastroenteritis and defer further antibiotic changes to GI. Continue IV, continue Protonix,, continue full liquid diet, -08/09: Plan was for EGD, some preop work showing patient is by urine and blood beta hydroxy butyrate. Patient is not excited by the news. We will repeat beta hydroxy butyrate and get a obstetric ultrasound. Continue ceftriaxone. Patient is still having pain epigastric region, still concern for PUD H pylori. Appreciate GI following. -initial visit (prior this admit, 2 days RECOIL SPRING WINDER), pt had negative bHCG and so CT and Xray were done on admit. pt need EGD and OR preop review shows patient is . --patient does not want family/anyone to find out about the , requesting business relations manager consult for plan b options. Gyne recommends to continue all workup as patient does not want . 08/10: 2 ultrasounds were done yesterday neither 1 of them able to picker box operator intrauterine . We will repeat beta HCG today. Wire Frame Dipper recommended to continue inpatient workup as patient does not want the , or abortive measures can be taken after inpatient admission. We will discuss with GI to proceed with EGD. Patient is having cramps, we will treat with ibuprofen and Pepcid as a GI prophylaxis. 08/11: Plan for EGD GI we will DC thereafter, outpatient follow up with Gynecology for . 08/12: Patient can get EGD outpatient, nonurgent at this point per GI stand point. Gynecology wants to follow up patient outpatient. No inpatient indication at this point. Patient vital signs stable, stable for discharge as per plan below. Diagnosis : Sepsis due to below Gastroenteritis, infectious etiology likely hCG positive, early likely, Hpylori infection likely, unable to rule out acute gastritis possible PUD likely Tachycardia Tachypnea Low-grade leukocytosis Cannabinoid hyperemesis syndrome, possible Starvation ketosis, likely causing gap acidosis DKA ruled out Lactic acidosis ruled out History of UTI Plan: - Set up twist tester off sedation, follow up with plan for - Continue Pepcid 20 mg twice daily, continue Protonix 40 once daily, continue Carafate 100 mg twice daily - continue other medications per twist tester amputation review - Follow up with PCP, get urgent referral for psych social worker. Avoid alcohol, avoid ibuprofen. Okay to take Tylenol. Condition at Discharge: Fair Final Diagnosis/Problems List Sepsis due to below Gastroenteritis, infectious etiology likely hCG positive, early likely, Hpylori infection likely, unable to rule out acute gastritis possible PUD likely Tachycardia Tachypnea Low-grade leukocytosis Cannabinoid hyperemesis syndrome, possible Starvation ketosis, likely causing gap acidosis DKA ruled out Lactic acidosis ruled out History of UTI Discharge Disposition: Home Discharge Instruct/Medications Scheduled Cephalexin Monohydrate (Cephalexin), 1 CAP PO QID, (Reported) Ergocalciferol (Vitamin D 80964 Unit), 50,000 UNIT PO QWEEKLY Ondansetron HCl (Ondansetron Hydrochloride), 1 TAB PO DAILY, (Reported) Pantoprazole Sodium Sesquihydr (Protonix), 40 MG PO DAILY Scheduled PRN Ondansetron Odt 4MG Tab (Zofran Po), 4 MG PO Q8HPRN PRN Miscellaneous Medications Ibuprofen (Ibuprofen), 500 MG PO, (Reported) Discharge Statement: "Patient was advised to return to the ER or call 911 if any headaches, dizziness, shortness of breath, chest pain, abdominal pain, bleeding, fevers, or worsening of medical condition. Patient was counseled about treatment plan, medications, possible side effects, patientverbalized understanding. All questions were answered to the best of my ability. This discharge took greater then 30 minutes in planning, reviewing documentation, counseling the patient, and discussing with other team members." ASSESSMENT ASSESSMENT Assessment Date of Service: Aug 12, 2025 Billing Provider: TERRELL SCOTT MD Common Visit Codes: [id number] DISCH DAY >30min TERRELL SCOTT MD Aug 12, 2025 08:54
[2025-08-12 09:05] VITALS: BP 119/76; PULSE 98; RESP 17; TEMP 97.6; O2SAT 99
[2025-08-13] MEDS ORDERED: ERGOCALCIFEROL 50,000 UNIT(1.25MG) CAP PO SCH (10:00)
== END 2025-08-12 09:54 | disposition home or self-care (01) | DRG 872 ==
LOC: ER 07:47 → OVERFLOW 10:28 → UNDODISIN 20:48 → WEST WING 08-07 23:38
PROVIDERS: ADMIT Student in an Organized Health Care Education/Training Program; ATTEND Student in an Organized Health Care Education/Training Program
DX: A41.9 Sepsis, unspecified organism (principal); E87.20 Acidosis, unspecified; A09 Infectious gastroenteritis and colitis, unspecified; E87.6 Hypokalemia; B96.81 Helicobacter pylori [H. pylori] as the cause of diseases classified elsewhere; R11.16 Cannabis hyperemesis syndrome; E86.0 Dehydration; E88.89 Other specified metabolic disorders; K27.9 Peptic ulcer, site unspecified, unspecified as acute or chronic, without hemorrhage or perforation; K29.00 Acute gastritis without bleeding; F12.10 Cannabis abuse, uncomplicated; F17.290 Nicotine dependence, other tobacco product, uncomplicated; Z32.01 Encounter for pregnancy test, result positive; Z86.19 Personal history of other infectious and parasitic diseases; Z83.3 Family history of diabetes mellitus; Z87.440 Personal history of urinary (tract) infections; Z79.899 Other long term (current) drug therapy
CPT/HCPCS: 36415; 36600; 74018; 74176; 76801; 76817; 80048; 80053; 80307; 81001; 81025; 82805; 83036; 83605; 84702; 85025; 87040; 96374; 96375; G0378; J1885; J2003; J2405; J2470